=== PATIENT | male | born 1955 | race Caucasian/White ===

== ENCOUNTER → 2016-06-26 | Outpatient (CLI) | payer BC ==
--- NOTE | 2016-06-26 12:56 | ECHOF ---
Referral Reason:R06.09 other forms of dyspnea MEASUREMENTS -------- HEIGHT: 175.3 cm WEIGHT: 117.9 kg BP: RVIDd: 3.8 cm (< 3.3) IVSd: 1.1 cm (0.6 - 1.1) LVIDd: 4.8 cm (3.9 - 5.3) LVPWd: 1.1 cm (0.6 - 1.1) IVSs: 1.1 cm LVIDs: 5.3 cm LVPWs: 0.1 cm LA Diam: 3.9 cm (2.7 - 3.8) LAESV Index (A-L): 22.46 ml/m Ao Diam: 3.3 cm (2.0 - 3.7) AV Cusp: 2.2 cm (1.5 - 2.6) LA Diam: 4.1 cm (2.7 - 3.8) MV E Minor: 0.43 m/s MV DecT: 260 ms MV A Minor: 0.58 m/s MV E/A Ratio: 0.75 RAP: 5.00 mmHg RVSP: 16.08 mmHg FINDINGS -------- Sinus rhythm. This was a technically adequate study. There is mild concentric left ventricular hypertrophy. Overall left ventricular systolic function is low-normal with, an EF between 50 - 55 %. The right ventricle is mild to moderately enlarged. Normal LA size by volume 22+/-6 ml/m2. The right atrial size is normal. There is mild aortic valve sclerosis. There is no evidence of aortic regurgitation. Mild mitral annular calcification present. Mild mitral regurgitation is present. Mild tricuspid regurgitation present. There is no evidence of pulmonary hypertension. The right ventricular systolic pressure, as measured by Doppler, is 16.08mmHg. There is no pulmonic regurgitation present. The aortic root size is normal. There is no pericardial effusion. CONCLUSIONS -------- 1. There is mild concentric left ventricular hypertrophy. 2. There is no pulmonic regurgitation present. 3. The aortic root size is normal. 4. There is no pericardial effusion. 5. Overall left ventricular systolic function is low-normal with, an EF between 50 - 55 %. 6. The right ventricle is mild to moderately enlarged. 7. There is mild aortic valve sclerosis. 8. Mild mitral annular calcification present. 9. Mild mitral regurgitation is present. 10. Mild tricuspid regurgitation present. 11. There is no evidence of pulmonary hypertension. 12. The right ventricular systolic pressure, as measured by Doppler, is 16.08mmHg. P[employer]IC TUBING INSULATION SUPERVISOR: Mitzi Ram RDCS
== END | disposition home or self-care (01) ==
LOC: RADECHMAIN 08:14
PROVIDERS: ATTEND Family Medicine
DX: I08.3 Combined rheumatic disorders of mitral, aortic and tricuspid valves (principal)
CPT/HCPCS: 93306

== ENCOUNTER → 2016-11-27 | Outpatient (CLI) | payer BC ==
[2016-11-27 15:01] LABS: Anion Gap 12 mmol/L; Blood Urea Nitrogen 16 mg/dL (9-20); Calcium 9.2 mg/dL (8.4-10.2); Carbon Dioxide 27 mmol/L (22-30); Chloride 104 mmol/L (98-107); Glucose 162 mg/dL (74-99); Magnesium 1.9 mg/dL (1.6-2.3); Non-African American GFR(MDRD) >60 (>60 ml/min/1.73 sqM); Phosphorous 3.5 mg/dL (2.5-4.5); Sodium 143 mmol/L (137-145)
== END | disposition home or self-care (01) ==
LOC: LABWHC1 13:58
PROVIDERS: ATTEND Internal Medicine Sleep Medicine
DX: I27.0 Primary pulmonary hypertension (principal)
CPT/HCPCS: 36415; 80048; 83735; 84100

== ENCOUNTER → 2017-02-10 | Outpatient (CLI) | payer BC ==
[2017-02-10 17:42] LABS: CH 31.9; HCT 44.6 % (39.0-53.0); HDW 2.57; HGB 14.3 gm/dL (13.0-17.5); MCH 31.1 pg (25.0-35.0); MCHC 32.1 g/dL (31.0-37.0); MCV 96.9 fL (80.0-100.0); RDW 13.6 % (11.5-15.5); WBC 9.6 k/uL (3.8-10.6)
[2017-02-10 17:51] LABS: Anion Gap 13 mmol/L; Blood Urea Nitrogen 15 mg/dL (9-20); Calcium 9.2 mg/dL (8.4-10.2); Carbon Dioxide 25 mmol/L (22-30); Chloride 108 mmol/L (98-107); Glucose 98 mg/dL (74-99); Non-African American GFR(MDRD) >60 (>60 ml/min/1.73 sqM); Potassium 4.4 mmol/L (3.5-5.1); Sodium 146 mmol/L (137-145)
== END | disposition home or self-care (01) ==
LOC: LABWHC1 17:30
PROVIDERS: ATTEND Internal Medicine Interventional Cardiology
DX: Z01.812 Encounter for preprocedural laboratory examination (principal); I10 Essential (primary) hypertension; I25.10 Atherosclerotic heart disease of native coronary artery without angina pectoris
CPT/HCPCS: 36415; 80048; 85027

== ENCOUNTER 2017-02-13 09:53 | Day surgery (SDC) | payer BC ==
[2017-02-12 10:27] VITALS: BMI 39.7
[~2017-02-13 09:53] MED LIST: ALPRAZolam 0.25 MG TAB PO PRN; ALPRAZolam 0.5 MG TAB PO PRN; ASPIRIN 325 MG TAB PO STA; ATORVASTATIN 80 MG TAB PO STA; NITROGLYCERIN SL TABS 0.4 MG TAB SUBLINGUAL PRN; SODIUM CHLORIDE 0.9% 1,000 ML in EMPTY BAG 1 BAG IV ONE
[2017-02-13 10:24] LABS: Glucose,Whole Blood 138 mg/dL (75-99)
[2017-02-13] MEDS ORDERED: IV FLUID CONTINUATION 950 ML IV ONE (12:32)
[2017-02-13] MEDS ORDERED: diphenhydrAMINE 50 MG/ML 1 ML VIAL IVP ONE (12:47)
[2017-02-13] MEDS ORDERED: MIDAZOLAM 2 MG/2 ML VIAL IV ONE (12:47)
[2017-02-13] MEDS ORDERED: LIDOCAINE 2% INJ 20 MG/ML SQ ONE (12:48)
[2017-02-13] MEDS ORDERED: NITROGLYCERIN 1000MCG/10ML SYRINGE INTRACORON ONE (12:57)
[2017-02-13] MEDS ORDERED: IOHEXOL 350 MG/ML 100 ML BOTTLE INJ ONE (13:02)
[2017-02-13] MEDS ORDERED: SODIUM CHLORIDE 0.9% 1,000 ML IV SCH (14:00)
[2017-02-13 15:22] VITALS: RESP 18; TEMP 97.9
[2017-02-13 18:26] VITALS: BP 98/55; PULSE 81
[2017-02-13] MEDS ORDERED: PANTOPRAZOLE 40 MG TABLET PO SCH (21:00)
[2017-02-13] MEDS ORDERED: OXYBUTYNIN 10 MG TAB.ER.24 PO SCH (21:00)
[2017-02-13] MEDS ORDERED: ASPIRIN 81 MG CHEW PO SCH (21:00)
[2017-02-13] MEDS ORDERED: ATORVASTATIN 20 MG TAB PO SCH (21:00)
[2017-02-13] MEDS ORDERED: LISINOPRIL 5 MG TAB PO SCH (21:00)
[2017-02-14] MEDS ORDERED: METOPROLOL TARTRATE 50 MG TAB PO SCH (09:00)
--- NOTE | 2017-02-14 17:40 | CC ---
DATE OF SERVICE: 02/13/2017 PROCEDURE: Left heart catheterization, coronary angiography and left ventriculography. PERFORMED BY: Dr. Jim Olvera. CLINICAL INFORMATION: Mr. Roby Quinteros is a 61 -year-old gentleman with known history of CAD, hypertension, type 2 diabetes. He underwent stenting of the mid LAD performed by me in 2007 and at that time, he had a very critical long lesion in the mid LAD that was stented with drug eluting stents. Because of symptoms suggestive of angina, he was advised repeat cardiac catheterization. Risks, benefits, options and rationale were explained. PROCEDURE NOTE: Under local anesthesia and strict aseptic precautions, a 6 Dominican introducer was placed in the right femoral artery. Using standard Amilcar catheters, I performed coronary angiography and a pigtail catheter was used to perform LV gram. The catheter and sheath were as taken out and AngioSeal device was used to secure hemostasis. He was sent to the room in stable condition. CARDIAC CATHETERIZATION FINDINGS: The left ventricle end diastolic pressure was about 12 mmHg without any gradient across the aortic valve. CORONARY ANGIOGRAPHY FINDINGS: Right coronary artery is dominant vessel, has minor irregularities. No significant disease. Bifurcates into large PDA and PLV both of which supply a sizable amount of myocardium. There is no significant disease in the dominant RCA. Left main coronary artery: This is short, patent disease free vessel that bifurcates into LAD and circumflex. Left anterior descending coronary artery: This is a good caliber vessel that has about 35 to 40% stenosis in the mid portion and beyond this it gives off a diagonal branch and then the stented segment is widely patent. Vessel runs all the way to the apex, gives off several septal and diagonal branches which are free of significant disease. LAD therefore has a mid lesion of 40% which is not significant and the stented segment which is beyond the 40% lesion is widely patent with brisk flow. Left posterior circumflex coronary artery: Technically this is a nondominant vessel, good caliber, good distribution vessel which gives off two obtuse marginal branches that are free of significant disease with minor irregularities and then continues as a posterolateral branch. There were minor irregularities throughout but no significant disease in the nondominant circumflex. LEFT VENTRICULOGRAM: This was performed in 30 degree MORROW projection and revealed a left ventricle which is normal size with good systolic function. There is mild distal anteroapical hypokinesia with estimated ejection fraction 50% by visual inspection. There is no significant mitral regurgitation. FINAL IMPRESSION: This patient has normal filling pressures. Mild anteroapical hypokinesia with estimated ejection fraction of 50%. There was a 40% mid LAD lesion but the stented segment in the LAD is widely patent. The dominant RCA and nondominant circumflex have minor irregularities and no significant disease. RECOMMENDATIONS: The findings were discussed with the patient and . I am recommending continued medical therapy and risk factor modification. The patient will be discharged later today if he remains stable. The patient received moderate conscious sedation for a total duration of 30 minutes with Benadryl and Versed. His oxygenation was monitored closely. MTDD
--- NOTE | 2017-02-14 17:45 | MISC ---
Dear Dr. Singh: Thank you for the opportunity to participate in the care of Mr. Roby Quinteros. This gentleman has noncritical disease in the mid LAD and the stented segment is widely patent. His LV function is fairly well preserved with mild anteroapical hypokinesia. Estimated ejection fraction is 50%. Aggressive medical therapy with risk factor modification is advised. His filling pressures are normal. LV function is fairly well preserved. He does not have any significant obstructive CAD to explain his symptoms of shortness of breath. A full pulmonary evaluation may be beneficial for this patient. Thank you for your referral. Please call for questions. With kindest regards, Sincerely yours, LINDA
== END 2017-02-13 19:03 | disposition home or self-care (01) ==
LOC: CATHCVL 09:53 → 3OBS 13:05 → CATHCVL 19:03
PROVIDERS: ATTEND Internal Medicine Interventional Cardiology
DX: I25.110 Atherosclerotic heart disease of native coronary artery with unstable angina pectoris (principal); I10 Essential (primary) hypertension; E11.9 Type 2 diabetes mellitus without complications; Z95.5 Presence of coronary angioplasty implant and graft; J44.9 Chronic obstructive pulmonary disease, unspecified; E78.00 Pure hypercholesterolemia, unspecified; G47.33 Obstructive sleep apnea (adult) (pediatric); E66.9 Obesity, unspecified; Z68.41 Body mass index [BMI] 40.0-44.9, adult; Z79.84 Long term (current) use of oral hypoglycemic drugs; Z79.82 Long term (current) use of aspirin; Z79.899 Other long term (current) drug therapy; Z87.891 Personal history of nicotine dependence
CPT/HCPCS: 93458; 99152; C1760; C1894 ×2; C1769 ×2; J2001; J2250; J1200; Q9967

== ENCOUNTER → 2017-02-22 | Outpatient (CLI) | payer BC ==
[2017-02-22 10:42] LABS: CH 30.3; CHCM 32.8; HCT 42.3 % (39.0-53.0); HDW 2.81; HGB 14.3 gm/dL (13.0-17.5); MCH 31.4 pg (25.0-35.0); MCHC 33.9 g/dL (31.0-37.0); MCV 92.7 fL (80.0-100.0); Mean Platelet Volume 6.5; RBC 4.57 m/uL (4.30-5.90); RDW 12.9 % (11.5-15.5); WBC 7.5 k/uL (3.8-10.6)
[2017-02-22 10:58] LABS: ALT 58 U/L (21-72); AST 46 U/L (17-59); Alkaline Phosphatase 119 U/L (38-126); Anion Gap 11 mmol/L; Blood Urea Nitrogen 13 mg/dL (9-20); Calcium 9.2 mg/dL (8.4-10.2); Carbon Dioxide 24 mmol/L (22-30); Chloride 106 mmol/L (98-107); Glucose 135 mg/dL (74-99); Non-African American GFR(MDRD) >60 (>60 ml/min/1.73 sqM); Potassium 4.4 mmol/L (3.5-5.1); Sodium 141 mmol/L (137-145); Total Bilirubin 0.4 mg/dL (0.2-1.3); Total Protein 7.2 g/dL (6.3-8.2)
[2017-02-22 11:28] LABS: Prostate Specific Antigen 6.73 ng/mL (0.00-4.00)
== END | disposition home or self-care (01) ==
LOC: LABWHC1 10:20
PROVIDERS: ATTEND Nurse Practitioner Adult Health
DX: I25.10 Atherosclerotic heart disease of native coronary artery without angina pectoris (principal); I10 Essential (primary) hypertension; N40.0 Benign prostatic hyperplasia without lower urinary tract symptoms
CPT/HCPCS: 36415; 80053; 84153; 84154; 85027

== ENCOUNTER → 2017-11-03 | Day surgery (SDC) | payer BC ==
[2017-10-30 13:30] VITALS: BMI 38.7
[~2017-11-03] MED LIST changes: -ALPRAZolam 0.25 MG TAB PO PRN; -ALPRAZolam 0.5 MG TAB PO PRN; -ASPIRIN 325 MG TAB PO STA; -ATORVASTATIN 80 MG TAB PO STA; +LACTATED RINGERS 1,000 ML IV ONE; +LACTATED RINGERS 1,000 ML IV SCH; +LIDOCAINE 1% INJ 10MG/ML (20 ML MDV) ONE; -NITROGLYCERIN SL TABS 0.4 MG TAB SUBLINGUAL PRN; +PROPOFOL 10 MG/ML 20 ML VIAL IV ONE; -SODIUM CHLORIDE 0.9% 1,000 ML in EMPTY BAG 1 BAG IV ONE; +fentaNYL (PF) 50 MCG/ML 2 ML AMP ONE
[2017-11-03 07:05] VITALS: TEMP 97.8
[2017-11-03 07:34] LABS: Glucose,Whole Blood 136 mg/dL (75-99)
--- NOTE | 2017-11-03 07:36 | P.GSHP ---
History of Present Illness H&P Date: 11/03/17 CHIEF COMPLAINT: GERD HISTORY OF PRESENT ILLNESS: The patient is a 62-year-old male who presents reports gastroesophageal reflux disease. Upper endoscopy was offered for further evaluation and management. PAST MEDICAL HISTORY: Please see list. PAST SURGICAL HISTORY: Please see list. MEDICATIONS: Please see list. ALLERGIES: Please see list. SOCIAL HISTORY: No illicit drug use FAMILY HISTORY: No reports of Crohn disease or ulcerative colitis. REVIEW OF ORGAN SYSTEMS: CONSTITUTIONAL: No reports of fevers or chills. GI: Denies any blood in stools or constipation. PHYSICAL EXAM: VITAL SIGNS: Stable GENERAL: Well-developed and pleasant in no acute distress. HEENT: No scleral icterus. Extraocular movements grossly intact. Moist buccal mucosa. NECK: Supple without lymphadenopathy. CHEST: Unlabored respirations. Equal bilateral excursions. CARDIOVASCULAR: Regular rate and rhythm. Distal 2+ pulses. ABDOMEN: Soft, nondistended. MUSCULOSKELETAL: No clubbing, cyanosis, or edema. ASSESSMENT: 1. Gastroesophageal reflux disease PLAN: 1. Recommend proceeding with an upper endoscopy Past Medical History Past Medical History: Coronary Artery Disease (CAD), COPD, Diabetes Mellitus, GERD/Reflux, Hyperlipidemia, Hypertension, Sleep Apnea/CPAP/BIPAP Additional Past Medical History / Comment(s): hx SOB, caudia equina syndrome; has minimal feeling from waist down, hx of hemorrhoids, aspirates food occ. causing persistent sore throat, hoarseness History of Any Multi-Drug Resistant Organisms: None Reported Past Surgical History: Back Surgery, Heart Catheterization With Stent Additional Past Surgical History / Comment(s): Cervical Fusion; Back surgery; Hemorrhoidectomy x 3; eye surgery right eye, cystoscopy, heart stent x1 Past Anesthesia/Blood Transfusion Reactions: No Reported Reaction Additional Past Anesthesia/Blood Transfusion Reaction / Comment(s): Pt states he never has had blood tranfusion Date of Last Stent Placement:: 2007 Smoking Status: Former smoker - Past Family History Father Family Medical History: Cancer Son(s) Family Medical History: Cancer Mother Family Medical History: Neurologic Disorder Additional Family Medical History / Comment(s): parkinsons Medications and Allergies Home Medications Medication Instructions Recorded Confirmed Type Aspirin 81 mg PO BID 11/11/14 11/03/17 History Atorvastatin [Lipitor] 20 mg PO HS 02/12/17 11/03/17 History Lisinopril [Zestril] 5 mg PO QAM 02/12/17 11/03/17 History Metoprolol Tartrate [Lopressor] 25 mg PO BID 02/12/17 11/03/17 History metFORMIN HCL [Glucophage] 500 mg PO BID 02/12/17 11/03/17 History Albuterol Inhaler [Ventolin Hfa 1 - 2 puff INHALATION RT-Q6H PRN 10/30/17 History Inhaler] Bisacodyl [Dulcolax] 5 mg PO BID 10/30/17 11/03/17 History Famotidine 40 mg PO DAILY 10/30/17 11/03/17 History Gabapentin [Neurontin] 100 mg PO DAILY 10/30/17 11/03/17 History Ipratropium-Albuterol Nebulize 3 ml INHALATION Q6HR PRN 10/30/17 11/03/17 History [Duoneb 0.5 mg-3 mg/3 ml Soln] Nitroglycerin Sl Tabs [Nitrostat] 0.4 mg SUBLINGUAL Q5M PRN 10/30/17 11/03/17 History Allergies Allergy/AdvReac Type Severity Reaction Status Date / Time No Known Allergies Allergy Verified 10/30/17 13:23 Surgical - Exam Vital Signs Temp Pulse Resp BP Pulse Ox 97.8 F 73 14 165/79 94 L 11/03/17 07:04 11/03/17 07:04 11/03/17 07:04 11/03/17 07:04 11/03/17 07:04
--- NOTE | 2017-11-03 07:46 | P.PCN ---
Date of Procedure: 11/03/17 Description of Procedure: PREOPERATIVE DIAGNOSIS: Gastroesophageal reflux disease. Morbid obesity. POSTOPERATIVE DIAGNOSIS: Morbid obesity. Gastritis. Gastroesophageal reflux disease. Duodenitis OPERATION: Esophagogastroduodenoscopy with biopsies along antrum and duodenum SURGEON: Jamila Hayes MD ANESTHESIA: MAC. INDICATIONS: The patient is a 62-year-old male who presents with a history of reflux disease. Benefits and risks of the procedure were described. Informed consent was obtained. DESCRIPTION: The patient was brought into the endoscopy suite and laid in the left lateral decubitus position. An Olympus gastroscope was passed along the posterior oropharynx down to the distal esophagus where the squamocolumnar junction was encountered at 42 cm from the incisors. The stomach was entered and no bile reflux was found. Additional findings are listed below. Biopsies with cold forceps were obtained of the antrum. The first through third portion of the duodenum was examined and remarkable for duodenitis. Retroflexion of the scope confirmed Hill grade 2 lower esophageal valve. The squamocolumnar junction demostrated LA grade A erosive esophagitis. The stomach was desufflated. The patient tolerated the procedure well. FINDINGS: Squamocolumnar junction 42 cm from the incisors. Diaphragmatic hiatus at 42 cm. Hill grade 2 lower esophageal valve. LA grade A erosive esophagitis. Active duodenitis. Active gastritis through some bleeding RECOMMENDATIONS: Further recommendations pending results of pathology report. Upper endoscopy as needed. Plan - Discharge Summary New Discharge Prescriptions: No Action Aspirin 81 mg PO BID metFORMIN HCL [Glucophage] 500 mg PO BID Metoprolol Tartrate [Lopressor] 25 mg PO BID Lisinopril [Zestril] 5 mg PO QAM Atorvastatin [Lipitor] 20 mg PO HS Nitroglycerin Sl Tabs [Nitrostat] 0.4 mg SUBLINGUAL Q5M PRN PRN Reason: Angina Albuterol Inhaler [Ventolin Hfa Inhaler] 1 - 2 puff INHALATION RT-Q6H PRN PRN Reason: Shortness Of Breath Famotidine 40 mg PO DAILY Bisacodyl [Dulcolax] 5 mg PO BID Ipratropium-Albuterol Nebulize [Duoneb 0.5 mg-3 mg/3 ml Soln] 3 ml INHALATION Q6HR PRN PRN Reason: Shortness Of Breath Gabapentin [Neurontin] 100 mg PO DAILY Discharge Medication List Aspirin 81 mg PO BID 11/11/14 [History] Atorvastatin [Lipitor] 20 mg PO HS 02/12/17 [History] Lisinopril [Zestril] 5 mg PO QAM 02/12/17 [History] Metoprolol Tartrate [Lopressor] 25 mg PO BID 02/12/17 [History] metFORMIN HCL [Glucophage] 500 mg PO BID 02/12/17 [History] Albuterol Inhaler [Ventolin Hfa Inhaler] 1 - 2 puff INHALATION RT-Q6H PRN [History] Bisacodyl [Dulcolax] 5 mg PO BID 10/30/17 [History] Famotidine 40 mg PO DAILY 10/30/17 [History] Gabapentin [Neurontin] 100 mg PO DAILY 10/30/17 [History] Ipratropium-Albuterol Nebulize [Duoneb 0.5 mg-3 mg/3 ml Soln] 3 ml INHALATION Q6HR PRN 10/30/17 [History] Nitroglycerin Sl Tabs [Nitrostat] 0.4 mg SUBLINGUAL Q5M PRN 10/30/17 [History] Follow up Appointment(s)/Referral(s): Jamila Hayes MD [STAFF PHYSICIAN] - As Needed Patient Instructions/Handouts: *[facility] - (Anesthesia) Endoscopy Discharge Instructions, Upper Endoscopy (DC) Activity/Diet/Wound Care/Special Instructions: REST TODAY, ENCOURAGE FLUIDS AT HOME
[2017-11-03 07:48] VITALS: RESP 16
[2017-11-03 07:56] VITALS: BP 111/72; PULSE 71
== END | disposition home or self-care (01) ==
LOC: ORWHC2ENDO 06:44
PROVIDERS: ATTEND Surgery Plastic and Reconstructive Surgery
DX: K29.50 Unspecified chronic gastritis without bleeding (principal); K22.10 Ulcer of esophagus without bleeding; K21.0 Gastro-esophageal reflux disease with esophagitis; E66.01 Morbid (severe) obesity due to excess calories; Z68.38 Body mass index [BMI] 38.0-38.9, adult; I25.10 Atherosclerotic heart disease of native coronary artery without angina pectoris; E11.9 Type 2 diabetes mellitus without complications; Z79.84 Long term (current) use of oral hypoglycemic drugs; G83.4 Cauda equina syndrome; Z87.891 Personal history of nicotine dependence; J44.9 Chronic obstructive pulmonary disease, unspecified; I10 Essential (primary) hypertension; E78.5 Hyperlipidemia, unspecified; G47.30 Sleep apnea, unspecified; Z99.89 Dependence on other enabling machines and devices; Z95.5 Presence of coronary angioplasty implant and graft; Z79.82 Long term (current) use of aspirin; Z79.899 Other long term (current) drug therapy
CPT/HCPCS: 88305; 43239; J2001; J3010; J2704

== ENCOUNTER → 2017-12-10 | Outpatient (CLI) | payer BC ==
[2017-12-10 11:27] LABS: Blood Urea Nitrogen 12 mg/dL (9-20)
--- NOTE | 2017-12-10 12:19 | CT ---
EXAMINATION TYPE: CT chest w con DATE OF EXAM: 12/10/2017 COMPARISON: 04/05/2016 HISTORY: Follow up to pulmonary nodule CT DLP: 645.7 mGycm Automated exposure control for dose reduction was used. CONTRAST: CT scan of the chest is performed with IV Contrast, patient injected with 100 mL of Isovue 300. FINDINGS: LUNGS: Mild emphysematous change is felt present bilaterally. There is some linear scarring and/ or a telectatic change in both lung bases near diaphragm. No suspicious peripheral nodule or mass is prese nt bilaterally. No pleural effusion or pneumothorax is seen. No suspicious consolidation or groundgla ss opacity is noted. Tracheobronchial tree is patent. MEDIASTINUM: There is borderline subcarinal lymph node measuring 2.3 x 1.2 cm which is stable. No ca rdiomegaly or pericardial effusion is seen. There is coronary artery calcification and/or coronary st ent in the LAD distribution noted. Aorta of normal caliber. OTHER: Multilevel hypertrophic and degenerative change of the spine. IMPRESSION: 1. Mild emphysematous changes with bibasilar linear scar or atelectasis stable. 2. Stable borderline subcarinal lymph node.
== END | disposition home or self-care (01) ==
LOC: RADCTMAIN 10:50
PROVIDERS: ATTEND Internal Medicine Sleep Medicine
DX: J43.9 Emphysema, unspecified (principal)
CPT/HCPCS: 82565; 84520; 71260; 36415; Q9967

== ENCOUNTER → 2018-01-13 | Outpatient (CLI) | payer BC ==
[2018-01-13 13:17] LABS: Anion Gap 9 mmol/L; Blood Urea Nitrogen 13 mg/dL (9-20); Calcium 9.1 mg/dL (8.4-10.2); Carbon Dioxide 26 mmol/L (22-30); Chloride 106 mmol/L (98-107); Glucose 114 mg/dL (74-99); Sodium 141 mmol/L (137-145)
[2018-01-13 13:24] LABS: Potassium 4.3 mmol/L (3.5-5.1)
--- NOTE | 2018-01-13 14:15 | CT ---
EXAMINATION TYPE: CT urogram wo/w con DATE OF EXAM: 01/13/2018 COMPARISON: 12/10/2017 HISTORY: Right flank pain, benign neoplasm of kidney CT DLP: 3704.8 mGycm CONTRAST: Performed and without and with IV Contrast, patient injected with 100 mL of Isovue 300. CT Urography was performed with unenhanced followed by enhanced images of the kidneys, ureters and ur inary bladder. Delayed images were obtained. 3d reconstruction was perfromed at a separate work sta tion. FINDINGS: KIDNEYS/BLADDER: No hydronephrosis. No nephrolithiasis. No disctinct renal mass. Urinary bladder g rossly unremarkable. LUNG BASES-: No visible nodule. No infiltrate. LIVER/GB: No calcified gallstones. No space occupying hepatic lesion. Biliary tree is of normal ca liber. PANCREAS: No inflammation. No distinct mass. SPLEEN: No splenic enlargement. No lesion seen. ADRENALS: No nodule. No thickening. BOWEL: Normal appendix. Normal bowel caliber. No inflammation. GENITAL ORGANS: No gross abnormality. LYMPH NODES: No greater than 1cm abdominal or pelvic lymph nodes are appreciated. AORTA: No significant abnormality. OSSEOUS STRUCTURES: No significant abnormality is seen. OTHER: No significant additional abnormality is seen. IMPRESSION: 1. No evidence for renal mass, hydronephrosis or nephrolithiasis.
== END | disposition home or self-care (01) ==
LOC: RADCTMAIN 12:32
PROVIDERS: ATTEND Surgery
DX: D30.01 Benign neoplasm of right kidney (principal)
CPT/HCPCS: 80048; 74178; 36415; 74400; Q9967

== ENCOUNTER 2018-12-02 11:31 | Emergency (ER) | payer BC ==
[2018-12-02 12:05] VITALS: TEMP 98.8
--- NOTE | 2018-12-02 12:46 | ED ---
General Adult HPI - General Chief complaint: Chest Pain Stated complaint: sent by Dr Singh Time Seen by Provider: 12/02/18 12:00 Source: patient, RN notes reviewed Mode of arrival: ambulatory Limitations: no limitations - History of Present Illness Initial comments: This is a 63-year-old male presents emergency Department complaining of anterior chest pain. Patient states about 2 weeks ago he fell and landed on his chest and causing some significant anterior chest pain that pain lasted about a week and then subsided and then about one week ago it came back and it hurts to take a deep breath it hurts really bad if he coughs or sneezes. Patient states he presses on the left upper chest is tender there but the pain seems to also be center chest where it doesn't hurt to palpate. Patient is very concerned that something else is going on such as a thoracic aneurysm and/or PE and his primary doctor sent him in to get a scan to rule those out. Patient states she short of breath but easily short of breath that he has COPD. Patient denies any palpitations. Patient denies any nausea. Patient states he does have some pain in the back directly across from the sternum but states it also gets worse with deep breathing. Patient denies any pain in the arms or in the jaw. Patient denies headache patient denies any numbness or weakness. Patient denies any abdominal pain. - Related Data Home Medications Medication Instructions Recorded Confirmed Aspirin 81 mg PO BID 11/11/14 12/02/18 Atorvastatin [Lipitor] 20 mg PO HS 02/12/17 12/02/18 Lisinopril [Zestril] 5 mg PO DAILY 02/12/17 12/02/18 Metoprolol Tartrate [Lopressor] 25 mg PO BID 02/12/17 12/02/18 metFORMIN HCL [Glucophage] 500 mg PO BID 02/12/17 12/02/18 Albuterol Inhaler [Ventolin Hfa 1 - 2 puff INHALATION RT-Q6H PRN 10/30/1706/10 Inhaler] Bisacodyl [Dulcolax] 5 mg PO BID PRN 10/30/17 12/02/18 Famotidine 40 mg PO DAILY 10/30/17 12/02/18 Gabapentin [Neurontin] 100 mg PO DAILY 10/30/17 12/02/18 Ipratropium-Albuterol Nebulize 3 ml INHALATION RT-TID 10/30/17 12/02/18 [Duoneb 0.5 mg-3 mg/3 ml Soln] Nitroglycerin Sl Tabs [Nitrostat] 0.4 mg SUBLINGUAL Q5M PRN 10/30/17 12/02/18 Biotin 5 mg PO DAILY 12/02/18 12/02/18 Cholecalciferol [Vitamin D3 (25 5,000 unit PO DAILY 12/02/18 12/02/18 Mcg = 1000 Iu)] Docusate [Colace] 100 mg PO BID PRN 12/02/18 12/02/18 Ibuprofen [Motrin] 800 mg PO Q6H PRN 12/02/18 12/02/18 Lubiprostone [Amitiza] 24 mcg PO BID 12/02/18 12/02/18 Montelukast [Singulair] 10 mg PO HS 12/02/18 12/02/18 Polyethylene Glycol 3350 [Miralax] 17 gm PO DAILY PRN 12/02/18 12/02/18 Allergies Allergy/AdvReac Type Severity Reaction Status Date / Time No Known Allergies Allergy Verified 12/02/18 14:20 Review of Systems ROS Statement: Those systems with pertinent positive or pertinent negative responses have been documented in the HPI. ROS Other: All systems not noted in ROS Statement are negative. Past Medical History Past Medical History: Coronary Artery Disease (CAD), COPD, Diabetes Mellitus, GERD/Reflux, Hyperlipidemia, Hypertension, Sleep Apnea/CPAP/BIPAP Additional Past Medical History / Comment(s): hx SOB, caudia equina syndrome; has minimal feeling from waist down, hx of hemorrhoids, aspirates food occ. causing persistent sore throat, hoarseness History of Any Multi-Drug Resistant Organisms: None Reported Past Surgical History: Back Surgery, Heart Catheterization With Stent Additional Past Surgical History / Comment(s): Cervical Fusion; Back surgery; Hemorrhoidectomy x 3; eye surgery right eye, cystoscopy, heart stent x1 Past Anesthesia/Blood Transfusion Reactions: No Reported Reaction Additional Past Anesthesia/Blood Transfusion Reaction / Comment(s): Pt states he never has had blood tranfusion Date of Last Stent Placement:: 2007 Past Psychological History: Anxiety Smoking Status: Former smoker Past Alcohol Use History: None Reported Past Drug Use History: None Reported - Past Family History Father Family Medical History: Cancer Son(s) Family Medical History: Cancer Mother Family Medical History: Neurologic Disorder Additional Family Medical History / Comment(s): parkinsons General Exam - General Exam Comments Initial Comments: GENERAL: Patient is well-developed and well-nourished. Patient is nontoxic and well- hydrated and is in mild distress. ENT: Neck is soft and supple. No significant lymphadenopathy is noted. Oropharynx is clear. Moist mucous membranes. Neck has full range of motion without elic iting any pain. EYES: The sclera were anicteric and conjunctiva were pink and moist. Extraocular m ovements were intact and pupils were equal round and reactive to light. Eyelids were unremarkable. PULMONARY: Unlabored respirations. Good breath sounds bilaterally. No audible rales rhonchi or wheezing was noted. CARDIOVASCULAR: There is a regular rate and rhythm without any murmurs gallops or rubs. The sternum is not tender however the left upper chest is tender to palpation. Patient states that is one of the areas that is causing quite a bit of pain when he sneezes or coughs. ABDOMEN: Soft and nontender with normal bowel sounds. SKIN: Skin is clear with no lesions or rashes and otherwise unremarkable. NEUROLOGIC: Patient is alert and oriented x3. Cranial nerves II through XII are grossly intact. Motor and sensory are also intact. Normal speech, volume and content. Symmetrical smile. MUSCULOSKELETAL: Normal extremities with adequate strength and full range of motion. Mild pedal edema. No calf tenderness. LYMPHATICS: No significant lymphadenopathy is noted PSYCHIATRIC: Normal psychiatric evaluation. Limitations: no limitations Course Vital Signs 12/02/18 12/02/18 12/02/18 12:02 12:25 14:00 Temperature 98.8 F Pulse Rate 98 85 Pulse Rate [ 72 Bilateral Disassembler Product ] Respiratory 20 18 Rate Blood Pressure 149/88 135/84 O2 Sat by Pulse 96 100 Oximetry Medical Decision Making - Medical Decision Making EKG shows normal sinus rhythm at 90 bpm OH interval is 166 QRS is 110 QT interval 372 QTC is 474. Patient's EKG shows no ST segment elevation or depression or T wave abnormalities are noted. Patient's computed tomography scan of the chest shows no PE or aortic dissection. - Lab Data Result diagrams: 12/02/18 12:20 12/02/18 12:20 Lab Results 12/02/18 12/02/18 12/02/18 Range/Units 12:20 12:20 12:20 WBC 7.8 (3.8-10.6) k/uL RBC 4.15 L (4.30-5.90) m/uL Hgb 13.1 (13.0-17.5) gm/dL Hct 38.4 L (39.0-53.0) % MCV 92.7 (80.0-100.0) fL MCH 31.5 (25.0-35.0) pg MCHC 34.0 (31.0-37.0) g/dL RDW 14.9 (11.5-15.5) % Plt Count 299 (150-450) k/uL Neutrophils % 66 % Lymphocytes % 22 % Monocytes % 6 % Eosinophils % 3 % Basophils % 0 % Neutrophils # 5.2 (1.3-7.7) k/uL Lymphocytes # 1.7 (1.0-4.8) k/uL Monocytes # 0.5 (0-1.0) k/uL Eosinophils # 0.3 (0-0.7) k/uL Basophils # 0.0 (0-0.2) k/uL PT 9.8 (9.0-12.0) sec INR 0.9 (<1.2) APTT 26.0 (22.0-30.0) sec D-Dimer 0.32 (<0.60) mg/L FEU Sodium 142 (137-145) mmol/L Potassium 4.3 (3.5-5.1) mmol/L Chloride 109 H (98-107) mmol/L Carbon Dioxide 24 (22-30) mmol/L Anion Gap 9 mmol/L BUN 14 (9-20) mg/dL Creatinine 0.65 L (0.66-1.25) mg/dL Est GFR (CKD-EPI)AfAm >90 (>60 ml/min/1.73 sqM) Est GFR (CKD-EPI)NonAf >90 (>60 ml/min/1.73 sqM) Glucose 136 H (74-99) mg/dL Calcium 9.1 (8.4-10.2) mg/dL Magnesium 1.9 (1.6-2.3) mg/dL Total Bilirubin 0.2 (0.2-1.3) mg/dL AST 27 (17-59) U/L ALT 23 (21-72) U/L Alkaline Phosphatase 102 (38-126) U/L Troponin I (0.000-0.034) ng/mL Total Protein 7.1 (6.3-8.2) g/dL Albumin 4.1 (3.5-5.0) g/dL 12/02/18 Range/Units 12:20 WBC (3.8-10.6) k/uL RBC (4.30-5.90) m/uL Hgb (13.0-17.5) gm/dL Hct (39.0-53.0) % MCV (80.0-100.0) fL MCH (25.0-35.0) pg MCHC (31.0-37.0) g/dL RDW (11.5-15.5) % Plt Count (150-450) k/uL Neutrophils % % Lymphocytes % % Monocytes % % Eosinophils % % Basophils % % Neutrophils # (1.3-7.7) k/uL Lymphocytes # (1.0-4.8) k/uL Monocytes # (0-1.0) k/uL Eosinophils # (0-0.7) k/uL Basophils # (0-0.2) k/uL PT (9.0-12.0) sec INR (<1.2) APTT (22.0-30.0) sec D-Dimer (<0.60) mg/L FEU Sodium (137-145) mmol/L Potassium (3.5-5.1) mmol/L Chloride (98-107) mmol/L Carbon Dioxide (22-30) mmol/L Anion Gap mmol/L BUN (9-20) mg/dL Creatinine (0.66-1.25) mg/dL Est GFR (CKD-EPI)AfAm (>60 ml/min/1.73 sqM) Est GFR (CKD-EPI)NonAf (>60 ml/min/1.73 sqM) Glucose (74-99) mg/dL Calcium (8.4-10.2) mg/dL Magnesium (1.6-2.3) mg/dL Total Bilirubin (0.2-1.3) mg/dL AST (17-59) U/L ALT (21-72) U/L Alkaline Phosphatase (38-126) U/L Troponin I <0.012 (0.000-0.034) ng/mL Total Protein (6.3-8.2) g/dL Albumin (3.5-5.0) g/dL Disposition Clinical Impression: Chest wall pain Disposition: HOME SELF-CARE Condition: Good Instructions (If sedation given, give patient instructions): Chest Wall Pain (ED) Is patient prescribed a controlled substance at d/c from ED?: No Referrals: Antoni Singh MD [Primary Care Provider] - 1-2 days Time of Disposition: 15:01
[2018-12-02 12:57] LABS: Basophils % (A) 0 %; Eosinophils # (A) 0.3 k/uL (0-0.7); Eosinophils % (A) 3 %; HCT 38.4 % (39.0-53.0); HGB 13.1 gm/dL (13.0-17.5); Lymphocytes # (A) 1.7 k/uL (1.0-4.8); Lymphocytes % (A) 22 %; MCH 31.5 pg (25.0-35.0); MCV 92.7 fL (80.0-100.0); Mean Platelet Volume 6.9; Monocytes # (A) 0.5 k/uL (0-1.0); Monocytes % (A) 6 %; Neutrophils # (A) 5.2 k/uL (1.3-7.7); Neutrophils % (A) 66 %; Platelet Count 299 k/uL (150-450); RBC 4.15 m/uL (4.30-5.90); RDW 14.9 % (11.5-15.5); WBC 7.8 k/uL (3.8-10.6)
[2018-12-02 13:08] LABS: ALT 23 U/L (21-72); AST 27 U/L (17-59); African American GFR (CKD) >90 (>60 ml/min/1.73 sqM); Albumin 4.1 g/dL (3.5-5.0); Alkaline Phosphatase 102 U/L (38-126); Anion Gap 9 mmol/L; Blood Urea Nitrogen 14 mg/dL (9-20); Calcium 9.1 mg/dL (8.4-10.2); Carbon Dioxide 24 mmol/L (22-30); Chloride 109 mmol/L (98-107); Glucose 136 mg/dL (74-99); Magnesium 1.9 mg/dL (1.6-2.3); Potassium 4.3 mmol/L (3.5-5.1); Sodium 142 mmol/L (137-145); Total Bilirubin 0.2 mg/dL (0.2-1.3); Total Protein 7.1 g/dL (6.3-8.2)
[2018-12-02 13:14] LABS: D-Dimer 0.32 mg/L FEU (<0.60); INR 0.9 (<1.2); Prothrombin Time 9.8 sec (9.0-12.0)
[2018-12-02 14:01] VITALS: RESP 18
--- NOTE | 2018-12-02 14:33 | CT ---
EXAMINATION TYPE: CT angio chest DATE OF EXAM: 12/02/2018 COMPARISON: Prior CT chest 12/10/2017 HISTORY: Mid chest pain, back pain CT DLP: 1218 mGycm Automated exposure control for dose reduction was used. CONTRAST: CTA scan of the thorax is performed with IV Contrast, patient injected with 100 mL of Isovue 370, pul monary embolism protocol. MIP images are created and reviewed. 3D reconstructed images are created on an independent workstation and reviewed. FINDINGS: LUNGS: The lungs are remarkable for some probable basilar atelectatic changes or scarring, there is n o concerning parenchymal mass or nodule identified. There is no pleural effusion or pneumothorax se en. The tracheobronchial tree is patent, there is some bronchial wall thickening. AORTA: No additional significant abnormality is seen. MEDIASTINUM: There is satisfactory enhancement of the pulmonary artery and its branches, there is no CT evidence for pulmonary embolism. There are no greater than 1 cm hilar or mediastinal lymph nodes. No pericardial effusion is seen. Coronary artery calcifications are mild to moderate OTHER: No additional significant abnormality is seen. There are changes of gynecomastia. IMPRESSION: CORRELATE FOR POSSIBLE REACTIVE AIRWAYS DISEASE OR BRONCHITIS. No evident pulmonary embolism. No aort ic aneurysm.
[2018-12-02] MEDS ORDERED: KETOROLAC 30 MG/ML 1 ML VIAL IVP STA (15:15)
[2018-12-02 15:27] VITALS: BP 141/82; PULSE 52
== END 2018-12-02 15:43 | disposition home or self-care (01) ==
LOC: EC 11:31
DX: R07.89 Other chest pain (principal); R60.9 Edema, unspecified; I25.10 Atherosclerotic heart disease of native coronary artery without angina pectoris; J44.9 Chronic obstructive pulmonary disease, unspecified; E11.9 Type 2 diabetes mellitus without complications; K21.9 Gastro-esophageal reflux disease without esophagitis; E78.5 Hyperlipidemia, unspecified; I10 Essential (primary) hypertension; G47.30 Sleep apnea, unspecified; Z99.89 Dependence on other enabling machines and devices; F41.9 Anxiety disorder, unspecified; Z87.891 Personal history of nicotine dependence; Z79.82 Long term (current) use of aspirin; Z79.84 Long term (current) use of oral hypoglycemic drugs; Z79.899 Other long term (current) drug therapy; Z95.5 Presence of coronary angioplasty implant and graft
CPT/HCPCS: 36415; 93005; 85379; 80053; 83735; 84484; 85025; 85610; 85730; 71275; 99285; 96374; J1885; Q9967

== ENCOUNTER → 2019-02-19 | Outpatient (CLI) | payer BC ==
[2019-02-19 17:00] LABS: African American GFR (CKD) >90 (>60 ml/min/1.73 sqM); Anion Gap 11 mmol/L; Blood Urea Nitrogen 14 mg/dL (9-20); Carbon Dioxide 22 mmol/L (22-30); Chloride 108 mmol/L (98-107); Glucose 94 mg/dL (74-99); Potassium 4.5 mmol/L (3.5-5.1); Sodium 141 mmol/L (137-145)
--- NOTE | 2019-02-21 08:57 | CT ---
EXAMINATION TYPE: CT abdomen wo/w con DATE OF EXAM: 02/19/2019 COMPARISON: CT urogram dated 01/13/2018 HISTORY: abnormal renal US per patient history however no renal ultrasound available at this institut ion. CT DLP: 2722.0 mGycm Automated exposure control for dose reduction was used. TECHNIQUE: Helical acquisition of images was performed from the lung bases through the top of iliac crest to include entire abdomen. CONTRAST: Performed with Oral Contrast and with IV Contrast, patient injected with 100 mL of Isovue 300. FINDINGS: LUNG BASES: Multifocal pleural parenchymal scarring is seen at the lung bases. LIVER/GB: No cholelithiasis on the unenhanced images. PANCREAS: The liver is slightly hypoattenuated but does not meet criteria for hepatic steatosis. No i ntrahepatic biliary ductal dilatation is seen. No suspicious hepatic mass is identified. Geographic h ypoattenuation along the subcapsular portion of the left hepatic lobe may represent more focal fatty infiltration. No cholelithiasis is seen. No right upper quadrant fat stranding. Common bile duct appe ars within normal limits. SPLEEN: No splenomegaly. No abnormal enhancement. ADRENALS: No nodularity or thickening. KIDNEYS: No nephrolithiasis on the unenhanced images. No hydronephrosis. Cortical medullary and delay ed imaging fails to demonstrate evidence of a suspicious solid renal mass nor suspicious cystic renal mass. BOWEL: Appendix is partially visualized and air-filled, within normal limits. Moderate degree coloni c fecal stasis. No dilated large or small bowel. Diastases recti is mild. LYMPH NODES: No greater than 1 cm short axis lymph nodes in the abdomen. Nonenlarged with prominent portacaval lymph node measures 9 mm in short axis. OSSEOUS STRUCTURES: Mild multilevel degenerative changes of the spine, particularly at L5-S1 with di sc desiccation and vacuum disc phenomenon. FREE AIR: No free air is visualized. IMPRESSION: THREE-PHASE IMAGING OF THE ABDOMEN FAILS TO DEMONSTRATE A SUSPICIOUS RENAL MASS OF EITHER KIDNEY. IF OUTSIDE ULTRASOUND IS MADE AVAILABLE FOR COMPARISON AND ADDENDUM COULD BE PERFORMED. SONOGRAPHIC FIND INGS COULD HAVE BEEN ON THE BASIS OF A PSEUDOMASS OR PROMINENT COLUMN OF MEG.
== END | disposition home or self-care (01) ==
LOC: RADCTMAIN 16:14
PROVIDERS: ATTEND Surgery
DX: D30.01 Benign neoplasm of right kidney (principal); N40.1 Benign prostatic hyperplasia with lower urinary tract symptoms
CPT/HCPCS: 84153; 80048; 74170; 36415; Q9967

== ENCOUNTER 2019-07-29 09:59 | Day surgery (SDC) | payer BC ==
[2019-07-27 11:35] VITALS: BMI 36.1
[~2019-07-29 09:59] MED LIST changes: -LACTATED RINGERS 1,000 ML IV ONE; +LIDOCAINE 1% 20 ML VIAL (10MG/ML) FOR IV START INTRADERMA PRN; -LIDOCAINE 1% INJ 10MG/ML (20 ML MDV) ONE; -PROPOFOL 10 MG/ML 20 ML VIAL IV ONE; -fentaNYL (PF) 50 MCG/ML 2 ML AMP ONE
[2019-07-29 10:35] VITALS: TEMP 97.3
[2019-07-29 10:37] LABS: Glucose,Whole Blood 105 mg/dL (75-99)
[2019-07-29] MEDS ORDERED: PROPOFOL 10 MG/ML 20 ML VIAL IV ONE (10:46)
[2019-07-29] MEDS ORDERED: LIDOCAINE 1% INJ 10MG/ML (20 ML MDV) ONE (10:46)
--- NOTE | 2019-07-29 11:21 | P.PCN ---
Date of Procedure: 07/29/19 Procedure(s) Performed: Brief history: Patient is a pleasant 64-year-old white male scheduled for an elective upper endoscopy as well as colonoscopy as a part of evaluation of epigastric fullness, intermittent dysphagia to solids and rectal bleeding for the last few months duration Procedure performed: Esophagogastroduodenoscopy with biopsy Colonoscopy Preoperative diagnosis: GERD/dysphagia Intermittent rectal bleeding Anesthesia: MAC Procedure: After informed consent was obtained from the patient was brought into the endoscopy unit and IV sedation was administered by anesthesia under continuous monitoring. Initially upper endoscopy was done. The Olympus GF 160 video endoscope was inserted inserted into the mouth and esophagus intubated without any difficulty and was gradually advanced into the stomach and duodenum and carefully examined. The bulb and second part of the duodenum appeared normal. The scope was then withdrawn into the stomach adequately insufflated with air and upon careful examination the antrum had mild gastritis and biopsies were done from this area. The body, cardia and fundus appeared normal. The scope was then withdrawn into the esophagus. The GE junction was located at 40 cm to the incisors. It appeared regular with no erythema erosions or ulcerations. Rest of the esophagus appeared normal. Biopsies were done from the distal esophagus. Patient tolerated the procedure well. At this time the patient continued to remain sedation. Initial digital rectal examination was normal. Olympus CF 160 video colonoscope was then inserted into the rectum and gradually advanced to the cecum without any difficulty. Careful examination was performed as the scope was gradually being withdrawn. The prep was excellent. The cecum, ascending colon, transverse colon, descending colon, sigmoid colon and rectum appeared normal. Retroflexion was performed in the rectum and grade 2 internal hemorrhoids were noted. Patient tolerated the procedure well. Impression: 1. Upper endoscopy revealed mild antral gastritis but no evidence of esophagitis or peptic ulcer disease 2. Colonoscopy revealed grade 2 internal hemorrhoids. Recommendations: Findings of this examination were discussed with the patient as well as his family. He was advised to follow with the biopsy results. He'll be seen in office in 3 weeks. he can have a repeat screening colonoscopy in 10 years.
[2019-07-29 11:43] VITALS: BP 107/71; PULSE 67; RESP 20
== END 2019-07-29 12:20 | disposition home or self-care (01) ==
LOC: ORWHC2ENDO 09:59
PROVIDERS: ATTEND Internal Medicine Gastroenterology
DX: K29.50 Unspecified chronic gastritis without bleeding (principal); K21.0 Gastro-esophageal reflux disease with esophagitis; K64.1 Second degree hemorrhoids; K62.5 Hemorrhage of anus and rectum; R13.10 Dysphagia, unspecified; Z79.82 Long term (current) use of aspirin; Z79.899 Other long term (current) drug therapy; I25.10 Atherosclerotic heart disease of native coronary artery without angina pectoris; Z95.5 Presence of coronary angioplasty implant and graft; J44.9 Chronic obstructive pulmonary disease, unspecified; E11.9 Type 2 diabetes mellitus without complications; G83.4 Cauda equina syndrome; Z98.1 Arthrodesis status
CPT/HCPCS: 88305; 45378; 43239; J2001; J2704

== ENCOUNTER → 2019-12-16 | Outpatient (CLI) | payer BC ==
[2019-12-16 12:03] LABS: HCT 40.8 % (39.0-53.0); HGB 13.1 gm/dL (13.0-17.5); MCH 31.2 pg (25.0-35.0); MCHC 32.1 g/dL (31.0-37.0); MCV 97.3 fL (80.0-100.0); Mean Platelet Volume 7.4; Platelet Count 295 k/uL (150-450); RBC 4.19 m/uL (4.30-5.90); WBC 7.2 k/uL (3.8-10.6)
[2019-12-16 12:05] LABS: African American GFR (CKD) >90 (>60 ml/min/1.73 sqM); Anion Gap 9 mmol/L; Blood Urea Nitrogen 12 mg/dL (9-20); Carbon Dioxide 28 mmol/L (22-30); Chloride 104 mmol/L (98-107); Non-African American GFR(CKD) 88 (>60 ml/min/1.73 sqM); Potassium 4.7 mmol/L (3.5-5.1); Sodium 141 mmol/L (137-145)
== END | disposition home or self-care (01) ==
LOC: LABPAT 10:51
PROVIDERS: ATTEND Internal Medicine Interventional Cardiology
DX: Z01.818 Encounter for other preprocedural examination (principal); R94.39 Abnormal result of other cardiovascular function study
CPT/HCPCS: 36415; 80051; 82565; 84520; 85027

== ENCOUNTER 2019-12-29 06:25 | Day surgery (SDC) | payer BC ==
[2019-12-23 13:24] VITALS: BMI 36.3
[~2019-12-29 06:25] MED LIST changes: +ALPRAZolam 0.25 MG TAB PO PRN; +ALPRAZolam 0.5 MG TAB PO PRN; +ASPIRIN 325 MG TAB PO STA; +ATORVASTATIN 80 MG TAB PO STA; -LACTATED RINGERS 1,000 ML IV SCH; -LIDOCAINE 1% 20 ML VIAL (10MG/ML) FOR IV START INTRADERMA PRN; +NITROGLYCERIN SL TABS 0.4 MG TAB SUBLINGUAL PRN; +SODIUM CHLORIDE 0.9% 1,000 ML in EMPTY BAG 1 BAG IV ONE
[2019-12-29] MEDS ORDERED: SODIUM CHLORIDE 0.9% 1,000 ML IV ONE (06:55)
[2019-12-29] MEDS ORDERED: LIDOCAINE 1% INJ 10MG/ML (20 ML MDV) ONE (07:10)
[2019-12-29] MEDS ORDERED: VERAPAMIL 2.5 MG/ML 2 ML AMP ONE (07:11)
[2019-12-29] MEDS ORDERED: HEPARIN SODIUM 1,000 UN/ML (10ML VL) ONE (07:11)
[2019-12-29] MEDS ORDERED: MIDAZOLAM 2 MG/2 ML VIAL IV ONE (07:33)
[2019-12-29] MEDS: LIDOCAINE 1% INJ 10MG/ML (20 ML MDV) SQ ONE ×2 (07:39→07:51)
[2019-12-29] MEDS ORDERED: BIVALIRUDIN BOLUS 250 MG/50 ML IV ONE (08:12)
[2019-12-29] MEDS ORDERED: NITROGLYCERIN 1000MCG/10ML SYRINGE INTRAARTER ONE (08:14)
[2019-12-29] MEDS ORDERED: BIVALIRUDIN 250 MG in SODIUM CHLORIDE 0.9% 50 ML IV ONE (08:15)
[2019-12-29] MEDS ORDERED: IOPAMIDOL-370 100ML BTL INJ ONE ×2 (08:17)
[2019-12-29] MEDS ORDERED: FUROSEMIDE 10 MG/ML 4 ML VIAL ONE (08:29)
[2019-12-29] MEDS ORDERED: SODIUM CHLORIDE 0.9% 1,000 ML IV SCH (08:30)
[2019-12-29] MEDS ORDERED: FUROSEMIDE 10 MG/ML 4 ML VIAL IV ONE (08:31)
--- NOTE | 2019-12-29 11:06 | CC ---
CARDIAC CATHETERIZATION REPORT DATE OF SERVICE: 12/29/2019 PROCEDURE: Left heart catheterization and coronary angiography. PERFORMED BY: Dr. Jim Olvera. Moderate conscious sedation time was 44 minutes. Patient was administered Versed. Oxygen saturation, hemodynamics and EKG were monitored closely. CLINICAL INFORMATION: Mr. Roby Quinteros is a 64-year-old obese gentleman with history of type 2 diabetes, hypertension, hyperlipidemia, previous stenting of mid LAD, who had a positive stress test, was advised repeat cardiac catheterization. His last cardiac cath was in 2018 and at that time, the LAD was widely patent and circumflex and RCA were free of significant disease. Because of a distal anteroapical fixed defect and as well as the inferoapical inferior apical lateral fixed defect with nuno-infarct ischemia recommend coronary angiography. Risks, benefits, options, rationale explained. Patient understood all details and wished to proceed with the procedure. PROCEDURE NOTE: Under local anesthesia and strict aseptic precautions, I attempted to access from the right radial. There was a lot of spasm, I could not get good access even though had blood return, I could not advance the wire. Therefore, I switched over the right femoral approach. Under local anesthesia and strict aseptic precautions, a 6-Tajik introducer was placed. The patient had some scar tissue. I had to use the dilators of 5-Tajik caliber. Using standard Amilcar catheters, I performed coronary angiography and a same right catheter was used to check LV pressures. Initial injections of the RCA noted that there was a mid lesion of about nearly 80% very smooth. I recommended PCI and started the procedure by giving him some Angiomax and also the initial injection after passing the wire. The vessel at that time was widely patent, suggesting that the observed smooth 70%-80% narrowing was a vasospasm. I took the wire out, gave additional nitroglycerin and took some pictures. It appears that the PDA was a small caliber vessel, but long in distribution and has a mid lesion of about 60%-70%, but the distal RCA lesion which I had initially thought was significant opened up with nitroglycerin suggesting that there was a significant amount of vasospasm with the PDA 60%-70% lesion. I therefore abandoned the PCI procedure and the sheath was taken out and Angio-Seal device used to secure hemostasis and he was sent to the room in a stable condition. CARDIAC CATHETERIZATION FINDINGS: The left ventricular end-diastolic pressure was about 15 mmHg without any gradient across the aortic valve. CORONARY ANGIOGRAPHY FINDINGS: RIGHT CORONARY ARTERY: This is a dominant vessel. There was what seems to be a mid RCA after it made the curve, before bifurcation there was an eccentric smooth narrowing of about 70%-80%. This improved spontaneously by the time I started doing PCI bypassing the wire. Subsequent nitroglycerin further improved the area suggesting that there are vasospasms. The RCA is a dominant vessel. PDA has a mid lesion of about 60%- 70%, but the PDA itself appears to be a relatively small caliber vessel about 2 mm also beyond the stenosis. Beyond the stenosis. The PLV branch is free of significant disease. LEFT MAIN CORONARY ARTERY: Short patent disease-free vessel that bifurcates into LAD and circumflex. LEFT ANTERIOR DESCENDING CORONARY ARTERY: Good caliber vessel extends along the anterior wall, gives off septal and diagonal branches. Midportion where there was a previous stent is widely patent with brisk flow, beyond the stented segment caliber is decent as the blood flow is good. No evidence of any significant obstruction. The diagonal branches and septal branches have minor irregularities. LEFT POSTERIOR CIRCUMFLEX CORONARY ARTERY: Nondominant vessel gives off 2 good-sized obtuse marginals and distal posterolateral branch has minor irregularities, no significant disease. Left ventriculogram was not performed. FINAL IMPRESSION: This patient has significant spasm of mid RCA such that I started to perform PCI, passed a wire and this and then the vessel caliber improved after nitroglycerin. No PCI was performed. There is a PDA lesion involving the midportion after which the caliber becomes small. This is about 60%-70%/ PDA branch of RCA lesion. The previously stented LAD is widely patent. Circumflex has no significant disease. Filling pressures are mildly elevated and no gradient across the aortic valve. RECOMMENDATIONS: Continued medical therapy with the addition of nitrates. This will help improve a left ventricular end-diastolic pressure and also address the question of vasospasms. I will see the patient in the office and make further recommendations. Risk factor modification issues discussed. MMODL / IJN: [id number] /
[2019-12-30 15:35] LABS: Glucose,Whole Blood 140 mg/dL (75-99)
[2019-12-31 08:15] VITALS: BP 128/79; PULSE 68; RESP 18; TEMP 97.8
== END 2019-12-29 13:50 | disposition home or self-care (01) ==
LOC: CATHCVL 06:25
PROVIDERS: ATTEND Internal Medicine Interventional Cardiology
DX: I25.110 Atherosclerotic heart disease of native coronary artery with unstable angina pectoris (principal); I10 Essential (primary) hypertension; E11.9 Type 2 diabetes mellitus without complications; E78.00 Pure hypercholesterolemia, unspecified; J44.9 Chronic obstructive pulmonary disease, unspecified; G47.33 Obstructive sleep apnea (adult) (pediatric); E66.9 Obesity, unspecified; Z95.5 Presence of coronary angioplasty implant and graft; Z79.82 Long term (current) use of aspirin; Z79.84 Long term (current) use of oral hypoglycemic drugs; Z79.899 Other long term (current) drug therapy; Z87.891 Personal history of nicotine dependence; Z68.37 Body mass index [BMI] 37.0-37.9, adult
CPT/HCPCS: 93458; C1760; C1887; C1769 ×4; C1894 ×2; J2250; J1940; J2001; J0583; Q9967

== ENCOUNTER 2020-02-28 13:00 | Inpatient (IN) | payer BC ==
[2020-02-28] MEDS ORDERED: PANTOPRAZOLE 40 MG/10 ML VIAL IVP STA (13:46)
[2020-02-28] MEDS ORDERED: SODIUM CHLORIDE 0.9% 1,000 ML IV STA (13:46)
--- NOTE | 2020-02-28 13:48 | ED ---
General Adult HPI - General Chief complaint: GI Bleed Stated complaint: Abd pain, bowel issues Time Seen by Provider: 02/28/20 13:25 Source: patient, family, RN notes reviewed Mode of arrival: ambulatory Limitations: no limitations - History of Present Illness Initial comments: Patient is a pleasant 64-year-old male presenting to the emergency Department with complaints of abdominal discomfort and rectal bleeding. Onset of symptoms was 2 days ago. Patient has a history of hemorrhoids previously however this feels different than that. Patient is having thick maroon stool. Patient is having constant lower abdominal cramping. No nausea vomiting. No fevers. No history of similar symptoms previously. - Related Data Home Medications Medication Instructions Recorded Confirmed Aspirin 81 mg PO BID 11/11/14 12/29/19 Atorvastatin [Lipitor] 20 mg PO HS 02/12/17 12/29/19 Metoprolol Tartrate [Lopressor] 25 mg PO BID 02/12/17 12/29/19 lisinopriL [Zestril] 5 mg PO QAM 02/12/17 12/29/19 metFORMIN HCL [Glucophage] 500 mg PO BID 02/12/17 12/29/19 Albuterol Inhaler (Mhu) [Ventolin 1 - 2 puff INHALATION RT-Q6H PRN 10/30/17 12/23/19 Hfa Inhaler] Famotidine 40 mg PO DAILY 10/30/17 12/29/19 Gaviscon (Unknown Dose) 1 dose PO HS 07/27/19 12/29/19 L.acidoph,Paracasei, B.lactis 1 each PO DAILY 07/27/19 12/29/19 [Probiotic] Miralax (Unknown Dose) 1 dose PO DAILY PRN 07/27/19 12/23/19 Tiotropium 18 Mcg/Puff [Spiriva] 2 puff INHALATION DAILY PRN 07/27/19 12/23/19 Cholecalciferol (Vitamin D3) 50 mcg PO BID 12/23/19 12/29/19 [Vitamin D3] Allergies Allergy/AdvReac Type Severity Reaction Status Date / Time No Known Allergies Allergy Verified 02/28/20 13:19 Review of Systems ROS Statement: Those systems with pertinent positive or pertinent negative responses have been documented in the HPI. ROS Other: All systems not noted in ROS Statement are negative. Constitutional: Denies: fever Eyes: Denies: eye pain ENT: Denies: throat pain Respiratory: Denies: cough Cardiovascular: Denies: chest pain Endocrine: Denies: fatigue Gastrointestinal: Reports: as per HPI, abdominal pain Genitourinary: Denies: dysuria Musculoskeletal: Denies: back pain Skin: Denies: rash Neurological: Denies: weakness Past Medical History Past Medical History: Coronary Artery Disease (CAD), COPD, Diabetes Mellitus, GERD/Reflux, Hyperlipidemia, Hypertension, Myocardial Infarction ([place]), Sleep Apnea/CPAP/BIPAP Additional Past Medical History / Comment(s): caudia equina syndrome - states partial paralysis from waist down- has minimal feeling from waist down, problems with bladder and bowel. (past hx of self cath) hemorrhoids, aspirates food occ. causing persistent sore throat & hoarseness.,, uses c-pap machine, SOB., states constipation & diarrhea & blood in stool., states he feels full after eating small amt, nausea. Last Myocardial Infarction Date:: unknown History of Any Multi-Drug Resistant Organisms: None Reported Past Surgical History: Heart Catheterization, Heart Catheterization With Stent Additional Past Surgical History / Comment(s): Cervical Fusion; Lower Back surgery; Hemorrhoidectomy x 3-banding. Right eye surgery, cystoscopy, heart s tent x1 Past Anesthesia/Blood Transfusion Reactions: No Reported Reaction Additional Past Anesthesia/Blood Transfusion Reaction / Comment(s): . Date of Last Stent Placement:: 2007 Past Psychological History: Anxiety, Depression Smoking Status: Former smoker Past Alcohol Use History: Rare Past Drug Use History: None Reported - Past Family History Father Family Medical History: Cancer Son(s) Family Medical History: Cancer Mother Family Medical History: Neurologic Disorder Additional Family Medical History / Comment(s): parkinsons General Exam Limitations: no limitations General appearance: alert, in no apparent distress Head exam: Present: normocephalic Eye exam: Present: normal appearance Neck exam: Present: normal inspection Respiratory exam: Present: normal lung sounds bilaterally Cardiovascular Exam: Present: regular rate, normal rhythm GI/Abdominal exam: Present: soft, tenderness (Mild tenderness lower abdomen). Absent: distended Rectal exam: Present: bloody stool Extremities exam: Present: normal inspection Neurological exam: Present: alert Psychiatric exam: Present: normal affect, normal mood Skin exam: Present: normal color Course Vital Signs 09/07/20 13:15 Temperature 98.0 F Pulse Rate 125 H Respiratory 18 Rate Blood Pressure 152/95 O2 Sat by Pulse 95 Oximetry - Reevaluation(s) Reevaluation #1: 02/28/20 15:03 Secondary to tachycardia and leukocytosis there is concern for possible infectious colitis with sepsis. Patient will be covered with antibiotics. Blood culture and lactic acid will be ordered. Diagnosed at 1500. Medical Decision Making - Medical Decision Making Patient reevaluated and updated. Case was discussed in detail with Dr. Mosley, who will admit covered for Dr. Singh. - Lab Data Result diagrams: 02/28/20 13:59 02/28/20 13:59 Lab Results 02/28/20 02/28/20 02/28/20 Range/Units 13:59 13:59 13:59 WBC 16.9 H (3.8-10.6) k/uL RBC 5.22 (4.30-5.90) m/uL Hgb 16.1 (13.0-17.5) gm/dL Hct 48.6 (39.0-53.0) % MCV 93.1 (80.0-100.0) fL MCH 30.9 (25.0-35.0) pg MCHC 33.2 (31.0-37.0) g/dL RDW 12.7 (11.5-15.5) % Plt Count 318 (150-450) k/uL Neutrophils % 76 % Lymphocytes % 14 % Monocytes % 7 % Eosinophils % 2 % Basophils % 0 % Neutrophils # 12.9 H (1.3-7.7) k/uL Lymphocytes # 2.3 (1.0-4.8) k/uL Monocytes # 1.1 H (0-1.0) k/uL Eosinophils # 0.3 (0-0.7) k/uL Basophils # 0.1 (0-0.2) k/uL PT 10.4 (9.0-12.0) sec INR 1.0 (<1.2) APTT 25.1 (22.0-30.0) sec Sodium (137-145) mmol/L Potassium (3.5-5.1) mmol/L Chloride (98-107) mmol/L Carbon Dioxide (22-30) mmol/L Anion Gap mmol/L BUN (9-20) mg/dL Creatinine (0.66-1.25) mg/dL Est GFR (CKD-EPI)AfAm (>60 ml/min/1.73 sqM) Est GFR (CKD-EPI)NonAf (>60 ml/min/1.73 sqM) Glucose (74-99) mg/dL Calcium (8.4-10.2) mg/dL Total Bilirubin (0.2-1.3) mg/dL AST (17-59) U/L ALT (4-49) U/L Alkaline Phosphatase (38-126) U/L Total Protein (6.3-8.2) g/dL Albumin (3.5-5.0) g/dL Stool Occult Blood Positive (Negative) 02/28/20 Range/Units 13:59 WBC (3.8-10.6) k/uL RBC (4.30-5.90) m/uL Hgb (13.0-17.5) gm/dL Hct (39.0-53.0) % MCV (80.0-100.0) fL MCH (25.0-35.0) pg MCHC (31.0-37.0) g/dL RDW (11.5-15.5) % Plt Count (150-450) k/uL Neutrophils % % Lymphocytes % % Monocytes % % Eosinophils % % Basophils % % Neutrophils # (1.3-7.7) k/uL Lymphocytes # (1.0-4.8) k/uL Monocytes # (0-1.0) k/uL Eosinophils # (0-0.7) k/uL Basophils # (0-0.2) k/uL PT (9.0-12.0) sec INR (<1.2) APTT (22.0-30.0) sec Sodium 138 (137-145) mmol/L Potassium 4.4 (3.5-5.1) mmol/L Chloride 104 (98-107) mmol/L Carbon Dioxide 22 (22-30) mmol/L Anion Gap 12 mmol/L BUN 14 (9-20) mg/dL Creatinine 0.87 (0.66-1.25) mg/dL Est GFR (CKD-EPI)AfAm >90 (>60 ml/min/1.73 sqM) Est GFR (CKD-EPI)NonAf >90 (>60 ml/min/1.73 sqM) Glucose 143 H (74-99) mg/dL Calcium 9.3 (8.4-10.2) mg/dL Total Bilirubin 0.9 (0.2-1.3) mg/dL AST 35 (17-59) U/L ALT 22 (4-49) U/L Alkaline Phosphatase 85 (38-126) U/L Total Protein 7.8 (6.3-8.2) g/dL Albumin 4.6 (3.5-5.0) g/dL Stool Occult Blood (Negative) - Radiology Data Radiology results: report reviewed (Computed tomography scan of the abdomen pelvis concerning for long segment of colitis.) Critical Care Time Critical Care Time: Yes Total Critical Care Time: 32 Disposition Clinical Impression: Lower gastrointestinal hemorrhage, Colitis, Sepsis Disposition: ADMITTED IP TO THIS HOSP Is patient prescribed a controlled substance at d/c from ED?: No Referrals: Antoni Singh MD [Primary Care Provider] - 1-2 days Decision Time: 14:59
[2020-02-28 14:09] LABS: Basophils # (A) 0.1 k/uL (0-0.2); Basophils % (A) 0 %; Eosinophils # (A) 0.3 k/uL (0-0.7); Eosinophils % (A) 2 %; HCT 48.6 % (39.0-53.0); HGB 16.1 gm/dL (13.0-17.5); Lymphocytes # (A) 2.3 k/uL (1.0-4.8); Lymphocytes % (A) 14 %; MCH 30.9 pg (25.0-35.0); MCHC 33.2 g/dL (31.0-37.0); MCV 93.1 fL (80.0-100.0); Mean Platelet Volume 6.5; Monocytes # (A) 1.1 k/uL (0-1.0); Monocytes % (A) 7 %; Neutrophils # (A) 12.9 k/uL (1.3-7.7); Neutrophils % (A) 76 %; Platelet Count 318 k/uL (150-450); RBC 5.22 m/uL (4.30-5.90); RDW 12.7 % (11.5-15.5); WBC 16.9 k/uL (3.8-10.6)
[2020-02-28 14:17] LABS: ALT 22 U/L (4-49); AST 35 U/L (17-59); African American GFR (CKD) >90 (>60 ml/min/1.73 sqM); Albumin 4.6 g/dL (3.5-5.0); Alkaline Phosphatase 85 U/L (38-126); Anion Gap 12 mmol/L; Blood Urea Nitrogen 14 mg/dL (9-20); Calcium 9.3 mg/dL (8.4-10.2); Carbon Dioxide 22 mmol/L (22-30); Chloride 104 mmol/L (98-107); Glucose 143 mg/dL (74-99); Non-African American GFR(CKD) >90 (>60 ml/min/1.73 sqM); Potassium 4.4 mmol/L (3.5-5.1); Sodium 138 mmol/L (137-145); Total Bilirubin 0.9 mg/dL (0.2-1.3); Total Protein 7.8 g/dL (6.3-8.2)
[2020-02-28 14:26] LABS: Partial Thromboplastin Time 25.1 sec (22.0-30.0); Prothrombin Time 10.4 sec (9.0-12.0)
[2020-02-28] MEDS ORDERED: HYDROmorphone 0.5 MG/0.5 ML SYRINGE IVP PRN (14:59)
[2020-02-28] MEDS ORDERED: ONDANSETRON 4 MG/2 ML VIAL IVP PRN (14:59)
[2020-02-28] MEDS ORDERED: NALOXONE 0.4 MG/ML 1 ML VIAL IV PRN (14:59)
--- NOTE | 2020-02-28 15:02 | CT ---
EXAMINATION TYPE: CT abdomen pelvis w con DATE OF EXAM: 02/28/2020 COMPARISON: 02/19/2019 HISTORY: 64-year-old male with abdominal pain, bowel issues TECHNIQUE: Contiguous axial scanning of the abdomen and pelvis following administration of 100 ml Iso peyton 300 IV contrast. Delayed images through the kidneys and coronal/sagittal reconstructions perform ed. CT DLP: 1678.6 mGycm Automated exposure control for dose reduction was used. FINDINGS: Heart normal size without pericardial effusion. Strandy atelectasis or scarring at the lung bases wit hout pleural effusion. Borderline ectasia lower descending thoracic aorta 2.5 cm. No focal liver lesion or biliary ductal dilatation. Portal venous system is patent. Gallbladder, adrenal glands, kidneys, spleen, and pancreas appear within normal limits. Prominent but not enlarged 1.1 cm portacaval lymph node. Borderline sized 9 mm gastrohepatic ligament lymph node. Otherwise, no mesenteric or retroperitoneal lymphadenopathy. Mild atherosclerotic calcifications infrarenal abdominal aorta and common iliac arteries. Normal appendix. No significant stool burden. There is long segment mild to moderate circumferential wall thickening involving the descending colon down to the mid sigmoid colon. Mild to moderate surrounding fat stranding and some tracking of fluid edema. No dilated small bowel or free air. Bladder partially distended. Prostate gland measures 3.8 cm wide. Mild pelvic free fluid collecting f rom the inflammation higher up. No pelvic lymphadenopathy. Bones: Mild degenerative change at the right greater than left hips. Advanced degenerative disc disea se L5-S1 with facet arthropathy. IMPRESSION: 1. LONG SEGMENT MODERATE ACUTE INFECTIOUS OR INFLAMMATORY COLITIS INVOLVING THE DESCENDING COLON DOWN THROUGH THE MID SIGMOID COLON. NO ABSCESS OR FREE AIR. 2. REACTIVE CONFLUENT PERICOLONIC EDEMA AND MILD PELVIC FREE FLUID.
[2020-02-28] MEDS: HYDROmorphone 1 MG/ML 1 ML SYRINGE IVP PRN ×2 (15:15→20:16)
[2020-02-28] MEDS: SODIUM CHLORIDE 0.9% 1,000 ML IV SCH (15:18)
[2020-02-28] MEDS: PIPERACILLIN-TAZOBACTAM 3.375 GM in SODIUM CHLORIDE 0.9% 100 ML IVPB SCH ×2 (17:25→23:45)
[2020-02-28] MEDS ORDERED: ALBUTEROL NEBULIZED 2.5 MG/3 ML INHALATION PRN (18:34)
[2020-02-28] MEDS ORDERED: IPRATROPIUM 0.5 MG/2.5 ML NEBU INHALATION PRN (18:34)
[2020-02-28] MEDS ORDERED: LACTULOSE 20 GM/30 ML CUP PO PRN (18:35)
[2020-02-28] MEDS ORDERED: MELATONIN 3 MG TABLET PO PRN (18:35)
[2020-02-28] MEDS ORDERED: MAG HYDROX/AL HYDROX/SIMETH 30 ML CUP PO PRN (18:35)
[2020-02-28] MEDS ORDERED: MAGNESIUM HYDROXIDE 2,400 MG/10 ML CUP PO PRN (18:35)
[2020-02-28] MEDS ORDERED: CALCIUM CARBONATE 500 MG CHEWABLE PO PRN (18:35)
[2020-02-28] MEDS: ATORVASTATIN 20 MG TAB PO SCH (20:16)
[2020-02-28] MEDS: METOPROLOL TARTRATE 25 MG TAB PO SCH (20:16)
[2020-02-28 20:28] LABS: Glucose,Whole Blood 168 mg/dL (75-99)
--- NOTE | 2020-02-28 21:18 | P.HPIM ---
History of Present Illness H&P Date: 02/28/20 Chief Complaint: abdominal pain History of presenting complaint: This is a pleasant 64-year-old patient of Dr. Singh. Chronic stable medical conditions include coronary artery with stent, COPD, diabetes, GERD, hypertension, hyperlipidemia, SLEEP apnea uses CPAP, cauda equina syndrome with decreased sensation from the waist down below and history of bladder or bowel involvement in the past, hemorrhoids. On Friday started having increasing lower abdominal pain and progressive got worse. Starting having maroon-colored stools. Today during the fever and chills. Admitted for the same. In July of this year patient had EGD that showed mild gastritis and a colonoscopy that showed grade 2 internal hemorrhoids. Computed tomography scan of the ear did show evidence of colitis. Review of systems: GEN.: Tired fever or chills EYES: None HEENT: None NECK: None RESPIRATORY: None CARDIOVASCULAR: None GASTROINTESTINAL: As above GENITOURINARY: None MUSCULOSKELETAL: Joint pains LYMPHATICS: None HEMATOLOGICAL: None PSYCHIATRY: None NEUROLOGICAL: None. Past medical history to include: Coronary artery disease with stent-recently had a cardiac catheterization found to have coronary spasm. Put on nitrates., COPD, diabetes, GERD, hypertension, hyperlipidemia, obstructive sleep apnea uses CPAP, cauda equina syndrome, internal hemorrhoids anxiety depression Social history: Patient smoked a pack a day for close to 30 years stopped in 2012. Alcohol rarely. . Physical examination: VITAL SIGNS: 98, 125, 18, 133/82, 94% on room air GENERAL: BMI 36.9, sitting up in bed, tired appearing. EYES: Pupils equal. Conjunctiva normal. HEENT: External appearance of nose and ears normal, oral cavity grossly normal. NECK: JVD not raised; masses not palpable. HEART: First and second heart sounds are normal; no edema. LUNGS: Respiratory rate normal; decreased breath sounds. ABDOMEN: Soft, lower abdominal tenderness, no guarding rigidity, liver spleen n ot palpable, no masses palpable. PSYCH: [Alert and oriented x3; mood and affect anxious l. NEUROLOGICAL: Cranial nerves grossly intact; no facial asymmetry, power and sensation grossly intact. LYMPHATICS: No lymph nodes palpable in the axilla and neck INVESTIGATIONS, reviewed in the clinical context: White count 16.9 hemoglobin 16.1 platelets 318 potassium 4.4 creatinine 0.87 Computed tomography scan of the abdomen pelvis-evidence of colitis involving the descending colon down through the mid sigmoid. No evidence of abscess or free air. Assessment: -Likely acute ischemic colitis off descending colon. Infection component cannot be ruled out. -1 artery disease history of stent -Coronary spasm diagnosed per cardiac catheterization recently -COPD in an ex-smoker -Diabetes mellitus type 2 -GERD -Hyperlipidemia -Essential hypertension -Cauda equina syndrome -Internal hemorrhoids -Obstructive sleep apnea uses CPAP machine Plan: Patient started IV Zosyn. Also had ID Flagyl. Home medications resumed. Dilaudid for pain control. Care was discussed with the patient. Questions were answered. IV fluids. Patient needs at least 2 nights of stay in the hospital. Past Medical History Past Medical History: Coronary Artery Disease (CAD), COPD, Diabetes Mellitus, GERD/Reflux, Hyperlipidemia, Hypertension, Myocardial Infarction ([place]), Sleep Apnea/CPAP/BIPAP Additional Past Medical History / Comment(s): caudia equina syndrome - states partial paralysis from waist down- has minimal feeling from waist down, problems with bladder and bowel. (past hx of self cath) hemorrhoids, aspirates food occ. causing persistent sore throat & hoarseness.,, uses c-pap machine, SOB., states constipation & diarrhea & blood in stool., states he feels full after eating small amt, nausea. Last Myocardial Infarction Date:: unknown History of Any Multi-Drug Resistant Organisms: None Reported Past Surgical History: Heart Catheterization, Heart Catheterization With Stent Additional Past Surgical History / Comment(s): Cervical Fusion; Lower Back surgery; Hemorrhoidectomy x 3-banding. Right eye surgery, cystoscopy, heart stent x1 Past Anesthesia/Blood Transfusion Reactions: No Reported Reaction Additional Past Anesthesia/Blood Transfusion Reaction / Comment(s): . Date of Last Stent Placement:: 2007 Past Psychological History: Anxiety, Depression Smoking Status: Former smoker Past Alcohol Use History: Rare Additional Past Alcohol Use History / Comment(s): quit smoking 2012, smoked approx 30yrs ,1ppd Past Drug Use History: None Reported - Past Family History Father Family Medical History: Cancer Son(s) Family Medical History: Cancer Mother Family Medical History: Neurologic Disorder Additional Family Medical History / Comment(s): parkinsons Medications and Allergies Home Medications Medication Instructions Recorded Confirmed Type Aspirin 81 mg PO BID 11/11/14 02/28/20 History Atorvastatin [Lipitor] 20 mg PO HS 02/12/17 02/28/20 History Metoprolol Tartrate [Lopressor] 25 mg PO BID 02/12/17 02/28/20 History lisinopriL [Zestril] 5 mg PO QAM 02/12/17 02/28/20 History metFORMIN HCL [Glucophage] 500 mg PO BID 02/12/17 02/28/20 History Famotidine 40 mg PO DAILY 10/30/17 02/28/20 History Tiotropium 18 Mcg/Puff [Spiriva] 2 puff INHALATION DAILY PRN 07/27/19 02/28/20 History Cholecalciferol (Vitamin D3) 50 mcg PO BID 12/23/19 02/28/20 History [Vitamin D3] Acetaminophen Tab [Tylenol] 500 mg PO DAILY PRN 02/28/20 02/28/20 History Albuterol Sulfate [Ventolin HFA] 2 puff INHALATION RT-QID PRN 02/28/20 02/28/20 History Ipratropium-Albuterol Nebulize 3 ml INHALATION RT-DAILY 02/28/20 02/28/20 Hist ory [Duoneb 0.5 mg-3 mg/3 ml Soln] Isosorbide Mononitrate ER [Imdur] 45 mg PO QAM 02/28/20 02/28/20 History bisacodyL [Dulcolax] 5 mg PO DAILY PRN 02/28/20 02/28/20 History polyethylene glycoL 3350 [Miralax] 17 gm PO DAILY PRN 02/28/20 02/28/20 History Allergies Allergy/AdvReac Type Severity Reaction Status Date / Time No Known Allergies Allergy Verified 02/28/20 17:05 Physical Exam Vitals: Vital Signs Temp Pulse Resp BP Pulse Ox 02/28/20 15:10 120 H 18 136/84 95 02/28/20 15:00 110 H 16 96 02/28/20 14:30 113 H 16 136/107 95 02/28/20 14:00 115 H 16 133/82 94 L 02/28/20 13:54 108 H 16 95 02/28/20 13:15 98.0 F 125 H 18 152/95 95 Intake and Output 02/28/20 02/28/20 02/28/20 06:59 14:59 22:59 Other: Voiding Method Urinal Weight 113.398 kg 113.398 kg Results CBC & Chem 7: 02/28/20 13:59 02/28/20 13:59 Labs: Abnormal Lab Results - Last 24 Hours (Table) 02/28/20 02/28/20 02/28/20 Range/Units 13:59 13:59 20:26 WBC 16.9 H (3.8-10.6) k/uL Neutrophils # 12.9 H (1.3-7.7) k/uL Monocytes # 1.1 H (0-1.0) k/uL Glucose 143 H (74-99) mg/dL POC Glucose (mg/dL) 168 H (75-99) mg/dL Thrombosis Risk Factor Assmnt - Choose All That Apply Each Risk Factor Represents 2 Points: Age 61-74 years Thrombosis Risk Factor Assessment Total Risk Factor Score: 2 Thrombosis Risk Factor Assessment Level: Low Risk
[2020-02-28] MEDS: metroNIDAZOLE-NS PMX 500 MG in SALINE 1 100ML.BAG IVPB SCH (22:07)
[2020-02-29] MEDS: SODIUM CHLORIDE 0.9% 1,000 ML IV SCH ×2 (04:43→17:19)
[2020-02-29] MEDS: metroNIDAZOLE-NS PMX 500 MG in SALINE 1 100ML.BAG IVPB SCH ×2 (04:57→10:11)
[2020-02-29 07:03] LABS: Glucose,Whole Blood 152 mg/dL (75-99)
[2020-02-29 07:37] LABS: Basophils % (A) 0 %; Eosinophils # (A) 0.5 k/uL (0-0.7); Eosinophils % (A) 4 %; HCT 43.6 % (39.0-53.0); HGB 13.9 gm/dL (13.0-17.5); Lymphocytes # (A) 2.1 k/uL (1.0-4.8); Lymphocytes % (A) 17 %; MCH 30.6 pg (25.0-35.0); MCHC 31.9 g/dL (31.0-37.0); MCV 95.9 fL (80.0-100.0); Mean Platelet Volume 6.6; Monocytes % (A) 8 %; Neutrophils # (A) 8.8 k/uL (1.3-7.7); Neutrophils % (A) 70 %; Platelet Count 294 k/uL (150-450); RBC 4.55 m/uL (4.30-5.90); RDW 12.7 % (11.5-15.5); WBC 12.6 k/uL (3.8-10.6)
[2020-02-29] MEDS: METOPROLOL TARTRATE 25 MG TAB PO SCH ×2 (10:12→20:46)
[2020-02-29] MEDS: PANTOPRAZOLE 40 MG/10 ML VIAL IV SCH (10:13)
[2020-02-29] MEDS: ISOSORBIDE MONONITRATE ER 30 MG TAB.ER.24H PO SCH (10:13)
[2020-02-29] MEDS: lisinopriL 5 MG TAB PO SCH (10:13)
[2020-02-29] MEDS: ACETAMINOPHEN TAB 325 MG TAB PO PRN ×2 (10:21→17:40)
[2020-02-29 11:01] LABS: Glucose,Whole Blood 141 mg/dL (75-99)
[2020-02-29] MEDS: PIPERACILLIN-TAZOBACTAM 3.375 GM in SODIUM CHLORIDE 0.9% 100 ML IVPB SCH ×2 (11:14→16:58)
--- NOTE | 2020-02-29 14:44 | P.PN ---
Subjective Progress Note Date: 02/29/20 Principal diagnosis: History of presenting complaint: This is a pleasant 64-year-old patient of Dr. Singh. Chronic stable medical conditions include coronary artery with stent, COPD, diabetes, GERD, hypertension, hyperlipidemia, SLEEP apnea uses CPAP, cauda equina syndrome with decreased sensation from the waist down below and history of bladder or bowel involvement in the past, hemorrhoids. On Friday started having increasing lower abdominal pain and progressive got worse. Starting having maroon-colored stools. Today during the fever and chills. Admitted for the same. In July of this year patient had EGD that showed mild gastritis and a colonoscopy that showed grade 2 internal hemorrhoids. Computed tomography scan of the ear did show evidence of colitis. 02/29/2020 Patient is seen and evaluated and follow-up and continues to have some abdominal discomfort although states is slightly improved from yesterday. Patient has not had another bowel movement. Patient continues to have intermittent nausea with no vomiting noted. Patient currently maintained on IV antibiotics in the form of Zosyn along with Flagyl and will continue at this time. GI consulted for possible colitis as noted on CT and currently pending at this time. Patient is maintained on clear liquids. Patient has a history of cauda equina syndrome and self assists for bladder and bowel evacuation. White blood count trending down at 12.6 and hemoglobin is stable at 13.9 with no active bleeding noted. Patient does have a history of diabetes mellitus and will continue to monitor blood sugars closely and add sliding scale. Review of systems: Constitutional: No reports of fatigue, fever, or chills Cardiovascular: No reports of chest pain or palpitations Respiratory: No reports of shortness of breath or cough GI: Reports intermittent nausea, no reports of vomiting, or diarrhea : No reports of dysuria or retention Neurovascular: No reports of weakness or numbness All medications have been reviewed Objective - Vital Signs Vital signs: Vital Signs Temp 98.5 F 02/29/20 12:00 Pulse 82 02/29/20 12:00 Resp 20 02/29/20 12:00 BP 118/82 02/29/20 12:00 Pulse Ox 94 L 02/29/20 12:00 Intake & Output 02/28/20 02/29/20 02/29/20 18:59 06:59 18:59 Weight 113.398 kg Other: Voiding Method Urinal Urinal Urinal # Voids 2 # Bowel Movements 0 - Exam GENERAL: BMI 36.9, sitting up in bed, awake, alert and oriented 3, well-devel oped and well-nourished, obese. EYES: Pupils equal. Conjunctiva normal. HEENT: External appearance of nose and ears normal, oral cavity grossly normal. NECK: JVD not raised; masses not palpable. HEART: S1, S2 are present LUNGS: Diminished breath sounds bilaterally otherwise clear to auscultation with no wheezing or rhonchi noted. ABDOMEN: Soft, bowel sounds present, lower abdominal tenderness noted on palpation, no guarding rigidity, no masses palpable. PSYCH: Alert and oriented x3; non-suicidal, cooperative NEUROLOGICAL: Cranial nerves grossly intact; no facial asymmetry, power and sensation grossly intact. LYMPHATICS: No lymph nodes palpable in the axilla and neck - Labs CBC & Chem 7: 02/29/20 06:30 02/28/20 13:59 Labs: Abnormal Lab Results - Last 24 Hours (Table) 02/28/20 02/28/20 02/28/20 Range/Units 13:59 13:59 20:26 WBC 16.9 H (3.8-10.6) k/uL Neutrophils # 12.9 H (1.3-7.7) k/uL Monocytes # 1.1 H (0-1.0) k/uL Glucose 143 H (74-99) mg/dL POC Glucose (mg/dL) 168 H (75-99) mg/dL 02/29/20 02/29/20 02/29/20 Range/Units 06:30 07:02 10:59 WBC 12.6 H (3.8-10.6) k/uL Neutrophils # 8.8 H (1.3-7.7) k/uL Monocytes # (0-1.0) k/uL Glucose (74-99) mg/dL POC Glucose (mg/dL) 152 H 141 H (75-99) mg/dL Assessment and Plan Assessment: Assessment: -Likely acute ischemic colitis off descending colon. Infection component cannot be ruled out. -coronary artery disease with history of stent -Coronary spasm diagnosed per cardiac catheterization recently -COPD in an ex-smoker, not in acute exacerbation -Diabetes mellitus type 2 -GERD -Hyperlipidemia -Essential hypertension -Cauda equina syndrome -Internal hemorrhoids -Obstructive sleep apnea uses CPAP machine Plan: Continue current medications, management, and symptomatic treatment. Will initiate sliding scale and monitor blood sugars closely. Patient is maintained on IV antibiotics in the form of Zosyn and Flagyl and will continue at this time. GI consulted and currently pending. Further recommendations to follow. Will repeat a.m. labs.
[2020-02-29] MEDS: INSULIN ASPART (NovoLOG) 100 UNIT/ML VIAL SQ SCH ×2 (17:21→20:43)
[2020-02-29 17:23] LABS: Glucose,Whole Blood 122 mg/dL (75-99)
[2020-02-29 20:44] LABS: Glucose,Whole Blood 102 mg/dL (75-99)
[2020-02-29] MEDS: ATORVASTATIN 20 MG TAB PO SCH (20:46)
[2020-03-01] MEDS: PIPERACILLIN-TAZOBACTAM 3.375 GM in SODIUM CHLORIDE 0.9% 100 ML IVPB SCH ×2 (00:45→09:09)
[2020-03-01] MEDS: ACETAMINOPHEN TAB 325 MG TAB PO PRN ×2 (01:51→12:13)
[2020-03-01 06:46] LABS: Glucose,Whole Blood 129 mg/dL (75-99)
[2020-03-01] MEDS: INSULIN ASPART (NovoLOG) 100 UNIT/ML VIAL SQ SCH ×2 (08:19→11:29)
[2020-03-01] MEDS: METOPROLOL TARTRATE 25 MG TAB PO SCH (09:09)
[2020-03-01] MEDS: lisinopriL 5 MG TAB PO SCH (09:09)
[2020-03-01] MEDS: ISOSORBIDE MONONITRATE ER 30 MG TAB.ER.24H PO SCH (09:09)
[2020-03-01] MEDS: PANTOPRAZOLE 40 MG/10 ML VIAL IV SCH (09:09)
[2020-03-01] MEDS: SODIUM CHLORIDE 0.9% 1,000 ML IV SCH (09:10)
--- NOTE | 2020-03-01 10:21 | P.CONS ---
History of Present Illness - Reason for Consult Consult date: 02/29/20 Colitis Requesting physician: Antonio Mosley - Chief Complaint Abdominal pain, blood per rectum - History of Present Illness 64-year-old male with multiple medical comorbidities including coronary artery disease with prior stent placement, hypertension, hyperlipidemia, ARTURO, cauda equina syndrome, COPD and diabetes mellitus who presented to the hospital with complaints of abdominal pain and blood per rectum. The patient hasdecreased sensation below the waist due to above-mentioned issues with his mind. He reports developing lower abdominal pain prior to presentation. The pain was in the lower abdomen and described as sharp and cramping in nature. Subsequently the patient noted some maroon-colored stool. He continues to report some vague lower abdominal pain. He did previously undergo EGD and colonoscopy in 07/2019 with findings of mild gastritis andinternal hemorrhoids. No prior episodes of GI bleeding. The patient had laboratory evaluation on presentation significant for WBC 12.6, hemoglobin 13.4, platelet count 299,000 with computed tomography scan of the abdomen showing evidence of left colonic inflammation consistent with colitis. Review of Systems REVIEW OF SYSTEMS: CONSTITUTIONAL: Denies any fevers, chills, weight change or fatigue. CARDIOVASCULAR: Denies any chest pain, palpitations high or low blood pressures RESPIRATORY: Denies any shortness of breath, hemoptysis or cough. GENITOURINARY: No dysuria or hematuria. MUSCULOSKELETAL: No weakness reported. SKIN: Denies any new rashes or lesions, jaundice or pallor. PSYCHIATRIC: Denies any depression or anxiety. NEUROLOGY: Denies headache, denies any new focal deficits, Causda equina syndrome. EARS/NOSE/THROAT: No recent hearing change, congestion, nasal discharge or sore throat. EYES: No pain in eyes, discharge or change in vision. GASTROINTESTINAL: As per HPI. Past Medical History Past Medical History: Coronary Artery Disease (CAD), COPD, Diabetes Mellitus, GERD/Reflux, Hyperlipidemia, Hypertension, Myocardial Infarction ([place]), Sleep Apnea/CPAP/BIPAP Additional Past Medical History / Comment(s): caudia equina syndrome - states partial paralysis from waist down- has minimal feeling from waist down, problems with bladder and bowel. (past hx of self cath) hemorrhoids, aspirates food occ. causing persistent sore throat & hoarseness.,, uses c-pap machine, SOB., states constipation & diarrhea & blood in stool., states he feels full after eating small amt, nausea. Last Myocardial Infarction Date:: unknown History of Any Multi-Drug Resistant Organisms: None Reported Past Surgical History: Heart Catheterization, Heart Catheterization With Stent Additional Past Surgical History / Comment(s): Cervical Fusion; Lower Back surgery; Hemorrhoidectomy x 3-banding. Right eye surgery, cystoscopy, heart stent x1 Past Anesthesia/Blood Transfusion Reactions: No Reported Reaction Additional Past Anesthesia/Blood Transfusion Reaction / Comm: . Date of Last Stent Placement:: 2007 Past Psychological History: Anxiety, Depression Smoking Status: Former smoker Past Alcohol Use History: Rare Additional Past Alcohol Use History / Comment(s): quit smoking 2012, smoked approx 30yrs ,1ppd Past Drug Use History: None Reported - Past Family History Father Family Medical History: Cancer Son(s) Family Medical History: Cancer Mother Family Medical History: Neurologic Disorder Additional Family Medical History / Comment(s): parkinsons Medications and Allergies Home Medications Medication Instructions Recorded Confirmed Type Aspirin 81 mg PO BID 11/11/14 02/28/20 History Atorvastatin [Lipitor] 20 mg PO HS 02/12/17 02/28/20 History Metoprolol Tartrate [Lopressor] 25 mg PO BID 02/12/17 02/28/20 History lisinopriL [Zestril] 5 mg PO QAM 02/12/17 02/28/20 History metFORMIN HCL [Glucophage] 500 mg PO BID 02/12/17 02/28/20 History Famotidine 40 mg PO DAILY 10/30/17 02/28/20 History Tiotropium 18 Mcg/Puff [Spiriva] 2 puff INHALATION DAILY PRN 07/27/19 02/28/20 History Cholecalciferol (Vitamin D3) 50 mcg PO BID 12/23/19 02/28/20 History [Vitamin D3] Acetaminophen Tab [Tylenol] 500 mg PO DAILY PRN 02/28/20 02/28/20 History Albuterol Sulfate [Ventolin HFA] 2 puff INHALATION RT-QID PRN 02/28/20 02/28/20 History Ipratropium-Albuterol Nebulize 3 ml INHALATION RT-DAILY 02/28/20 02/28/20 History [Duoneb 0.5 mg-3 mg/3 ml Soln] Isosorbide Mononitrate ER [Imdur] 45 mg PO QAM 02/28/20 02/28/20 History bisacodyL [Dulcolax] 5 mg PO DAILY PRN 02/28/20 02/28/20 History polyethylene glycoL 3350 [Miralax] 17 gm PO DAILY PRN 02/28/20 02/28/20 History Allergies Allergy/AdvReac Type Severity Reaction Status Date / Time No Known Allergies Allergy Verified 02/28/20 17:05 Physical Exam Vitals: Vital Signs Temp Pulse Resp BP Pulse Ox 02/29/20 12:00 98.5 F 82 20 118/82 94 L 02/29/20 04:12 98.3 F 63 12 116/71 94 L 02/28/20 20:30 98.5 F 112 H 16 157/84 92 L Intake and Output 02/29/20 02/29/20 02/29/20 06:59 14:59 22:59 Other: Voiding Method Urinal Urinal # Voids 2 2 On physical examination, patient appears comfortable in no apparent distress. HEAD: Normocephalic, atraumatic. EYES: No scleral icterus. No conjunctival injection. MOUTH: No lesions, tongue midline. NECK: Trachea midline, no gross abnormalities. CHEST: Clear to auscultation with no wheezing or rhonchi appreciated. HEART: Regular rate and rhythm. ABDOMEN: Soft, obese. Bowel sounds are positive. No organomegaly. No guarding or rigidity. EXTREMITIES: No pedal edema. SKIN: No rashes, no jaundice. NEUROLOGIC: Alert and oriented x3. No focal deficits. Results CBC & Chem 7: 02/29/20 06:30 02/28/20 13:59 Labs: Abnormal Lab Results - Last 24 Hours (Table) 02/28/20 02/29/20 02/29/20 Range/Units 20:26 06:30 07:02 WBC 12.6 H (3.8-10.6) k/uL Neutrophils # 8.8 H (1.3-7.7) k/uL POC Glucose (mg/dL) 168 H 152 H (75-99) mg/dL 02/29/20 02/29/20 Range/Units 10:59 17:21 WBC (3.8-10.6) k/uL Neutrophils # (1.3-7.7) k/uL POC Glucose (mg/dL) 141 H 122 H (75-99) mg/dL Microbiology - Last 24 Hours (Table) 02/28/20 15:10 Blood Culture - Preliminary Blood No Growth after [address] scan - abdomen: report reviewed (computed tomography scan abdomen with findings of left colonic colitis) Assessment and Plan (1) Colitis Narrative/Plan: 64-year-old male with multiple medical comorbidities including coronary artery disease or presented to the hospital with complaints of abdominal pain and blood per rectum. Computed tomography scan of the abdomen showing a left colonic colitis. No prior episodes of colitis. EGD and colonoscopy in 07/2019 significant for mild gastritis and hemorrhoids. Patient reports acute development of abdominal pain described as sharp and cramping with associated maroon-colored stool. Unknown etiology, may be related to ischemic colitis given underlying coronary artery disease, with differential also including infectious colitis, inflammatory process is less likely given the acuity of symptoms and colonoscopy findingsin July. Current Visit: Yes Status: Acute Code(s): K52.9 - NONINFECTIVE GASTROENTERITIS AND COLITIS, UNSPECIFIED SNOMED Code(s): 62289153 (2) Abdominal pain Current Visit: Yes Status: Acute Code(s): R10.9 - UNSPECIFIED ABDOMINAL PAIN SNOMED Code(s): 32517178 (3) Lower gastrointestinal hemorrhage Current Visit: Yes Status: Acute Code(s): K92.2 - GASTROINTESTINAL HEMOR RHAGE, UNSPECIFIED SNOMED Code(s): 37930875 Plan: supportive care Okay for clear liquid diet Advance diet to low fiber, low residual as tolerated Continue broad-spectrum antibiotic therapy Optimization of blood pressure No plans for endoscopic evaluation at this time Continue monitor CBC, BMP in stool output Continue pain control and IV fluid hydration Thank you for allowing us to participate in the care of the patient
[2020-03-01 11:29] LABS: Glucose,Whole Blood 123 mg/dL (75-99)
[2020-03-01 11:36] VITALS: BP 108/61; PULSE 73; RESP 20; TEMP 98
--- NOTE | 2020-03-02 13:15 | P.DS ---
Providers Date of admission: 02/28/20 14:59 Expected date of discharge: 03/01/20 Attending physician: Antonio Mosley Consults: 02/28/20 14:59 Consult Physician Urgent Consulting Provider: Cindy Denis Consult Reason/Comments: gi hemorrhage Do you want consulting provider notified?: Yes Primary care physician: Antoni Singh Hospital Course: Final diagnosis -Likely acute ischemic colitis off descending colon. Infection component cannot be ruled out. -Possible sepsis, present on admission secondary to above -coronary artery disease with history of stent -Coronary spasm diagnosed per cardiac catheterization recently -COPD in an ex-smoker, not in acute exacerbation -Diabetes mellitus type 2 -GERD -Hyperlipidemia -Essential hypertension -Cauda equina syndrome -Internal hemorrhoids -Obstructive sleep apnea uses CPAP machine Discharge disposition Patient is being discharged in a stable condition with guarded prognosis to home. Patient will follow-up with Dr. Skinner upon discharge. Patient will continue with a short course of oral antibiotics in the form of Augmentin twice daily for the next 7 days and then may discontinue. Patient will also follow- up with GI Dr. Denis in the outpatient setting. Total time taken is 35 minutes. History of present illness This is an 64-year-old male who was recently admitted with increasing lower abdominal pain and found to have maroon colored stool and was being closely monitored. Patient was seen and evaluated by GI recommending outpatient follow- up and continue with oral antibiotics in the form of Augmentin twice daily for the next one week to complete the course. Patient does see Dr. Denis in the outpatient setting. Patient currently feels that the abdominal discomfort has improved and is able to tolerate diet with no reports of nausea or vomiting noted. Patient instructed to continue with a low fiber diet over the next few days and slowly advance as tolerated. Currently no reports of chest pain, shortness of breath, or palpitations. Patient is afebrile. No reports of nausea or vomiting and patient is tolerating diet. On exam vital signs are stable. Temp is 98.0F, pulse is 73, respirations are 2 0, blood pressure is 108/61, oxygen saturation is 93% on room air. Cardio S1, S2 are muffled. Respiratory shows diminished breath sounds at the bases with no wheezing or rhonchi noted. Abdomen is soft and nontender. Nervous system shows no focal deficits. Please refer to medication reconciliation sheet for a list of medications. Patient Condition at Discharge: Stable Plan - Discharge Summary Discharge Rx Participant: Yes New Discharge Prescriptions: New Amoxic-Pot Clav 875-125Mg [Augmentin 875-125] 1 tab PO Q12HR 7 Days #14 tab Continue Aspirin 81 mg PO BID metFORMIN HCL [Glucophage] 500 mg PO BID Metoprolol Tartrate [Lopressor] 25 mg PO BID lisinopriL [Zestril] 5 mg PO QAM Atorvastatin [Lipitor] 20 mg PO HS Famotidine 40 mg PO DAILY Tiotropium 18 Mcg/Puff [Spiriva] 2 puff INHALATION DAILY PRN PRN Reason: Shortness Of Breath Cholecalciferol (Vitamin D3) [Vitamin D3] 50 mcg PO BID polyethylene glycoL 3350 [Miralax] 17 gm PO DAILY PRN PRN Reason: Constipation Albuterol Sulfate [Ventolin HFA] 2 puff INHALATION RT-QID PRN PRN Reason: Shortness Of Breath Acetaminophen Tab [Tylenol] 500 mg PO DAILY PRN PRN Reason: Pain bisacodyL [Dulcolax] 5 mg PO DAILY PRN PRN Reason: Constipation Ipratropium-Albuterol Nebulize [Duoneb 0.5 mg-3 mg/3 ml Soln] 3 ml INHALATION RT-DAILY Isosorbide Mononitrate ER [Imdur] 45 mg PO QAM Discharge Medication List Aspirin 81 mg PO BID 11/11/14 [History] Atorvastatin [Lipitor] 20 mg PO HS 02/12/17 [History] Metoprolol Tartrate [Lopressor] 25 mg PO BID 02/12/17 [History] lisinopriL [Zestril] 5 mg PO QAM 02/12/17 [History] metFORMIN HCL [Glucophage] 500 mg PO BID 02/12/17 [History] Famotidine 40 mg PO DAILY 10/30/17 [History] Tiotropium 18 Mcg/Puff [Spiriva] 2 puff INHALATION DAILY PRN 07/27/19 [History] Cholecalciferol (Vitamin D3) [Vitamin D3] 50 mcg PO BID 12/23/19 [History] Acetaminophen Tab [Tylenol] 500 mg PO DAILY PRN 02/28/20 [History] Albuterol Sulfate [Ventolin HFA] 2 puff INHALATION RT-QID PRN 02/28/20 [History] Ipratropium-Albuterol Nebulize [Duoneb 0.5 mg-3 mg/3 ml Soln] 3 ml INHALATION RT-DAILY 02/28/20 [History] Isosorbide Mononitrate ER [Imdur] 45 mg PO QAM 02/28/20 [History] bisacodyL [Dulcolax] 5 mg PO DAILY PRN 02/28/20 [History] polyethylene glycoL 3350 [Miralax] 17 gm PO DAILY PRN 02/28/20 [History] Amoxic-Pot Clav 875-125Mg [Augmentin 875-125] 1 tab PO Q12HR 7 Days #14 tab 03/01/20 [Rx] Follow up Appointment(s)/Referral(s): Antoni Singh MD [Primary Care Provider] - 03/08/20 8:00 am Cindy Denis MD [STAFF PHYSICIAN] - 03/15/20 8:15 am (You will be seeing Stephanie Nguyễn the FOLLOW UP REP.) Patient Instructions/Handouts: Low Fiber Diet (GEN), Colitis (ED) Activity/Diet/Wound Care/Special Instructions: Activity Limited until follow-up Continue with low fiber diet for the next few days and advance slowly as tolerated Follow-up with primary care provider upon discharge Continue with antibiotics for 7 days and then may discontinue Follow-up with GI in the outpatient setting in 2-3 weeks Discharge Disposition: HOME SELF-CARE
== END 2020-03-01 14:04 | disposition home or self-care (01) | DRG 871 ==
LOC: EC 13:00 → 6NMEDSUR 14:59
PROVIDERS: ADMIT Hospitalist; ATTEND Hospitalist
DX: A41.9 Sepsis, unspecified organism (principal); K55.039 Acute (reversible) ischemia of large intestine, extent unspecified; A09 Infectious gastroenteritis and colitis, unspecified; G83.4 Cauda equina syndrome; K21.9 Gastro-esophageal reflux disease without esophagitis; F32.9 Major depressive disorder, single episode, unspecified; E78.5 Hyperlipidemia, unspecified; G47.33 Obstructive sleep apnea (adult) (pediatric); I25.10 Atherosclerotic heart disease of native coronary artery without angina pectoris; I10 Essential (primary) hypertension; E11.9 Type 2 diabetes mellitus without complications; K64.8 Other hemorrhoids; K29.70 Gastritis, unspecified, without bleeding; J44.9 Chronic obstructive pulmonary disease, unspecified; F41.9 Anxiety disorder, unspecified; I25.2 Old myocardial infarction; Z79.82 Long term (current) use of aspirin; Z79.84 Long term (current) use of oral hypoglycemic drugs; Z79.899 Other long term (current) drug therapy; Z95.5 Presence of coronary angioplasty implant and graft; Z87.891 Personal history of nicotine dependence; Z98.1 Arthrodesis status; Z98.890 Other specified postprocedural states; Z82.0 Family history of epilepsy and other diseases of the nervous system; Z80.9 Family history of malignant neoplasm, unspecified
CPT/HCPCS: 36415; 74177; 80053; 82272; 83605; 85025; 85610; 85730; 87040; 96361; 96374; 96375; 99285

== ENCOUNTER → 2021-04-11 | Outpatient (CLI) | payer BC ==
[2021-04-11 10:58] LABS: African American GFR (CKD) >90 (>60 ml/min/1.73 sqM); Anion Gap 9 mmol/L; Blood Urea Nitrogen 16 mg/dL (9-20); Calcium 9.7 mg/dL (8.4-10.2); Carbon Dioxide 28 mmol/L (22-30); Chloride 105 mmol/L (98-107); Glucose 121 mg/dL (74-99); Non-African American GFR(CKD) 87 (>60 ml/min/1.73 sqM); Potassium 4.7 mmol/L (3.5-5.1); Sodium 142 mmol/L (137-145)
--- NOTE | 2021-04-11 11:38 | CT ---
EXAMINATION TYPE: CT abdomen w con DATE OF EXAM: 04/11/2021 COMPARISON: 02/28/2020 HISTORY: follow up renal neoplasm CT DLP: 1194 mGycm CONTRAST: CT scan of the abdomen is performed with Oral Contrast and with IV Contrast, patient injected with 10 0 mL of Isovue 300. FINDINGS: LUNG BASES-: No visible nodule. No infiltrate. LIVER/GB: No calcified gallstones. No space occupying hepatic lesion. Biliary tree is of normal ca liber. PANCREAS: No inflammation. No distinct mass. SPLEEN: No splenic enlargement. No lesion seen. ADRENALS: No nodule. No thickening. KIDNEYS/BLADDER: No hydronephrosis. No nephrolithiasis. No distinct renal mass. Urinary bladder g rossly unremarkable. BOWEL: The visualized bowel loops appear to be of normal caliber. LYMPH NODES: No greater than 1cm abdominal or pelvic lymph nodes are appreciated. AORTA: No significant abnormality. OSSEOUS STRUCTURES: No significant abnormality is seen. OTHER: No significant additional abnormality is seen. IMPRESSION: 1. No recurrent or residual renal mass identified.
== END | disposition home or self-care (01) ==
LOC: RADCTMAIN 10:10
PROVIDERS: ATTEND Surgery
DX: Z85.528 Personal history of other malignant neoplasm of kidney (principal)
CPT/HCPCS: 84153; 80048; 74160; 36415; Q9967

== ENCOUNTER → 2021-05-01 | Outpatient (CLI) | payer BC ==
--- NOTE | 2021-05-01 09:57 | CTL ---
EXAMINATION TYPE: CT Low Dose Lung DATE OF EXAM ORDERED: 05/01/2021 HISTORY: 66-year-old male Z87.891, tobacco use, nicotine dependance. Lung cancer screening CT DLP: 127.[address] CTDI: 3.4 mGy Automated exposure control for dose reduction was used. SCREENING VISIT: Baseline COMPARISON: CT angiography chest 12/02/2018 TECHNIQUE: Low dose computed tomography scan was performed through the chest with coronal and sagitta l reconstructions. CT DIAGNOSTIC QUALITY: Satisfactory FINDINGS: Heart normal size without pericardial effusion. LAD coronary artery calcifications are present. Mild ectasia aortic root at 3.6 cm. Conventional arch vessel branching anatomy. Similar nodular extension from the inferior left lobe of the thyroid gland back to 12/02/2018. Mildly enlarged 1.3 cm lower right paratracheal lymph node has a large fatty hilum and is unchanged compatib le with a benign etiology. Subcarinal lymph node is borderline at 1.4 cm, also unchanged. No progress souleymane thoracic lymphadenopathy. Moderate bilateral gynecomastia. There is mild centrilobular emphysema. Mild diffuse bronchial wall thickening. Strandy atelectasis or scarring in the lower lungs, likely scarring given stability from 2019. Minimal scattered endobronch ial mucoid opacification in the basilar left lower lobe. No consolidation or pleural effusion. Visualized upper abdomen shows no gross abnormality. Bones: Some degenerative changes at the sternomanubrial joint. No osseous destructive process. IMPRESSION: 1. Lung RADS 1, negative. No suspicious pulmonary nodules. 2. COPD with mild emphysema. Chronic basilar strandy scarring. 3. Moderate bilateral gynecomastia incidentally noted, unchanged from 2019. CT LUNG RAD AND CT CHEST RECOMMENDATION: Lung-Rad 1 Negative: Continue annual screening with LDCT in 12 months.
== END | disposition home or self-care (01) ==
LOC: RADCTMAIN 08:26
PROVIDERS: ATTEND Family Medicine
DX: Z12.2 Encounter for screening for malignant neoplasm of respiratory organs (principal); Z87.891 Personal history of nicotine dependence; J43.9 Emphysema, unspecified
CPT/HCPCS: 71271

== ENCOUNTER 2021-09-07 12:54 | Observation (INO) | payer BC ==
--- NOTE | 2021-09-07 13:28 | ED ---
General Adult HPI - General Chief complaint: Chest Pain Stated complaint: Chest pains Time Seen by Provider: 09/07/21 13:10 Source: patient, EMS, RN notes reviewed, old records reviewed Mode of arrival: EMS - History of Present Illness Initial comments: This is a 66-year-old male presents emergency department with past medical history significant for coronary artery disease and stent placement. Patient states he does not have high blood pressure or high cholesterol but he does have diabetes. Patient denies any smoking history. Patient states he woke up this morning he had sharp chest pain that radiates from the front to the back and he states it's worse with increased breathing. Patient states is always there when he takes a deep breath is worse per patient denies any fever chills or cough. Patient denies any abdominal pain. Patient denies nausea vomiting diarrhea per patient denies lightheadedness dizziness. Patient denies any calf pain but does have some edema in the legs. - Related Data Home Medications Medication Instructions Recorded Confirmed Aspirin 81 mg PO BID 11/11/14 02/28/20 Atorvastatin [Lipitor] 20 mg PO HS 02/12/17 02/28/20 Metoprolol Tartrate [Lopressor] 25 mg PO BID 02/12/17 02/28/20 lisinopriL [Zestril] 5 mg PO QAM 02/12/17 02/28/20 metFORMIN HCL [Glucophage] 500 mg PO BID 02/12/17 02/28/20 Famotidine 40 mg PO DAILY 10/30/17 02/28/20 Tiotropium 18 Mcg/Puff [Spiriva] 2 puff INHALATION DAILY PRN 07/27/19 02/28/20 Cholecalciferol (Vitamin D3) 50 mcg PO BID 12/23/19 02/28/20 [Vitamin D3] Acetaminophen Tab [Tylenol] 500 mg PO DAILY PRN 02/28/20 02/28/20 Albuterol Sulfate [Ventolin HFA] 2 puff INHALATION RT-QID PRN 02/28/20 02/28/20 Ipratropium-Albuterol Nebulize 3 ml INHALATION RT-DAILY 02/28/20 02/28/20 [Duoneb 0.5 mg-3 mg/3 ml Soln] Isosorbide Mononitrate ER [Imdur] 45 mg PO QAM 02/28/20 02/28/20 bisacodyL [Dulcolax] 5 mg PO DAILY PRN 02/28/20 02/28/20 polyethylene glycoL 3350 [Miralax] 17 gm PO DAILY PRN 02/28/20 02/28/20 Previous Rx's Medication Instructions Recorded Amoxic-Pot Clav 875-125Mg 1 tab PO Q12HR 7 Days #14 tab 03/01/20 [Augmentin 875-125] Allergies Allergy/AdvReac Type Severity Reaction Status Date / Time No Known Allergies Allergy Verified 02/28/20 17:05 Review of Systems ROS Statement: Those systems with pertinent positive or pertinent negative responses have been documented in the HPI. ROS Other: All systems not noted in ROS Statement are negative. Past Medical History Past Medical History: Coronary Artery Disease (CAD), COPD, Diabetes Mellitus, GERD/Reflux, Hyperlipidemia, Hypertension, Myocardial Infarction ([place]), Sleep Apnea/CPAP/BIPAP Additional Past Medical History / Comment(s): caudia equina syndrome - states partial paralysis from waist down- has minimal feeling from waist down, problems with bladder and bowel. (past hx of self cath) hemorrhoids, aspirates food occ. causing persistent sore throat & hoarseness.,, uses c-pap machine, SOB., states constipation & diarrhea & blood in stool., states he feels full after eating small amt, nausea. Last Myocardial Infarction Date:: unknown History of Any Multi-Drug Resistant Organisms: None Reported Past Surgical History: Heart Catheterization, Heart Catheterization With Stent Additional Past Surgical History / Comment(s): Cervical Fusion; Lower Back surg gerald; Hemorrhoidectomy x 3-banding. Right eye surgery, cystoscopy, heart stent x1 Past Anesthesia/Blood Transfusion Reactions: No Reported Reaction Additional Past Anesthesia/Blood Transfusion Reaction / Comment(s): . Date of Last Stent Placement:: 2007 Past Psychological History: Anxiety, Depression Smoking Status: Former smoker Past Alcohol Use History: Rare Past Drug Use History: None Reported - Past Family History Father Family Medical History: Cancer Son(s) Family Medical History: Cancer Mother Family Medical History: Neurologic Disorder Additional Family Medical History / Comment(s): parkinsons General Exam - General Exam Comments Initial Comments: GENERAL: Patient is well-developed and well-nourished. Patient is nontoxic and well- hydrated and is in mild distress. ENT: Neck is soft and supple. No significant lymphadenopathy is noted. Oropharynx is clear. Moist mucous membranes. Neck has full range of motion without eliciting any pain. EYES: The sclera were anicteric and conjunctiva were pink and moist. Extraocular movements were intact and pupils were equal round and reactive to light. Eyelids were unremarkable. PULMONARY: Unlabored respirations. Good breath sounds bilaterally. No audible rales rhonchi or wheezing was noted. CARDIOVASCULAR: There is a regular rate and rhythm without any murmurs gallops or rubs. ABDOMEN: Soft and nontender with normal bowel sounds. SKIN: Skin is clear with no lesions or rashes and otherwise unremarkable. NEUROLOGIC: Patient is alert and oriented x3. Cranial nerves II through XII are grossly intact. Motor and sensory are also intact. Normal speech, volume and content. Symmetrical smile. MUSCULOSKELETAL: Normal extremities with adequate strength and full range of motion. 1+ edema LYMPHATICS: No significant lymphadenopathy is noted PSYCHIATRIC: Normal psychiatric evaluation. Course Vital Signs 09/07/21 13:19 Temperature 97.8 F Pulse Rate 91 Respiratory 18 Rate Blood Pressure 136/84 O2 Sat by Pulse 94 L Oximetry Medical Decision Making - Medical Decision Making EKG shows sinus rhythm at 85 bpm HI interval is 205 QRSs 112 QTC intervals 411 QTC is 453 per patient's EKG shows no ST segment elevation or depression. Chest x-ray shows no acute abnormality. Patient states this site of symptoms was sent to the symptoms he had last time he needed to have a stent placed. I spoke with some physicians agreed to admit the patient admitted the patient I wrote admitting orders and consult cardiology. - Lab Data Result diagrams: 09/07/21 13:35 09/07/21 13:35 Lab Results 09/07/21 09/07/21 09/07/21 Range/Units 13:35 13:35 13:35 WBC 5.0 (3.8-10.6) k/uL RBC 4.11 L (4.30-5.90) m/uL Hgb 13.2 (13.0-17.5) gm/dL Hct 39.8 (39.0-53.0) % MCV 97.0 (80.0-100.0) fL MCH 32.1 (25.0-35.0) pg MCHC 33.0 (31.0-37.0) g/dL RDW 13.2 (11.5-15.5) % Plt Count 271 (150-450) k/uL MPV 6.6 Neutrophils % 57 % Lymphocytes % 28 % Monocytes % 6 % Eosinophils % 5 % Basophils % 1 % Neutrophils # 2.9 (1.3-7.7) k/uL Lymphocytes # 1.4 (1.0-4.8) k/uL Monocytes # 0.3 (0-1.0) k/uL Eosinophils # 0.3 (0-0.7) k/uL Basophils # 0.0 (0-0.2) k/uL PT 11.2 (9.0-12.0) sec INR 1.0 (<1.2) APTT 25.1 (22.0-30.0) sec D-Dimer 0.17 (<0.60) mg/L FEU Sodium 140 (137-145) mmol/L Potassium 3.4 L (3.5-5.1) mmol/L Chloride 109 H (98-107) mmol/L Carbon Dioxide 25 (22-30) mmol/L Anion Gap 6 mmol/L BUN 13 (9-20) mg/dL Creatinine 0.72 (0.66-1.25) mg/dL Est GFR (CKD-EPI)AfAm >90 (>60 ml/min/1.73 sqM) Est GFR (CKD-EPI)NonAf >90 (>60 ml/min/1.73 sqM) Glucose 152 H (74-99) mg/dL Calcium 7.7 L (8.4-10.2) mg/dL Magnesium 1.6 (1.6-2.3) mg/dL Total Bilirubin 0.5 (0.2-1.3) mg/dL AST 26 (17-59) U/L ALT 23 (4-49) U/L Alkaline Phosphatase 78 (38-126) U/L Troponin I (0.000-0.034) ng/mL NT-Pro-B Natriuret Pep pg/mL Total Protein 6.2 L (6.3-8.2) g/dL Albumin 3.4 L (3.5-5.0) g/dL 09/07/21 09/07/21 Range/Units 13:35 13:35 WBC (3.8-10.6) k/uL RBC (4.30-5.90) m/uL Hgb (13.0-17.5) gm/dL Hct (39.0-53.0) % MCV (80.0-100.0) fL MCH (25.0-35.0) pg MCHC (31.0-37.0) g/dL RDW (11.5-15.5) % Plt Count (150-450) k/uL MPV Neutrophils % % Lymphocytes % % Monocytes % % Eosinophils % % Basophils % % Neutrophils # (1.3-7.7) k/uL Lymphocytes # (1.0-4.8) k/uL Monocytes # (0-1.0) k/uL Eosinophils # (0-0.7) k/uL Basophils # (0-0.2) k/uL PT (9.0-12.0) sec INR (<1.2) APTT (22.0-30.0) sec D-Dimer (<0.60) mg/L FEU Sodium (137-145) mmol/L Potassium (3.5-5.1) mmol/L Chloride (98-107) mmol/L Carbon Dioxide (22-30) mmol/L Anion Gap mmol/L BUN (9-20) mg/dL Creatinine (0.66-1.25) mg/dL Est GFR (CKD-EPI)AfAm (>60 ml/min/1.73 sqM) Est GFR (CKD-EPI)NonAf (>60 ml/min/1.73 sqM) Glucose (74-99) mg/dL Calcium (8.4-10.2) mg/dL Magnesium (1.6-2.3) mg/dL Total Bilirubin (0.2-1.3) mg/dL AST (17-59) U/L ALT (4-49) U/L Alkaline Phosphatase (38-126) U/L Troponin I <0.012 (0.000-0.034) ng/mL NT-Pro-B Natriuret Pep 17 pg/mL Total Protein (6.3-8.2) g/dL Albumin (3.5-5.0) g/dL Disposition Clinical Impression: Chest pain Disposition: ADMITTED IP TO THIS HOSP Referrals: Antoni Singh MD [Primary Care Provider] - 1-2 days Time of Disposition: 14:41
[2021-09-07 13:45] LABS: Basophils % (A) 1 %; Eosinophils # (A) 0.3 k/uL (0-0.7); Eosinophils % (A) 5 %; HCT 39.8 % (39.0-53.0); HGB 13.2 gm/dL (13.0-17.5); Lymphocytes # (A) 1.4 k/uL (1.0-4.8); Lymphocytes % (A) 28 %; MCH 32.1 pg (25.0-35.0); Mean Platelet Volume 6.6; Monocytes # (A) 0.3 k/uL (0-1.0); Monocytes % (A) 6 %; Neutrophils # (A) 2.9 k/uL (1.3-7.7); Neutrophils % (A) 57 %; Platelet Count 271 k/uL (150-450); RBC 4.11 m/uL (4.30-5.90); RDW 13.2 % (11.5-15.5)
[2021-09-07 14:00] LABS: Partial Thromboplastin Time 25.1 sec (22.0-30.0); Prothrombin Time 11.2 sec (9.0-12.0)
[2021-09-07 14:11] LABS: ALT 23 U/L (4-49); AST 26 U/L (17-59); African American GFR (CKD) >90 (>60 ml/min/1.73 sqM); Albumin 3.4 g/dL (3.5-5.0); Alkaline Phosphatase 78 U/L (38-126); Anion Gap 6 mmol/L; Blood Urea Nitrogen 13 mg/dL (9-20); Calcium 7.7 mg/dL (8.4-10.2); Carbon Dioxide 25 mmol/L (22-30); Chloride 109 mmol/L (98-107); Glucose 152 mg/dL (74-99); Magnesium 1.6 mg/dL (1.6-2.3); Non-African American GFR(CKD) >90 (>60 ml/min/1.73 sqM); Potassium 3.4 mmol/L (3.5-5.1); Sodium 140 mmol/L (137-145); Total Bilirubin 0.5 mg/dL (0.2-1.3); Total Protein 6.2 g/dL (6.3-8.2)
--- NOTE | 2021-09-07 14:40 | XR ---
EXAMINATION TYPE: XR chest 2V DATE OF EXAM: 09/07/2021 COMPARISON: NONE TECHNIQUE: PA and lateral views submitted. HISTORY: Chest pain FINDINGS: The lungs are clear and there is no pneumothorax, pleural effusion, or focal pneumonia. Hyperinflati on. Linear changes at both lung bases most typical scar or atelectasis. Hypertrophic changes spine. P ostsurgical change overlying the cervical spine. No overt failure. Heart size normal. IMPRESSION: 1. COPD with basilar scar or atelectasis favored over infiltrate
[2021-09-07] MEDS ORDERED: NITROGLYCERIN SL TABS 0.4 MG TAB SUBLINGUAL PRN (14:41)
[2021-09-07] MEDS ORDERED: POTASSIUM CHLORIDE ER 20 MEQ TAB.ER PO STA (15:36)
--- NOTE | 2021-09-07 15:48 | P.HPIM ---
History of Present Illness H&P Date: 09/07/21 Chief Complaint: Chest pain Roby is a 66-year-old male with past medical history of coronary artery disease status post stent in 2007, dyslipidemia, questionable history of hypertension and prediabetes. He is accompanied by his and presents today to the ED with retrosternal chest pain that started this morning. He reports that his pain has moved to the back of his chest at this time. Reports that it's worse with deep inspiration. He denies any radiation to arm, jaw or neck. He reports that he had similar kind of pain back in 2007 when he had stent placed, but it was of higher severity and brought him down to his knees. This pain is of mild severity, however he is concerned. He reports that he had left heart catheterization done one year ago with recommendations to continue medical therapy. He denies shortness of breath or palpitations. He denies calf pain. He reports that he has chronic bilateral lower extremity swelling due to venous stasis. He also expresses some issues with GERD, and he reports that he takes famotidine on and off. States that for the past few months he has had no acid reflux. He also reports that his last hemoglobin A1c was 3 months ago and it was 6.2. He shared his medication list with me which includes baby aspirin, atorvastatin, metoprolol, lisinopril, metformin, isosorbide mononitrate and farxiga. He reports that he has quit smoking, however has 40 year pack history of smoking. She denies any significant cardiac history in the family. He denies history of blood clots. In the ED, his vitals were stable. Available labs are Unremarkable except for potassium of 3.4. Initial troponin is negative. I reviewed his EKG, does not show any acute ischemic changes. D-dimer is within normal limits Review of Systems Constitutional: Patient reports no fever, no chills, no weight changes, no change in appetite Eyes: Patient reports no double vision, no visual changes ENT: Patient reports no rhinorrhea, no post nasal drip, no sore throat Cardiovascular: Chest pain and lower extremity edema Respiratory: Patient reports no dyspnea, no cough, no wheeze Gastrointestinal: Patient reports no nausea, no vomiting, no constipation, no diarrhea Genitourinary: Patient reports no dysuria, no urinary frequency, no hematuria. Musculoskeletal: Patient reports no unusual joint pain, no joint swelling or weakness. Patient reports no muscular pain. Psychiatric: Patient reports no changes in mood, no sleeping problems. Patient reports no changes in memory. Endocrine: Patient reports no thirst, no polyuria, no cold intolerance, no heat intolerance. Neurological: Patient reports no unusual paresthesias, no seizures, no paresis, no paralysis, no facila droop, no headache. Heme/Lymphatic: Patient reports no easy bruising, no bleeding tendency, no lymphadenopathy. Allergic/ Immunologic: Patient reports no recent allergic reactions or immunologic history. Skin: Patient reports no rashes or unusual lesions. Past Medical History Past Medical History: Coronary Artery Disease (CAD), COPD, Diabetes Mellitus, GERD/Reflux, Hyperlipidemia, Hypertension, Myocardial Infarction ([place]), Sleep Apnea/CPAP/BIPAP Additional Past Medical History / Comment(s): caudia equina syndrome - states partial paralysis from waist down- has minimal feeling from waist down, problems with bladder and bowel. (past hx of self cath) hemorrhoids, aspirates food occ. causing persistent sore throat & hoarseness.,, uses c-pap machine, SOB., states constipation & diarrhea & blood in stool., states he feels full after eating sm all amt, nausea. Last Myocardial Infarction Date:: unknown History of Any Multi-Drug Resistant Organisms: None Reported Past Surgical History: Heart Catheterization, Heart Catheterization With Stent Additional Past Surgical History / Comment(s): Cervical Fusion; Lower Back surgery; Hemorrhoidectomy x 3-banding. Right eye surgery, cystoscopy, heart stent x1 Past Anesthesia/Blood Transfusion Reactions: No Reported Reaction Additional Past Anesthesia/Blood Transfusion Reaction / Comment(s): . Date of Last Stent Placement:: 2007 Past Psychological History: Anxiety, Depression Smoking Status: Former smoker Past Alcohol Use History: Rare Past Drug Use History: None Reported - Past Family History Father Family Medical History: Cancer Son(s) Family Medical History: Cancer Mother Family Medical History: Neurologic Disorder Additional Family Medical History / Comment(s): parkinsons Medications and Allergies Home Medications Medication Instructions Recorded Confirmed Type Atorvastatin [Lipitor] 20 mg PO DAILY 02/12/17 09/07/21 History lisinopriL [Zestril] 5 mg PO DAILY 02/12/17 09/07/21 History Isosorbide Mononitrate ER [Imdur] 30 mg PO DAILY 02/28/20 09/07/21 History Aspirin EC [Ecotrin Low Dose] 81 mg PO BID 09/07/21 09/07/21 History Cholecalciferol [Vitamin D3 (125 250 mcg PO DAILY 09/07/21 09/07/21 History Mcg = 5000 Iu)] Cyanocobalamin (Vitamin B-12) 5,000 mcg PO DAILY 09/07/21 09/07/21 History [Vitamin B12] Dapagliflozin Propanediol [Farxiga] 10 mg PO DAILY 09/07/21 09/07/21 History Docusate [Colace] 100 mg PO DAILY 09/07/21 09/07/21 History Metoprolol Succinate (ER) [Toprol 25 mg PO BID 09/07/21 09/07/21 History Xl] Allergies Allergy/AdvReac Type Severity Reaction Status Date / Time No Known Allergies Allergy Verified 09/07/21 15:04 Physical Exam Vitals: Vital Signs Temp Pulse Resp BP Pulse Ox 09/07/21 15:18 98.3 F 90 18 132/83 93 L 09/07/21 13:19 97.8 F 91 18 136/84 94 L Intake and Output 09/07/21 09/07/21 09/07/21 06:59 14:59 22:59 Other: Weight 113.398 kg Constitutional: No acute distress, conversant, pleasant Eyes: Anicteric sclerae, moist conjunctiva, no lid-lag PERRLA HENMT: Normocephalic / Atraumatic oropharynx clear, no erythema, exudates Neck: Supple, full range of motion, nontender, no masses, or JVD no carotid bruits no thyromegaly no lymphadenopathy Lungs: Bilateral equal air entry with no wheezing or crackles. No use of accessory muscles. Cardiovascular: Heart regular in rate and rhythm, no murmur, 1+ peripheral edema Abdominal: Soft, Nontender, no guarding, rebound or rigidity abdomen moving with respiration normoactive bowel sounds no hepatomegaly, No splenomegaly no palpable mass no abdominal wall hernia noted Skin: Normal temperature, tone, texture, turgor no induration no subcutaneous nodules no rash,lesions no ulcers Extremities: No digital cyanosis no clubbing pedal pulses intact and symmetrical radial pulses intact and symmetrical normal gait and station no calf tenderness Psychiatric: Alert and oriented to person, place and time appropriate affect intact judgement Neuro: Muscle Strength 5/5 in all 4 extremities sensation to light touch grossly present throughout cranial nerves II-XII grossly intact no focal sensory deficits Results CBC & Chem 7: 09/07/21 13:35 09/07/21 13:35 Labs: Abnormal Lab Results - Last 24 Hours (Table) 09/07/21 09/07/21 Range/Units 13:35 13:35 RBC 4.11 L (4.30-5.90) m/uL Potassium 3.4 L (3.5-5.1) mmol/L Chloride 109 H (98-107) mmol/L Glucose 152 H (74-99) mg/dL Calcium 7.7 L (8.4-10.2) mg/dL Total Protein 6.2 L (6.3-8.2) g/dL Albumin 3.4 L (3.5-5.0) g/dL Chest x-ray: report reviewed Thrombosis Risk Factor Assmnt - DVT/VTE Prophylaxis DVT/VTE Prophylaxis: Pharmacologic Prophylaxis ordered Assessment and Plan Assessment: Chest pain, rule out ACS -Initial EKG and troponin as above. D-dimer negative -Admit to telemetry -Consult cardiology -Trend troponin every 3 hours 2 -Repeat EKG in the a.m. -Stat EKG and troponin patient starts having acute chest pain -Due to his history, might benefit from evaluation of coronary arteries either with coronary angiogram or stress test. Defer to cardiology Hypokalemia -Replace with 40 meq oral potassium -Check BMP in the a.m. Prediabetes -Patient reports last A1c 3 months ago was 6.2 -Check A1c -Hold metformin at this time. Patient reports not taking metformin at home due to GI issues Dyslipidemia -Check lipid panel -On atorvastatin, continue CAD status post stent -Continue aspirin, atorvastatin and beta judit DVT prophylaxis with Lovenox Total time spent 50 minutes Time with Patient: Greater than 30
[2021-09-07] MEDS: NITROGLYCERIN OINT 1 INCH/GM PACKET TOPICAL SCH ×2 (17:09→23:36)
[2021-09-07] MEDS ORDERED: ACETAMINOPHEN TAB 325 MG TAB PO PRN (20:10)
[2021-09-07] MEDS: METOPROLOL SUCCINATE (ER) 25 MG TAB.ER.24H PO SCH (20:17)
[2021-09-08 04:15] VITALS: TEMP 97.8
[2021-09-08 05:25] LABS: African American GFR (CKD) >90 (>60 ml/min/1.73 sqM); Anion Gap 5 mmol/L; Blood Urea Nitrogen 11 mg/dL (9-20); Calcium 8.5 mg/dL (8.4-10.2); Carbon Dioxide 26 mmol/L (22-30); Chloride 106 mmol/L (98-107); Glucose 132 mg/dL (74-99); Non-African American GFR(CKD) >90 (>60 ml/min/1.73 sqM); Potassium 4.3 mmol/L (3.5-5.1); Sodium 137 mmol/L (137-145)
[2021-09-08] MEDS: NITROGLYCERIN OINT 1 INCH/GM PACKET TOPICAL SCH (05:43)
[2021-09-08 07:20] VITALS: BP 135/85; PULSE 77; RESP 15
[2021-09-08] MEDS ORDERED: ENOXAPARIN 40 MG/0.4 ML SYRINGE SQ SCH (09:00)
[2021-09-08] MEDS ORDERED: ASPIRIN 325 MG TAB PO SCH (09:00)
[2021-09-08] MEDS ORDERED: ATORVASTATIN 20 MG TAB PO SCH (09:00)
[2021-09-08 09:18] LABS: Chol/HDL Ratio 3.33 Ratio; LDL Cholesterol,Calculated 67.8 mg/dL (0.0-131.0)
--- NOTE | 2021-09-08 11:47 | P.CRDCN ---
History of Present Illness History of present illness: HISTORY OF PRESENTING ILLNESS Patient is a pleasant 66-year-old male with history of CAD status post stenting in 2007, suspicion of vasospastic, vasospasm spasm, hypertension, prediabetes me llitus. He did have prior heart catheterization which demonstrated vasospasm and therefore has been treated with nitroglycerin by Dr. Olvera. He states he was sitting finishing his dinner when he started having substernal chest tightness which actually was worse in the back and radiated to the front. He states it was fairly persistent for approximately 24 hours and only recently started to alleviate. He admits that it is worse with deep inspiration and no other exacerbating or alleviating maneuvers. He denies any associated shortness breath, diaphoresis or nausea. It did however feel similar to his first episode of stenting and therefore he took nitroglycerin inhaled and had no improvement and therefore called EMS. Troponins noted to be normal 3. D-dimer normal. EKG shows normal sinus rhythm, left axis deviation, no significant ST or T-wave abnormalities. REVIEW OF SYSTEMS At the time of my exam: CONSTITUTIONAL: Denies fever or chills. CARDIOVASCULAR: +chest pain, no shortness of breath, orthopnea, PND or palpitations. RESPIRATORY: Denies cough. GASTROINTESTINAL: Denies abdominal pain, diarrhea, constipation, nausea or vomiting. MUSCULOSKELETAL: Denies myalgias. NEUROLOGIC: Denies numbness, tingling or weakness. ENDOCRINE: Denies fatigue, weight change, polydipsia or polyurina. GENITOURINARY: Denies burning, hematuria or urgency with micturation. HEMATOLOGIC: Denies history of anemia or bleeding. PHYSICAL EXAMINATION Vital signs reviewed. CONSTITUTIONAL: No apparent distress. HEENT: Head is normocephalic. Pupils are equal, round. Sclerae anicteric. Mucous membranes of the mouth are moist. No JVD. No carotid bruit. CHEST EXAMINATION: Lungs are clear to auscultation. No chest wall tenderness is noted on palpation or with deep breathing. HEART EXAMINATION: Regular rate and rhythm. S1, S2 heard. No murmurs, gallops or rub. ABDOMEN: Soft, nontender. Positive bowel sounds. EXTREMITIES: 2+ peripheral pulses, no lower extremity edema and no calf tenderness. NEUROLOGIC EXAMINATION: Patient is awake, alert and oriented x3. ASSESSMENT 1. Atypical pleuritic chest pain worse with deep inspiration going around to his back. Acute coronary syndrome has been ruled out 2. History of coronary artery disease with prior PCI 3. History of coronary vasospasm 4. Prediabetes mellitus 5. Hypertension PLAN Is normal 3 and pain is more in the back coming around and worse with deep inspiration. Suspect some sort of musculoskeletal etiology versus less likely pleurisy. D-dimer normal and do not suspect PE. Symptoms are improving and patient appears stable for discharge home from a cardiology standpoint. Past Medical History Past Medical History: Coronary Artery Disease (CAD), COPD, Diabetes Mellitus, GERD/Reflux, Hyperlipidemia, Hypertension, Myocardial Infarction (SC), Sleep Apnea/CPAP/BIPAP Additional Past Medical History / Comment(s): caudia equina syndrome - states partial paralysis from waist down- has minimal feeling from waist down, problems with bladder and bowel. (past hx of self cath) hemorrhoids, aspirates food occ. causing persistent sore throat & hoarseness.,, uses c-pap machine, SOB., states constipation & diarrhea & blood in stool., states he feels full after eating small amt, nausea. Last Myocardial Infarction Date:: unknown History of Any Multi-Drug Resistant Organisms: None Reported Past Surgical History: Heart Catheterization, Heart Catheterization With Stent Additional Past Surgical History / Comment(s): Cervical Fusion; Lower Back surgery; Hemorrhoidectomy x 3-banding. Right eye surgery, cystoscopy, heart stent x1 Past Anesthesia/Blood Transfusion Reactions: No Reported Reaction Additional Past Anesthesia/Blood Transfusion Reaction / Comment(s): . Date of Last Stent Placement:: 2007 Past Psychological History: Anxiety, Depression Smoking Status: Former smoker Past Alcohol Use History: Rare Additional Past Alcohol Use History / Comment(s): quit smoking 2012, smoked approx 30yrs ,1ppd Past Drug Use History: None Reported - Past Family History Father Family Medical History: Cancer Son(s) Family Medical History: Cancer Mother Family Medical History: Neurologic Disorder Additional Family Medical History / Comment(s): parkinsons Medications and Allergies Home Medications Medication Instructions Recorded Confirmed Type Atorvastatin [Lipitor] 20 mg PO DAILY 02/12/17 09/07/21 History lisinopriL [Zestril] 5 mg PO DAILY 02/12/17 09/07/21 History Isosorbide Mononitrate ER [Imdur] 30 mg PO DAILY 02/28/20 09/07/21 History Aspirin EC [Ecotrin Low Dose] 81 mg PO BID 09/07/21 09/07/21 History Cholecalciferol [Vitamin D3 (125 250 mcg PO DAILY 09/07/21 09/07/21 History Mcg = 5000 Iu)] Cyanocobalamin (Vitamin B-12) 5,000 mcg PO DAILY 09/07/21 09/07/21 History [Vitamin B12] Dapagliflozin Propanediol [Farxiga] 10 mg PO DAILY 09/07/21 09/07/21 History Docusate [Colace] 100 mg PO DAILY 09/07/21 09/07/21 History Metoprolol Succinate (ER) [Toprol 25 mg PO BID 09/07/21 09/07/21 History Xl] Allergies Allergy/AdvReac Type Severity Reaction Status Date / Time No Known Allergies Allergy Verified 09/07/21 15:04 Physical Exam Vitals: Vital Signs Temp Pulse Pulse Resp BP BP Pulse Ox 09/08/21 07:00 97.8 F 77 15 135/85 91 L 09/08/21 02:37 97.8 F 69 18 151/80 94 L 09/07/21 20:00 83 19 09/07/21 19:26 98.0 F 83 19 136/72 92 L 09/07/21 16:56 97.6 F 87 18 160/88 92 L 09/07/21 16:45 81 18 143/83 93 L 09/07/21 15:18 98.3 F 90 18 132/83 93 L 09/07/21 13:19 97.8 F 91 18 136/84 94 L Intake and Output 09/07/21 09/08/21 09/08/21 22:59 06:59 14:59 Intake Total 118 Balance 118 Intake: Oral 118 Other: Voiding Method Toilet # Voids 1 Weight 113.398 kg Results 09/07/21 13:35 09/08/21 04:48 Cardiac Enzymes 09/07/21 09/07/21 09/07/21 Range/Units 13:35 13:35 15:43 AST 26 (17-59) U/L Troponin I <0.012 <0.012 (0.000-0.034) ng/mL 09/07/21 Range/Units 19:47 AST (17-59) U/L Troponin I <0.012 (0.000-0.034) ng/mL Coagulation 09/07/21 Range/Units 13:35 PT 11.2 (9.0-12.0) sec APTT 25.1 (22.0-30.0) sec Lipids 09/08/21 Range/Units 04:48 Triglycerides 151.00 H (0.00-149.00) mg/dL Cholesterol 140.00 (0.00-200.00) mg/dL HDL Cholesterol 42.00 (40.00-60.00) mg/dL Cholesterol/HDL Ratio 3.33 Ratio CBC 09/07/21 Range/Units 13:35 WBC 5.0 (3.8-10.6) k/uL RBC 4.11 L (4.30-5.90) m/uL Hgb 13.2 (13.0-17.5) gm/dL Hct 39.8 (39.0-53.0) % Plt Count 271 (150-450) k/uL Comprehensive Metabolic Panel 09/07/21 09/08/21 Range/Units 13:35 04:48 Sodium 140 137 (137-145) mmol/L Potassium 3.4 L 4.3 (3.5-5.1) mmol/L Chloride 109 H 106 (98-107) mmol/L Carbon Dioxide 25 26 (22-30) mmol/L BUN 13 11 (9-20) mg/dL Creatinine 0.72 0.73 (0.66-1.25) mg/dL Glucose 152 H 132 H (74-99) mg/dL Calcium 7.7 L 8.5 (8.4-10.2) mg/dL AST 26 (17-59) U/L ALT 23 (4-49) U/L Alkaline Phosphatase 78 (38-126) U/L Total Protein 6.2 L (6.3-8.2) g/dL Albumin 3.4 L (3.5-5.0) g/dL Current Medications Generic Name Dose Route Start Last Admin Trade Name Freq PRN Reason Stop Dose Admin Acetaminophen 650 mg 09/07/21 20:10 09/07/21 20:17 Acetaminophen Tab 325 Mg Tab PO 650 mg Q4HR PRN Administration Fever and/ or Pain Aspirin 325 mg 09/08/21 09:00 09/08/21 09:56 Aspirin 325 Mg Tab PO 325 mg DAILY LALO Administration Atorvastatin Calcium 20 mg 09/08/21 09:00 09/08/21 09:56 Atorvastatin 20 Mg Tab PO 20 mg DAILY LALO Administration Enoxaparin Sodium 40 mg 09/08/21 09:00 09/08/21 09:55 Enoxaparin 40 Mg/0.4 Ml Syringe SQ 40 mg DAILY LALO Administration Metoprolol Succinate 25 mg 09/07/21 21:00 09/07/21 20:17 Metoprolol Succinate (Er) 25 Mg Tab.Er.24h PO 25 mg BID [facility] Administration Nitroglycerin 0.4 mg 09/07/21 14:41 Nitroglycerin Sl Tabs 0.4 Mg Tab SUBLINGUAL Q5M PRN Chest Pain Nitroglycerin 1 inch 09/07/21 18:00 09/08/21 05:43 Nitroglycerin Oint 1 Inch/Gm Packet TOPICAL Not Given Q6HR LALO Intake and Output 09/07/21 09/08/21 09/08/21 22:59 06:59 14:59 Intake Total 118 Balance 118 Intake: Oral 118 Other: Voiding Method Toilet # Voids 1 Weight 113.398 kg 09/07/21 13:35 09/08/21 04:48
[2021-09-08] MEDS: METOPROLOL SUCCINATE (ER) 25 MG TAB.ER.24H PO SCH (12:14)
--- NOTE | 2021-09-08 15:01 | P.DS ---
Providers Date of admission: 09/07/21 14:47 Expected date of discharge: 09/08/21 Attending physician: Nancy Colón MD Consults: 09/07/21 14:41 Consult Physician Urgent Consulting Provider: [facility] Consult Reason/Comments: Chest pain Do you want consulting provider notified?: Yes Primary care physician: Antoni [facility] Hospital Course: Roby is a 66-year-old male with past medical history of coronary artery disease status post stent in 2007, dyslipidemia, questionable history of hypertension and prediabetes. In the ED, his vitals were stable. Available l abs are Unremarkable except for potassium of 3.4. Troponins all negative. I reviewed his EKG, does not show any acute ischemic changes. D-dimer is within normal limits. CXR shows COPD with basal scar. Chest pain, rule out ACS -Admitted to telemetry. Cardiology consulted on and cleared patient for discharge. No further complaints of chest pain. Echo not done. Hypokalemia -outpatient f/u BMP Prediabetes -Resume metformin on d/c Dyslipidemia -Resume statin on d/c CAD status post stent -Continued aspirin, atorvastatin and beta judit Gen: awake, alert HEENT: normocephalic, atraumatic, good hearing acuity, moist mucous membranes Resp: good air exchange, breathing comfortably with no accessory muscle use CVS: good distal perfusion x 4, GI: soft, NTTP, ND : no SPT, no CVAT, sutton catheter not present MSK: no pitting edema, no clubbing Neuro: non-focal, moving all extremities Psych: cooperative, euthymic mood Patient Condition at Discharge: Good Plan - Discharge Summary Discharge Rx Participant: No New Discharge Prescriptions: Continue lisinopriL [Zestril] 5 mg PO DAILY Atorvastatin [Lipitor] 20 mg PO DAILY Isosorbide Mononitrate ER [Imdur] 30 mg PO DAILY Aspirin EC [Ecotrin Low Dose] 81 mg PO BID Cholecalciferol [Vitamin D3 (125 Mcg = 5000 Iu)] 250 mcg PO DAILY Cyanocobalamin (Vitamin B-12) [Vitamin B12] 5,000 mcg PO DAILY Dapagliflozin Propanediol [Farxiga] 10 mg PO DAILY Docusate [Colace] 100 mg PO DAILY Metoprolol Succinate (ER) [Toprol XL] 25 mg PO BID Discharge Medication List Atorvastatin [Lipitor] 20 mg PO DAILY 02/12/17 [History] lisinopriL [Zestril] 5 mg PO DAILY 02/12/17 [History] Isosorbide Mononitrate ER [Imdur] 30 mg PO DAILY 02/28/20 [History] Aspirin EC [Ecotrin Low Dose] 81 mg PO BID 09/07/21 [History] Cholecalciferol [Vitamin D3 (125 Mcg = 5000 Iu)] 250 mcg PO DAILY 09/07/21 [History] Cyanocobalamin (Vitamin B-12) [Vitamin B12] 5,000 mcg PO DAILY 09/07/21 [History] Dapagliflozin Propanediol [Farxiga] 10 mg PO DAILY 09/07/21 [History] Docusate [Colace] 100 mg PO DAILY 09/07/21 [History] Metoprolol Succinate (ER) [Toprol XL] 25 mg PO BID 09/07/21 [History] Follow up Appointment(s)/Referral(s): Jem Olvera MD [STAFF PHYSICIAN] - 1 Week Antoni Singh MD [Primary Care Provider] - 1-2 days Patient Instructions/Handouts: Chest Pain (DC) Discharge Disposition: HOME SELF-CARE
== END 2021-09-08 12:24 | disposition home or self-care (01) ==
LOC: EC 12:54 → 6NMEDSUR 14:47
PROVIDERS: ADMIT Internal Medicine; ATTEND Internal Medicine
DX: R07.2 Precordial pain (principal); R07.1 Chest pain on breathing; E87.6 Hypokalemia; R73.03 Prediabetes; E78.5 Hyperlipidemia, unspecified; Z95.5 Presence of coronary angioplasty implant and graft; I25.111 Atherosclerotic heart disease of native coronary artery with angina pectoris with documented spasm; J44.9 Chronic obstructive pulmonary disease, unspecified; K21.9 Gastro-esophageal reflux disease without esophagitis; I87.8 Other specified disorders of veins; I25.2 Old myocardial infarction; G47.30 Sleep apnea, unspecified; G83.4 Cauda equina syndrome; K59.00 Constipation, unspecified; R19.7 Diarrhea, unspecified; F32.A Depression, unspecified; F41.9 Anxiety disorder, unspecified; Z87.891 Personal history of nicotine dependence; Z98.1 Arthrodesis status; Z79.899 Other long term (current) drug therapy; Z79.82 Long term (current) use of aspirin; Z79.84 Long term (current) use of oral hypoglycemic drugs; Z82.0 Family history of epilepsy and other diseases of the nervous system; Z80.9 Family history of malignant neoplasm, unspecified
CPT/HCPCS: 96372; 99285; 36415; 93005; 85379; 83880; 80061; 80053; 80048; 83735; 84484; 85025; 85610; 85730; 83036; 71046; G0378 ×2; J1650

== ENCOUNTER → 2021-09-14 | Outpatient (CLI) | payer BC ==
--- NOTE | 2021-09-14 14:50 | US ---
EXAMINATION TYPE: US venous doppler duplex LE DATE OF EXAM: 09/14/2021 2:11 PM COMPARISON: Left lower extremity venous ultrasound 2014. CLINICAL HISTORY: I80.03 PHLEBITIS AND THROMBOPHLEBITIS OF SUPERFICIAL VESSELS. SIDE PERFORMED: Bilateral TECHNIQUE: The lower extremity deep venous system is examined utilizing real time linear array sonog kenan with graded compression, doppler sonography and color-flow sonography. VESSELS IMAGED: Common Femoral Vein Deep Femoral Vein Greater Saphenous Vein * Femoral Vein Popliteal Vein Small Saphenous Vein * Proximal Calf Veins (* superficial vessels) Right Leg: Negative for DVT Left Leg: Negative for DVT Patients calf scanned at redness, no abnormality seen by today's ultrasound. Grayscale, color doppler, spectral doppler imaging performed of the deep veins of the bilateral lower extremities. There is normal flow, compressibility, vascular waveforms. IMPRESSION: No ultrasound evidence for acute DVT in either lower extremity.
== END | disposition home or self-care (01) ==
LOC: RADUSWWP 13:29
PROVIDERS: ATTEND Family Medicine
DX: I80.03 Phlebitis and thrombophlebitis of superficial vessels of lower extremities, bilateral (principal)
CPT/HCPCS: 93970

== ENCOUNTER → 2021-11-21 | Outpatient (CLI) | payer BC ==
[2021-11-21 18:09] LABS: African American GFR (CKD) 91.8 (60.0-200.0); Anion Gap 10.4 mmol/L (10.00-18.00); Blood Urea Nitrogen 13.6 mg/dL (9.0-27.0); Carbon Dioxide 27.6 mmol/L (20.0-27.5); Non-African American GFR(CKD) 79.2 (60.0-200.0); Potassium 4.8 mmol/L (3.5-5.5)
[2021-11-21 18:12] LABS: HCT 45.3 % (39.6-50.0); HGB 13.8 g/dL (13.0-17.0); MCH 30.5 pg (27.0-32.0); MCHC 30.5 g/dL (32.0-37.0); MCV 100.2 fL (80.0-97.0); Mean Platelet Volume 10.9 fL (9.5-12.2); NRBC Per 100 WBC 0 /100 WBCS (0.0-0.0); Platelet Count 291 X 10*3/uL (140-440); RBC 4.52 X 10*6/uL (4.40-5.60); RDW 12.6 % (11.5-14.5); WBC 6.87 X 10*3/uL (4.50-10.00)
== END | disposition home or self-care (01) ==
LOC: LABPAT 12:37
PROVIDERS: ATTEND Internal Medicine Interventional Cardiology
DX: Z01.812 Encounter for preprocedural laboratory examination (principal); I25.10 Atherosclerotic heart disease of native coronary artery without angina pectoris
CPT/HCPCS: 80051; 82565; 84520; 85027

== ENCOUNTER 2021-11-22 06:24 | Day surgery (SDC) | payer BC ==
[~2021-11-22 06:24] MED LIST changes: +HEPARIN SODIUM,PORCINE 10,000 UNIT in SODIUM CHLORIDE 0.9% 1,000 ML IRRIGATION PRN; +HEPARIN SODIUM,PORCINE 2,500 UNIT in SODIUM CHLORIDE 0.9% 250 ML IRRIGATION PRN; -SODIUM CHLORIDE 0.9% 1,000 ML in EMPTY BAG 1 BAG IV ONE
[2021-11-22] MEDS: SODIUM CHLORIDE 0.9% 1,000 ML in EMPTY BAG 1 BAG IV SCH ×3 (07:01→20:51)
[2021-11-22 07:02] LABS: Glucose,Whole Blood 119 mg/dL (75-99)
[2021-11-22 07:12] LABS: Basophils # (A) 0.1 k/uL (0-0.2); Basophils % (A) 1 %; Eosinophils # (A) 0.4 k/uL (0-0.7); Eosinophils % (A) 4 %; HCT 45.3 % (39.0-53.0); HGB 14.5 gm/dL (13.0-17.5); Lymphocytes # (A) 2.1 k/uL (1.0-4.8); Lymphocytes % (A) 22 %; MCH 31.6 pg (25.0-35.0); MCHC 32.1 g/dL (31.0-37.0); MCV 98.5 fL (80.0-100.0); Mean Platelet Volume 7.1; Monocytes # (A) 0.7 k/uL (0-1.0); Monocytes % (A) 7 %; Neutrophils # (A) 6.1 k/uL (1.3-7.7); Neutrophils % (A) 64 %; Platelet Count 286 k/uL (150-450); RDW 13.1 % (11.5-15.5); WBC 9.6 k/uL (3.8-10.6)
[2021-11-22 07:18] LABS: African American GFR (CKD) >90 (>60 ml/min/1.73 sqM); Anion Gap 9 mmol/L; Blood Urea Nitrogen 14 mg/dL (9-20); Calcium 8.7 mg/dL (8.4-10.2); Carbon Dioxide 27 mmol/L (22-30); Chloride 104 mmol/L (98-107); Glucose 130 mg/dL (74-99); Non-African American GFR(CKD) 84 (>60 ml/min/1.73 sqM); Potassium 4.4 mmol/L (3.5-5.1); Sodium 140 mmol/L (137-145)
[2021-11-22] MEDS ORDERED: MIDAZOLAM 2 MG/2 ML VIAL IV ONE (07:30)
[2021-11-22] MEDS ORDERED: LIDOCAINE 1% INJ 10MG/ML (30 ML VIAL-PF) SQ ONE (07:42)
[2021-11-22] MEDS: NITROGLYCERIN 1000MCG/10ML SYRINGE INTRACORON ONE ×2 (07:56→08:21)
[2021-11-22] MEDS ORDERED: IOPAMIDOL-370 100ML BTL INJ ONE ×2 (07:59→08:31)
[2021-11-22] MEDS ORDERED: HEPARIN SODIUM 1,000 UN/ML (10ML VL) ONE (08:01)
[2021-11-22] MEDS ORDERED: CLOPIDOGREL 75 MG TAB ONE (08:06)
[2021-11-22] MEDS ORDERED: CLOPIDOGREL 75 MG TAB PO ONE (08:09)
[2021-11-22] MEDS ORDERED: ALBUTEROL NEBULIZED 2.5 MG/3 ML INHALATION PRN (08:38)
[2021-11-22] MEDS ORDERED: ATORVASTATIN 20 MG TAB PO STA (08:41)
[2021-11-22] MEDS ORDERED: ATORVASTATIN 40 MG TAB PO STA (08:41)
[2021-11-22] MEDS ORDERED: NON FORMULARY DRUG (Tiotropium Br/Olodaterol Hcl [Stiolto Respimat Inhal Spray] 4 GM Each) INHALATION SCH (09:00)
--- NOTE | 2021-11-22 09:12 | P.CARDCATH ---
Description of Procedure: Date of Service Indication for procedure : Unstable angina This patient has history of CAD prior stenting of mid LAD performed in 2007. He has hypertension hyperlipidemia past history of smoking which he quit in 2012. He also has significant COPD. He had a stress test which revealed inferior wall fixed defect with partial reversibility. Anterior wall area was well-perfused. He continues to have persistent chest pain requiring sublingual nitroglycerin. His last cardiac cath from 2019 revealed spasm of RCA with moderate PDA lesion. LAD was widely patent. Because of recurrent episodes of chest pain and a partially reversible inferior wall defect I recommended coronary angiography after trying aggressive medical therapy. Risks benefits and options and rationale was explained to the patient and they understood or details and wish to proceed with the procedure Procedure #1 left heart catheterization and coronary angiography #2 PTCA and stenting of PDA branch of dominant RCA with a drug- eluting stent. Performed by: Dr. Narcisa Zimmerman conscious sedation time was 46 minutes. Patient was administered Versed. Oxygen saturation hemodynamics and EKG were monitored closely Clinical Information: This patient has history of CAD prior stenting of mid LAD performed in 2007. He has hypertension hyperlipidemia past history of smoking which he quit in 2012. He also has significant COPD. He had a stress test which revealed inferior wall fixed defect with partial reversibility. Anterior wall area was well-perfused. He continues to have persistent chest pain requiring sublingual nitroglycerin. His last cardiac cath from 2019 revealed spasm of RCA with moderate PDA lesion. LAD was widely patent. Because of recurrent episodes of chest pain and a partially reversible inferior wall defect I recommended coronary angiography after trying aggressive medical therapy. Risks benefits and options and rationale was explained to the patient and they understood or details and wish to proceed with the procedure Equipment used : standard left heart cath and LV pressures were checked. Standard Amilcar catheters were used. Same right catheter was used to check LV pressures. LV gram was not performed. Following the procedure I went ahead and performed PCI of mid PDA with a drug-eluting stent. I used a standard right Amilcar catheter and run through wire. 2.25 caliber 12 mm long NC trek balloon was used to predilate the lesion and a 2.5 caliber 12 mm long Xience stent was deployed. No chest pain or EKG changes were noted. Patient received 600 mg of Plavix. He received about 9000 units of heparin and ACT was 253. The sheath was sutured and will be reported in 2 hours. He will also have a FemoStop.. He will be on dual antiplatelet therapy for a total duration of minimum 1 year. Results are discussed with the patient and I expect he'll be discharged tomorrow Description RCA dominant vessel the to 35% lesion in the midportion. PDA branch of the 85% lesion PLV has minor irregularities. Nondominant circumflex is large free of significant disease. Left main is free of significant disease. Mid LAD has a widely patent stent with 35% narrowing good flow diagonal branch has minor irregularities. Normal filling pressures and no significant gradient across aortic valve. End-diastolic pressure was 12 mmHg Result: excellent angiographic result was achieved. The PDA branch of RCA was stented. Possible discharge tomorrow. Dual antiplatelet therapy for 12 months.
[2021-11-22] MEDS ORDERED: SODIUM CHLORIDE 0.9% 1,000 ML IV ONE (12:30)
[2021-11-22] MEDS: PATIENT'S OWN (Dapagliflozin Propanediol [Farxiga] 10 MG Tablet) PO SCH (16:28)
[2021-11-22] MEDS: SODIUM CHLORIDE 0.9% 1,000 ML IV SCH ×2 (16:29→21:38)
[2021-11-22] MEDS: INDOMETHACIN 25 MG CAP PO SCH ×2 (16:45→21:37)
[2021-11-22 16:55] LABS: Glucose,Whole Blood 91 mg/dL (75-99)
[2021-11-22] MEDS: FORMOTEROL FUMARATE 20 MCG/2 ML NEBU INHALATION SCH (19:49)
[2021-11-22] MEDS: IPRATROPIUM 0.5 MG/2.5 ML NEBU INHALATION SCH (19:49)
[2021-11-22 20:32] LABS: Glucose,Whole Blood 109 mg/dL (75-99)
[2021-11-22] MEDS ORDERED: FAMOTIDINE 20 MG TAB PO SCH (21:00)
[2021-11-22] MEDS: ISOSORBIDE MONONITRATE ER 30 MG TAB.ER.24H PO SCH (21:36)
[2021-11-22] MEDS: DOCUSATE 100 MG CAP PO SCH (21:36)
[2021-11-22] MEDS: ASPIRIN 81 MG PO SCH (21:36)
[2021-11-23 03:33] VITALS: TEMP 97.4
[2021-11-23 07:05] LABS: Glucose,Whole Blood 123 mg/dL (75-99)
[2021-11-23] MEDS: IPRATROPIUM 0.5 MG/2.5 ML NEBU INHALATION SCH (07:10)
[2021-11-23] MEDS: FORMOTEROL FUMARATE 20 MCG/2 ML NEBU INHALATION SCH (07:10)
[2021-11-23 08:01] VITALS: BP 113/73; PULSE 67; RESP 15
[2021-11-23 08:02] LABS: Basophils % (A) 0 %; Eosinophils # (A) 0.4 k/uL (0-0.7); Eosinophils % (A) 5 %; HGB 14.3 gm/dL (13.0-17.5); Lymphocytes # (A) 1.5 k/uL (1.0-4.8); Lymphocytes % (A) 20 %; MCH 31.2 pg (25.0-35.0); MCHC 31.2 g/dL (31.0-37.0); MCV 100.2 fL (80.0-100.0); Mean Platelet Volume 6.8; Monocytes # (A) 0.6 k/uL (0-1.0); Monocytes % (A) 8 %; Neutrophils # (A) 5.2 k/uL (1.3-7.7); Neutrophils % (A) 66 %; Platelet Count 258 k/uL (150-450); RBC 4.59 m/uL (4.30-5.90); RDW 12.5 % (11.5-15.5); WBC 7.9 k/uL (3.8-10.6)
[2021-11-23 08:12] LABS: African American GFR (CKD) >90 (>60 ml/min/1.73 sqM); Anion Gap 10 mmol/L; Blood Urea Nitrogen 11 mg/dL (9-20); Calcium 8.6 mg/dL (8.4-10.2); Carbon Dioxide 26 mmol/L (22-30); Chloride 105 mmol/L (98-107); Glucose 125 mg/dL (74-99); Non-African American GFR(CKD) >90 (>60 ml/min/1.73 sqM); Potassium 4.5 mmol/L (3.5-5.1); Sodium 141 mmol/L (137-145)
[2021-11-23] MEDS: ASPIRIN 81 MG PO SCH (08:48)
[2021-11-23] MEDS: DOCUSATE 100 MG CAP PO SCH (08:48)
[2021-11-23] MEDS: ISOSORBIDE MONONITRATE ER 30 MG TAB.ER.24H PO SCH (08:48)
[2021-11-23] MEDS: PATIENT'S OWN (Dapagliflozin Propanediol [Farxiga] 10 MG Tablet) PO SCH (08:50)
[2021-11-23] MEDS: INDOMETHACIN 25 MG CAP PO SCH (08:50)
[2021-11-23] MEDS ORDERED: lisinopriL 5 MG TAB PO SCH (09:00)
[2021-11-23] MEDS ORDERED: METOPROLOL SUCCINATE (ER) 50 MG TAB.ER.24H PO SCH (09:00)
[2021-11-23] MEDS ORDERED: CYANOCOBALAMIN 500 MCG TAB PO SCH (09:00)
[2021-11-23] MEDS ORDERED: CLOPIDOGREL 75 MG TAB PO SCH (09:00)
[2021-11-23] MEDS ORDERED: CHOLECALCIFEROL 125 MCG (5000 IU) TABLET PO SCH (09:00)
[2021-11-23] MEDS ORDERED: ATORVASTATIN 80 MG TAB PO SCH (09:00)
[2021-11-23] MEDS: SODIUM CHLORIDE 0.9% 1,000 ML in EMPTY BAG 1 BAG IV SCH (10:43)
--- NOTE | 2021-11-23 18:23 | DS ---
DISCHARGE SUMMARY DATE OF ADMISSION: 11/22/2021 DATE OF DISCHARGE: 11/23/2021 DIAGNOSIS: 1. Unstable angina. 2. Hypertension. 3. Diabetes. Mr. Quinteros was admitted to the hospital yesterday for elective cardiac cath and possible PCI. Catheterization revealed that he had a significant lesion in the PDA branch of RCA. Previously stented LAD was patent. The PDA branch of RCA was stented with a 2.5 caliber drug-eluting stent with good result. Post-PCI course was uneventful. His EKG and labs are unremarkable. He is asymptomatic. Right groin is clean and dry without any hematoma or bruit. Pulse is good. On examination, vital signs are stable. There is no JVD or carotid bruit. S1-S2 heard normally. Lungs are clear. Abdomen and lower extremity exam unchanged. IMPRESSION: 1. Status post percutaneous coronary intervention of PDA uneventfully with a good result. 2. Chronic obstructive pulmonary disease. 3. Hypertension. 4. Hyperlipidemia. RECOMMENDATIONS: Patient will be discharged today. Discharge instructions regarding activity, diet and medication have been given. He will be on dual antiplatelet therapy for one year without interruption. MMODL / IJN: [id number] /
== END 2021-11-23 10:50 | disposition home or self-care (01) ==
LOC: CATHCVL 06:24 → 6NMEDSUR 08:26 → CATHCVL 11-23 10:50
PROVIDERS: ATTEND Internal Medicine Interventional Cardiology
DX: I25.110 Atherosclerotic heart disease of native coronary artery with unstable angina pectoris (principal); I10 Essential (primary) hypertension; E11.9 Type 2 diabetes mellitus without complications; J44.9 Chronic obstructive pulmonary disease, unspecified; E78.00 Pure hypercholesterolemia, unspecified; R94.39 Abnormal result of other cardiovascular function study; Z20.822 Contact with and (suspected) exposure to COVID-19; Z72.0 Tobacco use; Z95.5 Presence of coronary angioplasty implant and graft; G47.33 Obstructive sleep apnea (adult) (pediatric); E66.9 Obesity, unspecified; Z68.35 Body mass index [BMI] 35.0-35.9, adult; Z79.84 Long term (current) use of oral hypoglycemic drugs; Z79.82 Long term (current) use of aspirin; Z79.899 Other long term (current) drug therapy
CPT/HCPCS: 93458; 80048 ×2; 85025 ×2; 87635; C9600; C1769 ×4; C1887; C1725; C1894; C1874; J2250; J2001; J1644; Q9967

== ENCOUNTER → 2022-04-08 | Outpatient (CLI) | payer BC ==
--- NOTE | 2022-04-08 15:19 | US ---
EXAMINATION TYPE: US venous doppler duplex LE RT DATE OF EXAM: 04/08/2022 3:08 PM COMPARISON: 08/25/2021 CLINICAL HISTORY: R60.0 Edema RLE. Right lower leg pain and redness following trauma 4 days ago. SIDE PERFORMED: Right TECHNIQUE: The lower extremity deep venous system is examined utilizing real time linear array sonog kenan with graded compression, doppler sonography and color-flow sonography. VESSELS IMAGED: Common Femoral Vein Deep Femoral Vein Greater Saphenous Vein * Femoral Vein Popliteal Vein Small Saphenous Vein * Proximal Calf Veins (* superficial vessels) Grayscale, color doppler, spectral doppler imaging performed of the deep veins of the lower extremiti es. There is normal flow, compressibility, vascular waveforms. In the area of redness, right lower medial calf, no deep or superficial thrombosis visualized. Right Leg: Negative for DVT IMPRESSION: No evidence for deep venous thrombosis of the right lower extremity.
== END | disposition home or self-care (01) ==
LOC: RADUSWWP 14:29
PROVIDERS: ATTEND Family Medicine
DX: R60.0 Localized edema (principal)

== ENCOUNTER → 2022-05-31 | Outpatient (CLI) | payer BC ==
[2022-05-31 14:19] LABS: Chol/HDL Ratio 2.87 Ratio; LDL Cholesterol,Calculated 71.2 mg/dL (0.0-131.0)
== END | disposition home or self-care (01) ==
LOC: LABWHC1 08:54
PROVIDERS: ATTEND Internal Medicine Interventional Cardiology
DX: E78.5 Hyperlipidemia, unspecified (principal); I25.10 Atherosclerotic heart disease of native coronary artery without angina pectoris
CPT/HCPCS: 36415; 80061

== ENCOUNTER → 2022-12-25 | Outpatient (CLI) | payer BC ==
[2022-12-25 20:06] LABS: Blood Urea Nitrogen 13.7 mg/dL (9.0-27.0); Carbon Dioxide 26.2 mmol/L (21.6-31.8); Chloride 107 mmol/L (96-109); Potassium 4.9 mmol/L (3.5-5.5); Sodium 145 mmol/L (135-145)
[2022-12-25 21:36] LABS: HCT 47.4 % (39.6-50.0); HGB 14.5 d/dL (12.0-15.0); MCH 30.8 pg (27.0-32.0); MCHC 30.6 d/dL (32.0-37.0); MCV 100.6 FL (80.0-97.0); Mean Platelet Volume 10.2 FL (9.5-12.2); NRBC Per 100 WBC 0 X 10*3/uL (0.00-0.01); Platelet Count 352 X 10*3/uL (140-440); RBC 4.71 X 10*6/uL (4.40-5.60); RDW 13.5 % (11.5-14.5); WBC 8.05 X 10*3/uL (4.50-10.00)
== END | disposition home or self-care (01) ==
LOC: LABPAT 11:04
PROVIDERS: ATTEND Internal Medicine Interventional Cardiology
DX: Z01.812 Encounter for preprocedural laboratory examination (principal); R94.39 Abnormal result of other cardiovascular function study
CPT/HCPCS: 80051; 82565; 84520; 85027

== ENCOUNTER 2022-12-31 09:25 | Day surgery (SDC) | payer BC ==
[2022-12-31] MEDS: SODIUM CHLORIDE 0.9% 1,000 ML in EMPTY BAG 1 BAG IV SCH ×2 (09:47→18:12)
[2022-12-31 09:51] LABS: Glucose,Whole Blood 131 mg/dL (70-110)
[2022-12-31 09:54] VITALS: RESP 16
[2022-12-31] MEDS ORDERED: LIDOCAINE 1% INJ 10MG/ML (20 ML MDV) ONE (10:21)
[2022-12-31] MEDS ORDERED: MIDAZOLAM 2 MG/2 ML VIAL IVP ONE (10:50)
[2022-12-31] MEDS ORDERED: LIDOCAINE 1% INJ 10MG/ML (20 ML MDV) SQ ONE (11:03)
[2022-12-31] MEDS ORDERED: HEPARIN SODIUM 1,000 UN/ML (10ML VL) ONE (11:17)
[2022-12-31] MEDS: HEPARIN SODIUM 1,000 UN/ML (10ML VL) IVP ONE ×3 (11:19→11:44)
[2022-12-31] MEDS: NITROGLYCERIN 1000MCG/10ML SYRINGE INTRACORON ONE ×2 (11:23→11:48)
[2022-12-31] MEDS ORDERED: IOPAMIDOL-370 100ML BTL INJ ONE ×3 (11:36→12:17)
[2022-12-31] MEDS ORDERED: SODIUM CHLORIDE 0.9% 1,000 ML IV ONE (11:50)
[2022-12-31] MEDS ORDERED: CLOPIDOGREL 75 MG TAB ONE (11:53)
[2022-12-31] MEDS ORDERED: CLOPIDOGREL 75 MG TAB PO ONE (11:55)
[2022-12-31] MEDS ORDERED: ALBUTEROL NEBULIZED 2.5 MG/3 ML INHALATION PRN (12:27)
[2022-12-31] MEDS ORDERED: MAG HYDROX/AL HYDROX/SIMETH 30 ML CUP PO PRN (12:28)
[2022-12-31] MEDS ORDERED: RX INFO: IV CONTRAST WAS GIVEN 1 EACH MISC MISCELLANE PRN (12:28)
[2022-12-31] MEDS ORDERED: ATROPINE SULFATE 0.1 MG/ML 10ML SYRINGE IV PRN (12:28)
[2022-12-31] MEDS ORDERED: ZOLPIDEM 5 MG TAB PO PRN (12:28)
[2022-12-31] MEDS: IPRATROPIUM 0.5 MG/2.5 ML NEBU INHALATION SCH (19:41)
[2022-12-31] MEDS: FORMOTEROL FUMARATE 20 MCG/2 ML NEBU INHALATION SCH (19:41)
[2022-12-31] MEDS: DOCUSATE 100 MG CAP PO SCH (20:44)
[2022-12-31] MEDS: ISOSORBIDE MONONITRATE ER 30 MG TAB.ER.24H PO SCH (20:44)
[2022-12-31] MEDS: ASPIRIN 81 MG PO SCH (20:44)
[2022-12-31] MEDS ORDERED: ATORVASTATIN 80 MG TAB PO SCH (21:00)
--- NOTE | 2022-12-31 22:11 | CC ---
CARDIAC CATHETERIZATION REPORT DATE OF SERVICE: December 31, 2022. PROCEDURES PERFORMED: 1. Left heart catheterization and coronary angiography. 2. Instantaneous wave-free ratio assessment of proximal right coronary artery and mid left anterior descending. 3. Intravascular ultrasound of proximal right coronary artery. 4. Percutaneous transluminal coronary angioplasty and stenting of proximal right coronary artery with a drug-eluting stent. PERFORMED BY: Dr. Jim Olvera. ANESTHESIA: Moderate conscious sedation time was 72 minutes. The patient was administered Versed. Oxygen saturation, hemodynamics, and EKG were monitored closely. CLINICAL INFORMATION: Mr. Roby Quinteros is a 67-year-old gentleman with a known history of CAD, prior multivessel PCI. 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 The last stent was of a PDA branch of RCA performed in November of 2021. Prior to that in 2007, I performed stenting of mid LAD. At that time, proximal RCA was 35% stenosed and not intervened. Because of symptoms of chest tightness, pressure, shortness of breath, and abnormal stress test with a right- sided partially reversible moderate-sized defect, he was brought in for the cardiac catheterization. Risks, benefits, options, and rationale were explained. Previous radial catheterization was unsuccessful because of severe spasm; therefore, I proceeded with the right femoral procedure. PROCEDURE NOTE: Under local anesthesia and strict aseptic precautions, a 6-Tamazight introducer was placed in the right femoral artery. There was a lot of scar tissue. I had to use a dilator to help gain access. Using standard Amilcar catheters, I performed coronary angiography, and the same right catheter was used to check pressures in the left ventricle. Following this, I proceeded to perform iFR assessment of RCA and intervention. At the end of the procedure, the sheath was taken out, and Angio- Seal device was used to secure hemostasis, and he was sent to the room in a stable condition. Results were discussed with the patient and the family. Patient will be on Aspirin and Plavix for 1 year. CARDIAC CATHETERIZATION FINDINGS: The left ventricular end-diastolic pressure was 13 mmHg without any gradient across aortic valve. CORONARY ANGIOGRAPHY FINDINGS: RIGHT CORONARY ARTERY: Dominant vessel, has a proximal 60% lesion, and then the caliber improves distally. The RCA is large, bifurcates into PDA and PLV. Previously- stented PDA is widely patent with good flow. Proximal RCA, therefore, has a 60% to 65% narrowing. LEFT MAIN CORONARY ARTERY: Short, patent vessel. No significant disease. Bifurcates into LAD and circumflex. LEFT ANTERIOR DESCENDING CORONARY ARTERY: Good-caliber vessel, extends along the anterior wall, and there is a mid lesion where he had a previous stent. In that lesion, there is about a 50% narrowing with good flow. There is a diagonal branch proximal to that, which is free of significant disease and distally tapers. The septal branch is free of significant disease. Distal LAD is free of significant disease. LEFT POSTERIOR CIRCUMFLEX CORONARY ARTERY: Nondominant vessel, gives off a large obtuse marginal and then continues distally as a posterolateral branch. Minor irregularities. No significant disease. LEFT VENTRICULOGRAM: Not performed. FINAL IMPRESSION: This patient has a right-dominant system, 60% to 65% proximal right coronary artery stenosis. Previously-dilated posterior descending artery branch of right coronary artery is widely patent. Left main is normal. Left anterior descending has a 50% lesion within the previously-placed stent. In 2007, the stent was placed. Circumflex has minor irregularities, nondominant, no significant disease. Normal filling pressures. No gradient. RECOMMENDATIONS: I proceeded to perform iFR of RCA and LAD and if indicated PCI. PCI PROCEDURE DETAILS: I used a standard right Amilcar guide catheter and cannulated the right coronary artery. An Omni wire was used to perform iFR. After appropriate calibration and normalization, the iFR assessment suggested an iFR of 0.87 and 0.84 in the right coronary artery proximal lesion. I, therefore, proceeded with intervention of this vessel. I took the iFR wire out and used a Runthrough wire and crossed the lesion. Predilatation was performed with a 3.0-caliber NC Trek balloon. I then deployed a 4.0- caliber 12-mm long Xience stent at 13 atmospheres. Midportion of the stent was still not fully open. I used a 4.5 NC Trek of 8 mm length and dilated the midportion of the stent. Excellent angiographic result was achieved. I then performed intravascular ultrasound and noted that the stent was well apposed with full expansion and good apposition. I then turned my attention to the LAD. A standard left Amilcar guide catheter was used to cannulate the LAD. I had difficulty with the Omni wire to get into the LAD. The wire kept going into the diagonal. After a steep curve, I was able to advance the wire into the LAD and performed iFR after giving nitroglycerin and pulling the guide catheter out of the left ostium. After multiple iFR's were obtained, the average was 0.94, and the range was from 0.93 to 0.95. I decided not to do any intervention of the LAD. After giving some nitroglycerin, the LAD seems to open up very well. The wires and catheters were taken out. The sheath was taken out, and Angio-Seal device was used to secure hemostasis, and the patient was sent to the room in stable condition. Results were discussed with the patient as well as his . I expect he will be discharged tomorrow if he remains stable. Same medications except metformin were resumed. He will be hydrated. KOFI / HORTENCIA: [id number] / MTDD
[2023-01-01 02:45] VITALS: TEMP 97.7
[2023-01-01 06:46] LABS: Basophils % (A) 0 %; Eosinophils # (A) 0.3 k/uL (0-0.7); Eosinophils % (A) 4 %; HCT 39.3 % (39.0-53.0); HGB 12.8 gm/dL (13.0-17.5); Lymphocytes # (A) 1.7 k/uL (1.0-4.8); Lymphocytes % (A) 22 %; MCH 32.2 pg (25.0-35.0); MCHC 32.6 g/dL (31.0-37.0); MCV 98.5 fL (80.0-100.0); Monocytes # (A) 0.6 k/uL (0-1.0); Monocytes % (A) 8 %; Neutrophils % (A) 64 %; Platelet Count 239 k/uL (150-450); RBC 3.98 m/uL (4.30-5.90); RDW 13.7 % (11.5-15.5); WBC 7.9 k/uL (3.8-10.6)
[2023-01-01 06:53] LABS: African American GFR (CKD) >90 (>60 ml/min/1.73 sqM); Anion Gap 5 mmol/L; Blood Urea Nitrogen 13 mg/dL (9-20); Calcium 8.5 mg/dL (8.4-10.2); Carbon Dioxide 28 mmol/L (22-30); Chloride 104 mmol/L (98-107); Glucose 129 mg/dL (74-99); Non-African American GFR(CKD) >90 (>60 ml/min/1.73 sqM); Potassium 4.6 mmol/L (3.5-5.1); Sodium 137 mmol/L (137-145)
[2023-01-01] MEDS: ASPIRIN 81 MG PO SCH (07:48)
[2023-01-01] MEDS: DOCUSATE 100 MG CAP PO SCH (07:48)
[2023-01-01] MEDS: ISOSORBIDE MONONITRATE ER 30 MG TAB.ER.24H PO SCH (07:48)
[2023-01-01] MEDS: FORMOTEROL FUMARATE 20 MCG/2 ML NEBU INHALATION SCH (08:10)
[2023-01-01] MEDS: IPRATROPIUM 0.5 MG/2.5 ML NEBU INHALATION SCH (08:10)
[2023-01-01 08:39] VITALS: BP 119/62; PULSE 68
--- NOTE | 2023-01-01 08:42 | DS ---
DISCHARGE SUMMARY DIAGNOSES: 1. Unstable angina. 2. Hypertension. 3. Diabetes. 4. Hypercholesterolemia. HOSPITAL COURSE: Mr. Roby Quinteros was admitted to the hospital yesterday electively for an abnormal stress test. He has history of CAD, previous multivessel PCI. He had LAD PCI in 2007 and the PDA of RCA was stented in November 2021. Because of the reversible defects of moderate size in the inferior wall, he was brought in for the procedure. Cardiac cath revealed about a 60% proximal RCA lesion. IFR was positive. He had a stent of this performed yesterday uneventfully. I also checked IFR for mid LAD, which was also a 50% lesion, but the IFR was in the normal range of 0.93 to 0.95. Therefore, no intervention was performed. His right groin is clean and dry. EKG and lab work is good. He is asymptomatic. PHYSICAL EXAMINATION: VITALS: Stable. NECK: No JVD. HEART: S1, S2 heard normally, heart sounds are distant. LUNGS: Clear. ABDOMEN: Unremarkable. CENTRAL NERVOUS SYSTEM: Normal. Right groin is clean and dry with a good pulse. Patient will be discharged today and he already has a scheduled appointment to see me on the . Discharge instructions regarding activity, diet, and medications were given. No metformin until tomorrow. He is on dual-antiplatelet therapy, which will be continued for 1 year. He is already on a statin. The patient will be discharged later on today. MMODL / IJN: [id number] /
[2023-01-01] MEDS ORDERED: lisinopriL 5 MG TAB PO SCH (09:00)
[2023-01-01] MEDS ORDERED: CLOPIDOGREL 75 MG TAB PO SCH (09:00)
[2023-01-01] MEDS ORDERED: METOPROLOL SUCCINATE (ER) 50 MG TAB.ER.24H PO SCH (09:00)
[2023-01-01] MEDS ORDERED: Linaclotide [Linzess] 290 MCG Capsule PO SCH (09:00)
[2023-01-01] MEDS ORDERED: DAPAGLIFLOZIN PROPANEDIOL 10 MG TABLET PO SCH (09:00)
== END 2023-01-01 09:07 | disposition home or self-care (01) ==
LOC: CATHCVL 09:25 → 6NMEDSUR 12:19 → CATHCVL 01-01 09:07
PROVIDERS: ATTEND Internal Medicine Interventional Cardiology
DX: I25.10 Atherosclerotic heart disease of native coronary artery without angina pectoris (principal); I10 Essential (primary) hypertension; E78.5 Hyperlipidemia, unspecified; E11.9 Type 2 diabetes mellitus without complications; Z79.899 Other long term (current) drug therapy
CPT/HCPCS: 92978; 93458; 93799; 80048; 85025; C9600; C1760; C1887 ×2; C1769 ×4; C1894; C1753; C1874; C1725 ×2; J2250; J2001; J1644; Q9967

== ENCOUNTER → 2023-01-06 | Outpatient (CLI) | payer BC ==
[2023-01-06 15:59] LABS: HGB 14.1 d/dL (12.0-15.0); MCH 30.6 pg (27.0-32.0); MCHC 30.7 d/dL (32.0-37.0); MCV 99.8 FL (80.0-97.0); Mean Platelet Volume 9.4 FL (9.5-12.2); NRBC Per 100 WBC 0 X 10*3/uL (0.00-0.01); Platelet Count 308 X 10*3/uL (140-440); RBC 4.61 X 10*6/uL (4.40-5.60); WBC 9.06 X 10*3/uL (4.50-10.00)
[2023-01-06 16:06] LABS: BUN/Creat Ratio 12.64 Ratio (12.00-20.00); Blood Urea Nitrogen 13.9 mg/dL (9.0-27.0); Calcium 9.5 mg/dL (8.7-10.3); Carbon Dioxide 24.6 mmol/L (21.6-31.8); Chloride 105 mmol/L (96-109); Glucose 129 mg/dL (70-110); Potassium 4.4 mmol/L (3.5-5.5); Sodium 142 mmol/L (135-145)
== END | disposition home or self-care (01) ==
LOC: LABWHC1 09:43
PROVIDERS: ATTEND Internal Medicine Interventional Cardiology
DX: I25.10 Atherosclerotic heart disease of native coronary artery without angina pectoris (principal); J06.9 Acute upper respiratory infection, unspecified
CPT/HCPCS: 36415; 80048; 85027

== ENCOUNTER → 2023-01-22 | Outpatient (CLI) | payer BC ==
[2023-01-22 12:04] LABS: HCT 48.7 % (39.6-50.0); HGB 14.6 d/dL (13.0-17.0); MCV 103.4 FL (80.0-97.0); Mean Platelet Volume 8.9 FL (9.5-12.2); NRBC Per 100 WBC 0 X 10*3/uL (0.00-0.01); Platelet Count 236 X 10*3/uL (140-440); RBC 4.71 X 10*6/uL (4.40-5.60); RDW 13.8 % (11.5-14.5); WBC 8.63 X 10*3/uL (4.50-10.00)
[2023-01-22 12:06] LABS: Blood Urea Nitrogen 13.8 mg/dL (9.0-27.0); Carbon Dioxide 26.7 mmol/L (21.6-31.8); Chloride 106 mmol/L (96-109); Potassium 4.7 mmol/L (3.5-5.5); Sodium 142 mmol/L (135-145)
== END | disposition home or self-care (01) ==
LOC: LABPAT 09:39
PROVIDERS: ATTEND Internal Medicine Interventional Cardiology
DX: Z01.812 Encounter for preprocedural laboratory examination (principal); I10 Essential (primary) hypertension
CPT/HCPCS: 80051; 82565; 84520; 85027

== ENCOUNTER 2023-01-24 05:52 | Day surgery (SDC) | payer BC ==
[2023-01-22 13:33] VITALS: BMI 36.0
[2023-01-24] MEDS ORDERED: NITROGLYCERIN SL TABS 0.4 MG TAB SUBLINGUAL PRN (06:08)
[2023-01-24] MEDS ORDERED: ALPRAZolam 0.5 MG TAB PO PRN (06:08)
[2023-01-24] MEDS ORDERED: ALPRAZolam 0.25 MG TAB PO PRN (06:08)
[2023-01-24] MEDS ORDERED: SODIUM CHLORIDE 0.9% 1,000 ML in EMPTY BAG 1 BAG IV SCH (06:08)
[2023-01-24] MEDS ORDERED: SODIUM CHLORIDE 0.9% 1,000 ML IV ONE (06:22)
[2023-01-24 06:49] LABS: Glucose,Whole Blood 148 mg/dL (70-110)
[2023-01-24] MEDS ORDERED: HEPARIN SODIUM,PORCINE (1 ML) 2,500 UNIT in SODIUM CHLORIDE 0.9% 250 ML IRRIGATION PRN (07:00)
[2023-01-24] MEDS ORDERED: ATORVASTATIN 80 MG TAB PO ONE (07:00)
[2023-01-24] MEDS ORDERED: ASPIRIN 325 MG TAB PO ONE (07:00)
[2023-01-24] MEDS ORDERED: HEPARIN SODIUM,PORCINE 10,000 UNIT in SODIUM CHLORIDE 0.9% 1,000 ML IRRIGATION PRN (07:00)
[2023-01-24 07:01] VITALS: RESP 16; TEMP 98
[2023-01-24] MEDS ORDERED: fentaNYL (PF) 50 MCG/ML 2 ML AMP ONE (07:30)
[2023-01-24] MEDS ORDERED: fentaNYL (PF) 50 MCG/ML 2 ML AMP IVP ONE (07:31)
[2023-01-24] MEDS ORDERED: MIDAZOLAM 2 MG/2 ML VIAL IVP ONE (07:31)
[2023-01-24] MEDS ORDERED: HEPARIN SODIUM 1,000 UN/ML (10ML VL) ONE (07:31)
[2023-01-24] MEDS ORDERED: LIDOCAINE 1% INJ 10MG/ML (20 ML MDV) SQ ONE (07:33)
[2023-01-24] MEDS ORDERED: HEPARIN SODIUM 1,000 UN/ML (10ML VL) IV ONE (07:43)
[2023-01-24] MEDS: NITROGLYCERIN 1000MCG/10ML SYRINGE INTRACORON ONE ×2 (07:48→07:51)
[2023-01-24] MEDS ORDERED: IOPAMIDOL-370 100ML BTL INJ ONE (07:53)
[2023-01-24] MEDS ORDERED: ALBUTEROL NEBULIZED 2.5 MG/3 ML INHALATION PRN (08:08)
[2023-01-24] MEDS ORDERED: IPRATROPIUM-ALBUTEROL 3 ML NEB INHALATION SCH (08:15)
[2023-01-24] MEDS ORDERED: SODIUM CHLORIDE 0.9% 1,000 ML IV SCH (08:15)
--- NOTE | 2023-01-24 08:40 | CC ---
CARDIAC CATHETERIZATION REPORT PROCEDURES PERFORMED: Left heart catheterization and coronary angiography. PERFORMED BY: Dr. Jem Olvera. ANESTHESIA: Moderate conscious sedation time was 23 minutes. The patient was administered Versed and fentanyl. Oxygen saturation, hemodynamics, and EKG were monitored closely. CLINICAL INFORMATION: Mr. Roby Quinteros is a 67-year-old gentleman with history of hypertension, hyperlipidemia, type 2 diabetes, and also CAD with previous PCI performed in 2007 of mid LAD. He also has significant element of coronary spasm for which he is on nitrates. On December 31, I performed a proximal ultrasound. This was performed because of a borderline lesion of 60% to 65% of the positive iFR. He had a very large 4.0 caliber stent dilated with a 4.5 NC Trek balloon. However, there was a mid LAD lesion of 50%, but iFR was unremarkable. After discharge, he felt well for about a week and started having recurrent chest pains and therefore, I brought him for the procedure. The risks, benefits, options, rationale were explained. PROCEDURE NOTE: Under local anesthesia and strict aseptic precautions, a 6-Azeri introducer was placed in the right radial artery. Using a JL3.5 and JR4 catheters, I performed coronary angiography and the same right catheter was used to check LV pressures. The LV-gram was not performed. The sheath was taken out and TR band applied as per protocol. Saturation of the fingers was 92% to 93%. The patient tolerated the procedure well without complications. CARDIAC CATHETERIZATION FINDINGS: The left ventricular end-diastolic pressure was about 12 mmHg without any gradient across aortic valve. CORONARY ANGIOGRAPHY FINDINGS: Right coronary artery: Large dominant vessel recently stented, widely patent with brisk flow. Distally, it bifurcates into PDA and PLV, which have only minor irregularities. Proximal RCA has a widely patent stent without restenosis. Left main coronary artery: Short vessel free of significant disease. It bifurcates into LAD and circumflex. Left anterior descending coronary artery: Good-caliber vessel. The mid LAD stent is widely patent. At the junction of the proximal and mid LAD, there was a 40% to 50% lesion which was evaluated by iFR on his last procedure on December 31. That area looks widely patent with brisk flow. The residual stenosis, there is probably no more than 35% to 40%. The LAD has no other areas of disease. Mid LAD stent is widely patent with brisk flow. Left posterior circumflex coronary artery: Nondominant vessel, gives off a good-sized obtuse marginal, then a posterolateral branch. No significant disease or minor irregularities. Left ventriculogram was not performed. FINAL IMPRESSION: This patient has normal filling pressures. No gradient. Right-dominant system, widely patent. RCA that was stented and mid LAD stent is patent. Mid LAD lesion of about 40% is not significant with brisk flow. This lesion was checked by iFR on December 31. The patient has no significant obstructive CAD that requires intervention. RECOMMENDATIONS: I advised to continue current medical therapy. Increase Imdur to 30 mg b.i.d. Continue all his other medications as before. Findings were discussed with the patient and . I expect he will be discharged later on today and we will also do ultrasound of the gallbladder. He will follow up with his PCP, Dr. Singh. This note will go to him. MMODL / IJN: [id number] /
--- NOTE | 2023-01-24 08:59 | US ---
EXAMINATION TYPE: US gallbladder DATE OF EXAM: 01/24/2023 COMPARISON: NONE CLINICAL INDICATION: Male, 67 years old with history of R/O Cholelithiasis/Cholecycistitis; Heart cat h this morning. Patient states he feels like he is having a heart attack. TECHNIQUE: Multiple sonographic images of the right upper quadrant are obtained. FINDINGS: EXAM MEASUREMENTS: Liver Length: 19.3 cm Gallbladder Wall: 0.2 cm CBD: 0.5 cm Right Kidney: 12.3 x 5.7 x 6.0 cm Pancreas: Head and tail not visualized due to bowel gas. Visualized body shows no gross abnormality. Liver: Mildly enlarged. No focal lesion seen. Overall homogeneous echotexture. Gallbladder: Fold seen. No gallstones, wall thickening, hydropic change, or surrounding fluid. Evidence for sonographic Dixon's sign: neg CBD: wnl Right Kidney: No hydronephrosis or masses seen IMPRESSION: 1. Mild hepatomegaly at 19.3 cm. 2. No gallstones or biliary ductal dilatation.
[2023-01-24] MEDS ORDERED: CHOLECALCIFEROL 25 MCG (1000 IU) TABLET PO SCH (09:00)
[2023-01-24] MEDS ORDERED: lisinopriL 5 MG TAB PO SCH (09:00)
[2023-01-24] MEDS ORDERED: NON FORMULARY DRUG (L.Acidoph,Paracasei, B.Lactis [Probiotic] 1 EACH Capsule) PO SCH (09:00)
[2023-01-24] MEDS ORDERED: ATORVASTATIN 80 MG TAB PO SCH (09:00)
[2023-01-24] MEDS ORDERED: PANTOPRAZOLE 40 MG TABLET PO SCH (09:00)
[2023-01-24] MEDS ORDERED: ISOSORBIDE MONONITRATE ER 30 MG TAB.ER.24H PO SCH (09:00)
[2023-01-24] MEDS ORDERED: NON FORMULARY DRUG (Linaclotide [Linzess] 290 MCG Capsule) PO SCH (09:00)
[2023-01-24] MEDS ORDERED: NON FORMULARY DRUG (Cyanocobalamin (Vitamin B-12) [Vitamin B-12] 1,000 MCG Tablet) PO SCH (09:00)
[2023-01-24] MEDS ORDERED: NON FORMULARY DRUG (Tiotropium Br/Olodaterol Hcl [Stiolto Respimat Inhal Spray] 4 GM Each) INHALATION SCH (09:00)
[2023-01-24] MEDS ORDERED: DAPAGLIFLOZIN PROPANEDIOL 10 MG TABLET PO SCH (09:00)
[2023-01-24 12:20] VITALS: BP 111/59; PULSE 58
[2023-01-24] MEDS ORDERED: ASPIRIN 81 MG PO SCH (21:00)
[2023-01-25] MEDS ORDERED: CLOPIDOGREL 75 MG TAB PO SCH (09:00)
== END 2023-01-24 13:34 | disposition home or self-care (01) ==
LOC: CATHCVL 05:52
PROVIDERS: ATTEND Internal Medicine Interventional Cardiology
DX: I25.10 Atherosclerotic heart disease of native coronary artery without angina pectoris (principal); I10 Essential (primary) hypertension; E78.5 Hyperlipidemia, unspecified; E11.9 Type 2 diabetes mellitus without complications; Z95.5 Presence of coronary angioplasty implant and graft; Z79.82 Long term (current) use of aspirin; Z79.899 Other long term (current) drug therapy
CPT/HCPCS: 93458; 76705; C1769 ×3; C1894 ×2; J2250; J2001; J3010; J1644; Q9967; J2305

== ENCOUNTER → 2023-10-28 | Outpatient (CLI) | payer BC ==
--- NOTE | 2023-10-28 11:22 | US ---
EXAMINATION TYPE: US abdomen limited DATE OF EXAM: 10/28/2023 COMPARISON: NONE CLINICAL INDICATION: Male, 68 years old with history of N94.10 UNSPECIFIED DYSPAREUNIA; Assess for hernia at location of: supraumbilical Technique: Grayscale imaging of the abdominal wall. FINDINGS: No evidence for hernia at this time. No abnormality seen at this time at patient's area of concern IMPRESSION: No evidence for hernia or organizing fluid collection or mass. Real-time scanning was performed by the bushler utilizing Valsalva and additional dynamic maneuve rs to assess for hernia.
== END | disposition home or self-care (01) ==
LOC: RADUSWWP 06:47
PROVIDERS: ATTEND Family Medicine
DX: R10.9 Unspecified abdominal pain (principal); N53.12 Painful ejaculation
CPT/HCPCS: 76705

== ENCOUNTER → 2023-11-07 | Outpatient (CLI) | payer BC ==
[2023-11-07 17:02] LABS: African American GFR (CKD) 88 (>60 ml/min/1.73 sqM); Blood Urea Nitrogen 17 mg/dL (9-20); Non-African American GFR(CKD) 77 (>60 ml/min/1.73 sqM)
--- NOTE | 2023-11-07 18:37 | CT ---
EXAMINATION TYPE: CT abdomen pelvis w con CT DLP: 1752.8 mGycm, Automated exposure control for dose reduction was used. DATE OF EXAM: 11/07/2023 5:59 PM COMPARISON: 04/11/2021 CLINICAL INDICATION:Male, 68 years old with history of R10.9 UNSPECIFIED ABDOMINAL PAIN; umbilical ra diating to groin x 1 month TECHNIQUE: Axial CT abdomen pelvis w con;Sagittal and coronal reformats were created on a separate w orkstation. Contrast used:100 mL of Isovue 370 with IV Contrast, (none if empty) Oral contrast used: with Oral Contrast (none if empty) FINDINGS: LOWER CHEST: Streaky atelectasis in the lung bases. ABDOMEN LIVER: Unremarkable GALLBLADDER AND BILE DUCTS: Unremarkable. PANCREAS: Unremarkable. SPLEEN: Unremarkable. ADRENAL GLANDS: Stable morphology to the adrenal glands with nodular appearance bilaterally. KIDNEYS AND URETERS: No evidence of hydronephrosis or renal calculus. The ureters are unremarkable. PELVIS BLADDER: Unremarkable REPRODUCTIVE: Unremarkable. ABDOMEN & PELVIS STOMACH AND BOWEL: No evidence of bowel obstruction. The appendix is normal. PERITONEUM/RETROPERITONEUM: No evidence of pneumoperitoneum or free fluid. VASCULATURE: No evidence of aortic aneurysm. MUSCULOSKELETAL: No acute osseous abnormalities LYMPH NODES: No gross evidence for lymphadenopathy. SOFT TISSUE/ABDOMINAL WALL: Fat-containing inguinal hernias. IMPRESSION: 1. No evidence for acute abdominal process. 2. Fatty changes to the inguinal canals. 3. Normal appearing appendix. 4. No evidence for obstructive uropathy or renal calculus.
== END | disposition home or self-care (01) ==
LOC: RADCTMAIN 15:51
PROVIDERS: ATTEND Family Medicine
DX: K40.90 Unilateral inguinal hernia, without obstruction or gangrene, not specified as recurrent (principal); I10 Essential (primary) hypertension
CPT/HCPCS: 82565; 84520; 74177; 36415; Q9967

== ENCOUNTER → 2024-06-09 | Outpatient (CLI) | payer BC ==
[2024-06-09 16:19] LABS: African American GFR (CKD) >90 (>60 ml/min/1.73 sqM); Blood Urea Nitrogen 16 mg/dL (9-20); Non-African American GFR(CKD) 89 (>60 ml/min/1.73 sqM)
--- NOTE | 2024-06-09 17:12 | CT ---
EXAMINATION TYPE: CT angio chest DATE OF EXAM: 06/09/2024 4:46 PM COMPARISON: Chest radiograph from 04/21/2024 CLINICAL INDICATION: Male, 69 years old with history of R06.02 SHORT OF BREATH; SOB TECHNIQUE/CONTRAST: CTA scan of the thorax is performed with IV Contrast, patient injected with 100 mL of Isovue 370, MIP images are created and reviewed these are created on a separate workstation.. CT DLP: 574 mGycm, Automated exposure control for dose reduction was used. FINDINGS: Lungs/Pleura: Streaky atelectasis in the lung bases. No evidence of focal consolidation, pleural effu bran or pneumothorax. Airway: Large airways are patent. Heart: Heart is within normal limits for size. Vasculature: There is no evidence for a filling defect within the pulmonary vasculature to suggest ac lida pulmonary embolism. The pulmonary artery is of normal size. Mediastinum: No gross evidence of adenopathy. Musculoskeletal: No acute osseous abnormalities Soft Tissues/lymph nodes: Unremarkable. Lower neck: No significant findings. Upper Abdomen: No significant findings. IMPRESSION: 1. No evidence of pulmonary embolism. Follow up recommendations for incidental pulmonary nodules, if there are any, are per [employer] or [employer]. https://radiopaedia.org/articles/mcnaqhpxtm-mzbbtix-rcactknig-fgqckn-pgfdpkfpnishlps-7?lang=us [facility], , 06/09/2024 5:10 PM
== END | disposition home or self-care (01) ==
LOC: RADCTMAIN 15:29
PROVIDERS: ATTEND Internal Medicine
DX: R06.02 Shortness of breath (principal); J98.11 Atelectasis
CPT/HCPCS: 82565; 84520; 71275; 36415; Q9967

== ENCOUNTER → 2024-06-10 | Outpatient (CLI) | payer BC ==
[2024-06-10 19:28] LABS: Prostate Specific Antigen 4.74 ng/mL (0.000-4.500)
== END | disposition home or self-care (01) ==
LOC: LABWHC1 12:20
PROVIDERS: ATTEND Internal Medicine Interventional Cardiology
DX: R00.0 Tachycardia, unspecified (principal); N40.1 Benign prostatic hyperplasia with lower urinary tract symptoms
CPT/HCPCS: 36415; 84153; 84443

== ENCOUNTER → 2024-06-24 | Outpatient (CLI) | payer BC ==
[2024-06-24 20:53] LABS: Ferritin 26.5 ng/mL (22.0-322.0); T4, Free (Free Thyroxine) 1.11 ng/dL (0.80-1.80)
== END | disposition home or self-care (01) ==
LOC: LABWHC1 13:13
PROVIDERS: ATTEND Dermatology
DX: L02.821 Furuncle of head [any part, except face] (principal); E63.9 Nutritional deficiency, unspecified
CPT/HCPCS: 36415; 82652; 82728; 84439; 84443

== ENCOUNTER → 2024-07-19 | Outpatient (CLI) | payer BC ==
--- NOTE | 2024-07-19 10:35 | US ---
EXAMINATION TYPE: US kidneys/renal and bladder DATE OF EXAM: 07/19/2024 COMPARISON: CT abdomen and pelvis 11/07/2023 CLINICAL INDICATION: Male, 69 years old with history of N23 UNSPECIFIED RENAL COLIC; Right side pain TECHNIQUE: Grayscale imaging of the bilateral kidneys and urinary bladder: FINDINGS: EXAM MEASUREMENTS: Right Kidney: 12.3 x 4.8 x 5.8 cm Left Kidney: 12.3 x 6.1 x 5.5 cm Right Kidney: No hydronephrosis or masses seen Left Kidney: No hydronephrosis or masses seen Bladder: Anechoic Bilateral Jets seen: Yes There is no evidence for hydronephrosis at this point in time. Cortical medullary differentiation is maintained bilaterally. No nephrolithiasis is seen. No masses are identified. The urinary bladder is anechoic. IMPRESSION: No hydronephrosis or nephrolithiasis. [facility], , 07/19/2024 10:32 AM
== END | disposition home or self-care (01) ==
LOC: RADUSWWP 09:49
PROVIDERS: ATTEND Family Medicine
DX: N23 Unspecified renal colic (principal)
CPT/HCPCS: 76770

== ENCOUNTER → 2024-08-19 | Outpatient (CLI) | payer BC | END | disposition home or self-care (01) | LOC: LABWHC1 11:27 | PROVIDERS: ATTEND Surgery | DX: N40.1 Benign prostatic hyperplasia with lower urinary tract symptoms (principal) | CPT/HCPCS: 36415; 84153 ==

== ENCOUNTER → 2024-08-20 | Outpatient (CLI) | payer BC ==
--- NOTE | 2024-08-22 09:51 | US ---
EXAMINATION TYPE: US scrotum with doppler. DATE OF EXAM: 08/20/2024 COMPARISON: NONE CLINICAL INDICATION: Male, 69 years old with history of N50.811 RIGHT TESTICULAR PAIN; TECHNIQUE: Grayscale, color Doppler and spectral Doppler imaging of the scrotum. FINDINGS: EXAM MEASUREMENTS: TESTICLES: Right Testicle: 3.5x2.1x3.5 cm Left Testicle: 3.8x2.2x2.7 cm EPIDIDYMIS HEAD: Right Epididymis: 0.8x0.9x0.7 cm Left Epididymis: 0.9x0.8x0.6cm cm Doppler performed to assess for testicular vascularity; good bilateral color flow and spectral wavefo jayshree are seen. There is no evidence of testicular torsion. Presence of hydroceles: yes, mainly Rt, mild on Lt Presence of varicoceles: no IMPRESSION: 1. No evidence of testicular torsion or intratesticular mass. 2. Small to moderate sized right hydrocele with trace left hydrocele. [facility], , 08/22/2024 9:49 AM
== END | disposition home or self-care (01) ==
LOC: RADUSWWP 14:40
PROVIDERS: ATTEND Surgery
DX: N43.3 Hydrocele, unspecified (principal)
CPT/HCPCS: 76870; 93975

== ENCOUNTER → 2024-09-03 | Outpatient (CLI) | payer BC | END | disposition home or self-care (01) | LOC: LABWHC1 13:49 | PROVIDERS: ATTEND Surgery | DX: N40.1 Benign prostatic hyperplasia with lower urinary tract symptoms (principal) | CPT/HCPCS: 36415; 84153 ==

== ENCOUNTER → 2024-10-01 | Outpatient (CLI) | payer BC ==
--- NOTE | 2024-10-04 22:41 | P.PCN ---
Date of Procedure: 10/01/24 Operative Findings: Home sleep study Date of service is 10/01/2024 Pertinent history 69-year-old male patient with severe obstructive sleep apnea, has been diagnosed having obstructive sleep apnea through Dr. Bob. The patient stated that he is in need for new CPAP equipment and based on that a home sleep study was ordered to reestablish and confirm the diagnosis and proceed accordingly. Other comorbidities include coronary artery disease, diabetes mellitus with peripheral neuropathy, hypertension, hyperlipidemia, acid reflux in addition to cervical radiculopathy and neurogenic urinary bladder. Physical findings BMI is 41.5, Eastern score is at 6, weight is 218 pounds. Technical description The [employer] system was used to complete his home sleep study. This is a type III home sleep study evaluation. The total recording duration was 10 hours and 59 minutes. The study started at 11:12 PM and ended at 10:11 AM. There was a total of 10 hours and 37 minutes of flow monitoring-hours and 36 minutes of oxygen saturation monitoring. Results Respiratory analysis showed a total of 7 obstructive apneas and 22 obstructive hypopneas. The resulting AHI was 2.7 Oxygenation analysis Baseline pulse ox while awake was 92% at rest. Average pulse ox during sleep was 89% with a minimum pulse ox of 85% and the patient spent approximately 2 hours and 19 minutes of the sleep time below pulse ox of 89% Cardiac analysis The average heart rate was 77 with a minimum heart of 62 and a maximum heart of 188 Assessment No evidence of any significant sleep breathing disorder. The patient is AHI is at 2.7. However, the patient has been given diagnosis of sleep apnea through the previous evaluation and is using CPAP therapy for the time being. Nocturnal oxygen desaturation, related to COPD as the patient has chronic hypoxic respiratory failure Coronary artery disease Diabetes mellitus type 2 Hypertension Hyperlipidemia Peripheral neuropathy Cervical radiculopathy Neurogenic urinary bladder Plan We will retrieve the original polysomnography, done by Dr. Bob, there was the basis for this patient CPAP treatment. Note that the current home sleep study is not showing any significant sleep breathing disorder. Unable to reorder a new CPAP machine based on the current sleep study. For final confirmation, a PSG is recommended.
== END ==
LOC: 3 N SLEEP 12:57
PROVIDERS: ATTEND Internal Medicine Critical Care Medicine
DX: M54.12 Radiculopathy, cervical region (principal); G47.33 Obstructive sleep apnea (adult) (pediatric); E11.42 Type 2 diabetes mellitus with diabetic polyneuropathy; E78.5 Hyperlipidemia, unspecified; I10 Essential (primary) hypertension; I25.10 Atherosclerotic heart disease of native coronary artery without angina pectoris; J44.9 Chronic obstructive pulmonary disease, unspecified; J96.11 Chronic respiratory failure with hypoxia; K21.9 Gastro-esophageal reflux disease without esophagitis; N31.9 Neuromuscular dysfunction of bladder, unspecified; Z87.891 Personal history of nicotine dependence